=== PATIENT | male | born 1945 | race Caucasian/White ===

== ENCOUNTER → 2019-03-29 | Outpatient (CLI) | payer MEDICARE ==
[2019-03-29 12:40] LABS: Partial Thromboplastin Time 27.2 sec (22.0-30.0); Prothrombin Time 10.5 sec (9.0-12.0)
[2019-03-29 15:58] LABS: T4, Free (Free Thyroxine) 0.9 ng/dL (0.80-1.80)
== END | disposition home or self-care (01) ==
LOC: LABWHC1 12:09
PROVIDERS: ATTEND Psychiatry & Neurology Neurology
DX: I63.9 Cerebral infarction, unspecified (principal); R41.3 Other amnesia; R41.81 Age-related cognitive decline
CPT/HCPCS: 36415; 82175; 82570; 82607; 82747; 82947; 83655; 83825; 84439; 84443; 85610; 85652; 85730; 86038

== ENCOUNTER → 2019-04-11 | Outpatient (CLI) | payer MEDICARE, OTHER ==
--- NOTE | 2019-04-12 06:02 | MR ---
EXAMINATION TYPE: MR brain wo con DATE OF EXAM: 04/11/2019 COMPARISON: NONE HISTORY: Memory and vision loss TECHNIQUE: Multiplanar, multisequence imaging of the brain and brainstem is performed without IV cont rast. FINDINGS: Diffusion weighted images demonstrate no evidence of a recent infarct or other diffusion abnormality. There is no worrisome extra-axial fluid collection. There is diffuse ventricular and sulcal prominenc e. There are scattered foci of T2 hyperintensity seen throughout the white matter bilaterally most pr ominent deep and periventricular levels. In the anterior aspect of the left posterior cranial fossa t here is extra-axial mass measuring 1.7 x 1.7 x 2.2 cm axial image 80 and coronal image 19 of slight T 2 hyperintensity and T1 hypointensity with dural extension left lateral aspect shows posterior to the vestibulocochlear complex felt to reflect a meningioma with local mass effect on the adjacent cerebe llum anterior aspect. Midline structures demonstrate normal morphology. The craniocervical junction appears within normal limits. Normal vascular flow voids are present. The visualized sinuses are clear and the globes are i ntact. IMPRESSION: 1. Mild to moderate diffuse cerebral atrophy and chronic small vessel ischemic change. 2. There is 2.2 cm anterior left posterior cranial fossa extra-axial mass presumed meningioma just po sterior to the left vestibulocochlear complex with local mass effect, neurosurgical referral advised.
== END | disposition home or self-care (01) ==
LOC: RADMRIMAIN 16:56
PROVIDERS: ATTEND Psychiatry & Neurology Neurology
DX: G31.9 Degenerative disease of nervous system, unspecified (principal); I67.82 Cerebral ischemia; H54.7 Unspecified visual loss; R41.3 Other amnesia
CPT/HCPCS: 70551

== ENCOUNTER 2021-03-24 08:16 | Inpatient (IN) | payer MEDICARE, OTHER ==
[2021-03-24] MEDS ORDERED: ACETAMINOPHEN TAB 500 MG TAB PO STA (08:48)
[2021-03-24] MEDS ORDERED: IBUPROFEN 600 MG TAB PO STA (08:48)
[2021-03-24] MEDS ORDERED: cefTRIAXone IN SWFI 1,000 MG/10 ML SYRINGE IVP STA (08:50)
--- NOTE | 2021-03-24 08:53 | ED ---
General Adult HPI - General Chief complaint: Altered Mental Status Stated complaint: confusion Time Seen by Provider: 03/24/21 08:20 Source: EMS, RN notes reviewed, old records reviewed Mode of arrival: EMS Limitations: no limitations - History of Present Illness Initial comments: This is a 75-year-old male presents emergency Department by EMS. Patient is a poor historian he is altered and does not give an accurate history. EMS states patient was found to be altered at his residence. Early this morning he was found walking around his apartment complex naked and a neighbor helped him to his room and help him get dressed and then a few hours later the neighbor found him altered significantly and decided to bring the patient to the emergency dep artment. Patient does have a fever. No other history is available this time. - Related Data Home Medications Medication Instructions Recorded Confirmed Brimonidine Tartrate [Alphagan P 1 drops LEFT EYE BID 03/24/21 03/24/21 0.2% Ophth Soln] Donepezil HCl [Aricept] 10 mg PO DAILY 03/24/21 03/24/21 Ibuprofen [Motrin] 400 mg PO Q6HR PRN 03/24/21 03/24/21 Latanoprost [Xalatan 0.005%] 1 drop LEFT EYE BID 03/24/21 03/24/21 Vitamin C Plus 1 tab PO DAILY 03/24/21 03/24/21 Zinc 50 mg PO DAILY 03/24/21 03/24/21 prednisoLONE ACETATE 1% OPHTH 1 drops LEFT EYE HS 03/24/21 03/24/21 [Pred Forte 1%] Allergies Allergy/AdvReac Type Severity Reaction Status Date / Time No Known Allergies Allergy Verified 03/24/21 08:59 Review of Systems ROS Statement: Those systems with pertinent positive or pertinent negative responses have been documented in the HPI. ROS Other: All systems not noted in ROS Statement are negative. Past Medical History Past Medical History: Unable to Obtain, Dementia History of Any Multi-Drug Resistant Organisms: None Reported Past Surgical History: Unable to Obtain Past Psychological History: No Psychological Hx Reported Smoking Status: Former smoker Past Alcohol Use History: None Reported Past Drug Use History: None Reported General Exam - General Exam Comments Initial Comments: GENERAL: Patient is well-developed and well-nourished. Patient is nontoxic and well- hydrated and is in mild distress. ENT: Neck is soft and supple. No significant lymphadenopathy is noted. Oropharynx is clear. Moist mucous membranes. Neck has full range of motion without eliciting any pain. EYES: The sclera were anicteric and conjunctiva were pink and moist. Extraocular movements were intact and pupils were equal round and reactive to light. Eyelids were unremarkable. PULMONARY: Unlabored respirations. Good breath sounds bilaterally. No audible rales rhonchi or wheezing was noted. CARDIOVASCULAR: There is a regular rate and rhythm without any murmurs gallops or rubs. ABDOMEN: Soft and nontender with normal bowel sounds. SKIN: Skin is clear with no lesions or rashes and otherwise unremarkable. NEUROLOGIC: Patient is alert and oriented 1. Cranial nerves II through XII are grossly intact. Motor and sensory are also intact. Normal speech, volume and content. Symmetrical smile. MUSCULOSKELETAL: Normal extremities with adequate strength and full range of motion. LYMPHATICS: No significant lymphadenopathy is noted PSYCHIATRIC: Unable to assess Limitations: no limitations Course Vital Signs 03/24/21 03/24/21 03/24/21 08:19 09:38 10:55 Temperature 101.6 F H 98.3 F Pulse Rate 90 70 72 Respiratory 18 18 18 Rate Blood Pressure 141/84 137/92 128/72 O2 Sat by Pulse 96 98 98 Oximetry Medical Decision Making - Medical Decision Making EKG shows sinus rhythm at 83 bpm [place] interval is 90 QRS is 96 QT interval 380 QTC is 455. Patient's EKG shows no ST segment elevation or depression. Chest x-ray showed no acute abnormality. Patient was positive for COVID. Patient was given monoclonal antibodies. Patient continued to be more altered than his baseline per his brother and therefore we admitted the patient for altered mental status and not for COVID. Patient will also have a social work consult. I spoke with the [facility] hospitalist and he agreed to admit the patient admitted the patient wrote admitting orders - Lab Data Result diagrams: 03/24/21 09:20 03/24/21 09:20 Lab Results 03/24/21 03/24/21 03/24/21 Range/Units 08:48 09:20 09:20 WBC 2.8 L (3.8-10.6) k/uL RBC 3.76 L (4.30-5.90) m/uL Hgb 11.5 L (13.0-17.5) gm/dL Hct 32.8 L (39.0-53.0) % MCV 87.2 (80.0-100.0) fL MCH 30.6 (25.0-35.0) pg MCHC 35.1 (31.0-37.0) g/dL RDW 13.1 (11.5-15.5) % Plt Count 159 (150-450) k/uL MPV 7.6 Neutrophils % 70 % Lymphocytes % 19 % Monocytes % 9 % Eosinophils % 0 % Basophils % 0 % Neutrophils # 1.9 (1.3-7.7) k/uL Lymphocytes # 0.5 L (1.0-4.8) k/uL Monocytes # 0.3 (0-1.0) k/uL Eosinophils # 0.0 (0-0.7) k/uL Basophils # 0.0 (0-0.2) k/uL PT 11.2 (9.0-12.0) sec INR 1.1 (<1.2) APTT 27.3 (22.0-30.0) sec Sodium (137-145) mmol/L Potassium (3.5-5.1) mmol/L Chloride (98-107) mmol/L Carbon Dioxide (22-30) mmol/L Anion Gap mmol/L BUN (9-20) mg/dL Creatinine (0.66-1.25) mg/dL Est GFR (CKD-EPI)AfAm (>60 ml/min/1.73 sqM) Est GFR (CKD-EPI)NonAf (>60 ml/min/1.73 sqM) Glucose (74-99) mg/dL Plasma Lactic Acid Silvestre (0.7-2.0) mmol/L Calcium (8.4-10.2) mg/dL Total Bilirubin (0.2-1.3) mg/dL AST (17-59) U/L ALT (4-49) U/L Alkaline Phosphatase (38-126) U/L Troponin I (0.000-0.034) ng/mL Total Protein (6.3-8.2) g/dL Albumin (3.5-5.0) g/dL Coronavirus (PCR) Detected A (Not Detectd) Influenza Type A RNA (Not Detectd) Influenza Type B (PCR) (Not Detectd) 12/09/0703/24/21 03/24/21 Range/Units 09:20 09:20 09:20 WBC (3.8-10.6) k/uL RBC (4.30-5.90) m/uL Hgb (13.0-17.5) gm/dL Hct (39.0-53.0) % MCV (80.0-100.0) fL MCH (25.0-35.0) pg MCHC (31.0-37.0) g/dL RDW (11.5-15.5) % Plt Count (150-450) k/uL MPV Neutrophils % % Lymphocytes % % Monocytes % % Eosinophils % % Basophils % % Neutrophils # (1.3-7.7) k/uL Lymphocytes # (1.0-4.8) k/uL Monocytes # (0-1.0) k/uL Eosinophils # (0-0.7) k/uL Basophils # (0-0.2) k/uL PT (9.0-12.0) sec INR (<1.2) APTT (22.0-30.0) sec Sodium 135 L (137-145) mmol/L Potassium 4.3 (3.5-5.1) mmol/L Chloride 100 (98-107) mmol/L Carbon Dioxide 24 (22-30) mmol/L Anion Gap 11 mmol/L BUN 35 H (9-20) mg/dL Creatinine 1.13 (0.66-1.25) mg/dL Est GFR (CKD-EPI)AfAm 75 (>60 ml/min/1.73 sqM) Est GFR (CKD-EPI)NonAf 64 (>60 ml/min/1.73 sqM) Glucose 94 (74-99) mg/dL Plasma Lactic Acid Silvestre 0.9 (0.7-2.0) mmol/L Calcium 8.8 (8.4-10.2) mg/dL Total Bilirubin 0.3 (0.2-1.3) mg/dL AST 48 (17-59) U/L ALT 18 (4-49) U/L Alkaline Phosphatase 78 (38-126) U/L Troponin I <0.012 (0.000-0.034) ng/mL Total Protein 7.4 (6.3-8.2) g/dL Albumin 4.4 (3.5-5.0) g/dL Coronavirus (PCR) (Not Detectd) Influenza Type A RNA (Not Detectd) Influenza Type B (PCR) (Not Detectd) 03/24/21 Range/Units 09:20 WBC (3.8-10.6) k/uL RBC (4.30-5.90) m/uL Hgb (13.0-17.5) gm/dL Hct (39.0-53.0) % MCV (80.0-100.0) fL MCH (25.0-35.0) pg MCHC (31.0-37.0) g/dL RDW (11.5-15.5) % Plt Count (150-450) k/uL MPV Neutrophils % % Lymphocytes % % Monocytes % % Eosinophils % % Basophils % % Neutrophils # (1.3-7.7) k/uL Lymphocytes # (1.0-4.8) k/uL Monocytes # (0-1.0) k/uL Eosinophils # (0-0.7) k/uL Basophils # (0-0.2) k/uL PT (9.0-12.0) sec INR (<1.2) APTT (22.0-30.0) sec Sodium (137-145) mmol/L Potassium (3.5-5.1) mmol/L Chloride (98-107) mmol/L Carbon Dioxide (22-30) mmol/L Anion Gap mmol/L BUN (9-20) mg/dL Creatinine (0.66-1.25) mg/dL Est GFR (CKD-EPI)AfAm (>60 ml/min/1.73 sqM) Est GFR (CKD-EPI)NonAf (>60 ml/min/1.73 sqM) Glucose (74-99) mg/dL Plasma Lactic Acid Silvestre (0.7-2.0) mmol/L Calcium (8.4-10.2) mg/dL Total Bilirubin (0.2-1.3) mg/dL AST (17-59) U/L ALT (4-49) U/L Alkaline Phosphatase (38-126) U/L Troponin I (0.000-0.034) ng/mL Total Protein (6.3-8.2) g/dL Albumin (3.5-5.0) g/dL Coronavirus (PCR) (Not Detectd) Influenza Type A RNA Not Detected (Not Detectd) Influenza Type B (PCR) Not Detected (Not Detectd) Disposition Clinical Impression: Altered mental status, COVID-19 Disposition: ADMITTED IP TO THIS HOSP Referrals: None,Stated [Primary Care Provider] - 1-2 days Time of Disposition: 11:57
[2021-03-24] MEDS: SODIUM CHLORIDE 0.9% 500 ML 500 ML IV SCH ×2 (09:32→13:45)
--- NOTE | 2021-03-24 09:34 | XR ---
EXAMINATION TYPE: XR chest 1V portable DATE OF EXAM: 03/24/2021 COMPARISON: None HISTORY: Fever TECHNIQUE: Single frontal view of the chest is obtained. FINDINGS: There is no focal air space opacity, pleural effusion, or pneumothorax seen. . The heart size is normal and the pulmonary vasculature is not congested. The right hilum is prominent and the possibility of mass is not excluded. The osseous structures are intact. IMPRESSION: 1. Prominent right hilum and adenopathy or mass is not excluded. CT of the chest might be useful for further evaluation. 2. No abnormality of the lungs
[2021-03-24 09:53] LABS: Basophils % (A) 0 %; Eosinophils % (A) 0 %; HCT 32.8 % (39.0-53.0); HGB 11.5 gm/dL (13.0-17.5); Lymphocytes # (A) 0.5 k/uL (1.0-4.8); Lymphocytes % (A) 19 %; MCH 30.6 pg (25.0-35.0); MCHC 35.1 g/dL (31.0-37.0); MCV 87.2 fL (80.0-100.0); Mean Platelet Volume 7.6; Monocytes # (A) 0.3 k/uL (0-1.0); Monocytes % (A) 9 %; Neutrophils # (A) 1.9 k/uL (1.3-7.7); Neutrophils % (A) 70 %; Platelet Count 159 k/uL (150-450); RBC 3.76 m/uL (4.30-5.90); RDW 13.1 % (11.5-15.5); WBC 2.8 k/uL (3.8-10.6)
[2021-03-24 09:55] LABS: Albumin 4.4 g/dL (3.5-5.0); Calcium 8.8 mg/dL (8.4-10.2); Potassium 4.3 mmol/L (3.5-5.1); Total Bilirubin 0.3 mg/dL (0.2-1.3); Total Protein 7.4 g/dL (6.3-8.2)
[2021-03-24 10:03] LABS: INR 1.1 (<1.2); Partial Thromboplastin Time 27.3 sec (22.0-30.0); Prothrombin Time 11.2 sec (9.0-12.0)
[2021-03-24] MEDS ORDERED: SODIUM CHLORIDE 0.9% 1,000 ML IV ONE (11:58)
[2021-03-24] MEDS ORDERED: SODIUM CHLORIDE 0.9% 50 ML IVPB ONE (12:00)
[2021-03-24] MEDS ORDERED: SOTROVIMAB (EUA) 500 MG in SODIUM CHLORIDE 0.9% 100 ML IVPB ONE (12:00)
--- NOTE | 2021-03-24 20:09 | P.HPIM ---
History of Present Illness H&P Date: 03/24/21 Chief Complaint: Altered mental status Patient is a 75-year-old male with a known history of dementia was brought to the hospital by EMS due to altered mental status. Patient is a poor historian. Apparently EMS found the patient to be altered at his residence. Patient's n eighbor in the morning he was found walking around his apartment complex make it and enable heparin will resume and get him dressed. Fevers later neighbor found him altered significantly and decided to call EMS and patient was brought to the emergency room. Patient states that she has not been feeling well for the past 3-4 days. In the ER blood pressure 141/84 pulse 90 respirations 18 and T-max 11.6 and pulse ox 96% on room air. Chest x-ray showed prominent right hilum and adenopathy or mass is not excluded. CT of the chest might be helpful for further evaluation. No abnormality of the lungs. EKG showed sinus rhythm with short [place] interval. Laboratory data showed WBC 2.8 hemoglobin 11.5 and platelets 159 Lymphocytes 0.5 Sodium 1:30 depression 4.3 chloride 100 bicarb is 24 BUN 35 and creatinine 1.13 Liver enzymes are not elevated. Troponin 1 negative Urinalysis is negative for infection. Cor with 19 PCR detected. Review of Systems Constitutional: Patient denies any fever or chills . No generalized weakness or weight loss. Abdomen: Patient denied nausea vomiting and diarrhea and abdominal pain. Cardiovascular: Patient denies any chest pain or short of breath no palpitations. Respiratory: patient denied any cough is from production. Minimal shortness of breath Neurologic: Patient denied any numbness or tingling headache. Complete review of systems could not be obtained from the patient. Past Medical History Past Medical History: Unable to Obtain, Dementia History of Any Multi-Drug Resistant Organisms: None Reported Past Surgical History: Unable to Obtain Past Psychological History: No Psychological Hx Reported Smoking Status: Former smoker Past Alcohol Use History: None Reported Past Drug Use History: None Reported Medications and Allergies Home Medications Medication Instructions Recorded Confirmed Type Brimonidine Tartrate [Alphagan P 1 drops LEFT EYE BID 03/24/21 03/24/21 History 0.2% Ophth Soln] Donepezil HCl [Aricept] 10 mg PO DAILY 03/24/21 03/24/21 History Ibuprofen [Motrin] 400 mg PO Q6HR PRN 03/24/21 03/24/21 History Latanoprost [Xalatan 0.005%] 1 drop LEFT EYE BID 03/24/21 03/24/21 History Vitamin C Plus 1 tab PO DAILY 03/24/21 03/24/21 History Zinc 50 mg PO DAILY 03/24/21 03/24/21 History prednisoLONE ACETATE 1% OPHTH 1 drops LEFT EYE HS 03/24/21 03/24/21 History [Pred Forte 1%] Allergies Allergy/AdvReac Type Severity Reaction Status Date / Time No Known Allergies Allergy Verified 03/24/21 08:59 Physical Exam Vitals: Vital Signs Temp Pulse Resp BP Pulse Ox 03/24/21 18:00 75 16 123/83 98 03/24/21 15:00 82 17 118/88 95 03/24/21 10:55 98.3 F 72 18 128/72 98 03/24/21 09:38 70 18 137/92 98 03/24/21 08:19 101.6 F H 90 18 141/84 96 Intake and Output 03/24/21 03/24/21 03/24/21 06:59 14:59 22:59 Other: Weight 62.596 kg PHYSICAL EXAMINATION: Patient is lying in the bed comfortably, no acute distress, awake alert and oriented. Confused.. HEENT: Normocephalic. Neck is supple. Pupils reactive. Nostrils clear. Oral cavity is moist. Neck reveals no JVD, carotid bruits, or thyromegaly. CHEST EXAMINATION: Trachea is central. Symmetrical expansion. Scattered coarse sounds. Lung guevara clear to auscultation and percussion. CARDIAC: Normal S1, S2 with no gallops. No murmurs ABDOMEN: Soft. Bowel sounds normal. No organomegaly. No abdominal bruits. Extremities: reveal no edema. No clubbing or cyanosis Neurologically awake, alert, oriented x2-3 with well-coordinated movements. Underlying dementia. No gross focal deficits noted Skin: No rash or skin lesions. Psychiatric: Coperative. Could not be obtained completely. Musculoskeletal: No joint swelling or deformity. Normal range of motion. Results CBC & Chem 7: 03/25/21 04:47 03/24/21 09:20 Labs: Abnormal Lab Results - Last 24 Hours (Table) 03/24/21 03/24/21 03/24/21 Range/Units 08:48 09:20 09:20 WBC 2.8 L (3.8-10.6) k/uL RBC 3.76 L (4.30-5.90) m/uL Hgb 11.5 L (13.0-17.5) gm/dL Hct 32.8 L (39.0-53.0) % Lymphocytes # 0.5 L (1.0-4.8) k/uL Sodium 135 L (137-145) mmol/L BUN 35 H (9-20) mg/dL Coronavirus (PCR) Detected A (Not Detectd) Thrombosis Risk Factor Assmnt - DVT/VTE Prophylaxis DVT/VTE Prophylaxis: Pharmacologic Prophylaxis ordered Assessment and Plan Assessment: Acute covid 19 infection. Patient has not been feeling well for the past 3-4 days. Not hypoxic. Received monoclonal antibodies in the ER. Altered mental status possible metabolic encephalopathy due to infection Neutropenia and normocytic anemia Prominent right hilum and adenopathy. Mass cannot be excluded. Dehydration and volume depletion with elevated BUN level. Dementia History of glaucoma Mild to moderate protein calorie malnutrition DVT prophylaxis with Lovenox subcu Plan: Patient will be continued on gentle IV hydration and monitor respiratory status closely. Supplemental oxygen as needed. Continue with Lovenox subcu and multivitamins for coronary 19 infection. Patient is not hypoxic currently and does not need dexamethasone. Follow-up inflammatory markers. Continue to follow electrolytes. Continue with home medications and follow up closely. Prognosis is guarded this time. Time with Patient: Greater than 30
[2021-03-25] MEDS ORDERED: ACETAMINOPHEN TAB 500 MG TAB PO STA (00:55)
[2021-03-25] MEDS ORDERED: IBUPROFEN 400 MG TAB PO STA (06:20)
[2021-03-25 08:01] LABS: Appearance,Urine Clear (Clear); Bilirubin,Urine Negative (Negative); Blood,Urine Trace (Negative); Color,Urine Yellow; Glucose,Urine (UA) Negative (Negative); Hyaline Casts,Urine 1 /lpf (0-2); Ketones,Urine 1+ (Negative); Leukocyte Esterase,Urine Negative (Negative); Nitrite,Urine Negative (Negative); PH, Urine 5.5 (5.0-8.0); Protein,Urine Trace (Negative); RBC,Urine <1 /hpf (0-5); Specific Gravity,Urine 1.018 (1.001-1.035); Urobilinogen,Urine <2.0 mg/dL (<2.0); WBC,Urine <1 /hpf (0-5)
[2021-03-25 08:54] LABS: Basophils # (A) 0 X 10*3/uL (0.00-0.10); Basophils % (A) 0 %; Eosinophils # (A) 0 X 10*3/uL (0.04-0.35); Eosinophils % (A) 0 %; HCT 32.5 % (39.6-50.0); HGB 10.6 g/dL (13.0-17.0); Lymphocytes # (A) 0.63 X 10*3/uL (0.90-5.00); Lymphocytes % (A) 15.4 %; MCH 29.6 pg (27.0-32.0); MCHC 32.6 g/dL (32.0-37.0); MCV 90.8 fL (80.0-97.0); Mean Platelet Volume 9.9 fL (9.5-12.2); Monocytes # (A) 0.27 X 10*3/uL (0.20-1.00); Monocytes % (A) 6.6 %; Neutrophils # (A) 3.18 X 10*3/uL (1.80-7.70); Neutrophils % (A) 77.8 %; Platelet Count 147 X 10*3/uL (140-440); RBC 3.58 X 10*6/uL (4.40-5.60); RDW 12.9 % (11.5-14.5); WBC 4.09 X 10*3/uL (4.50-10.00)
[2021-03-25 09:58] LABS: African American GFR (CKD) 97.9 (60.0-200.0); BUN/Creat Ratio 22.33 Ratio (12.00-20.00); Blood Urea Nitrogen 20.1 mg/dL (9.0-27.0); Calcium 8.2 mg/dL (8.7-10.3); Carbon Dioxide 21.3 mmol/L (20.0-27.5); Chloride 102 mmol/L (96-109); Glucose 101 mg/dL (70-110); Non-African American GFR(CKD) 84.4 (60.0-200.0); Potassium 4.1 mmol/L (3.5-5.5); Sodium 137 mmol/L (135-145)
[2021-03-25 09:59] LABS: LDH 218 U/L (120-246)
[2021-03-25] MEDS: ENOXAPARIN 40 MG/0.4 ML SYRINGE SQ SCH (09:59)
[2021-03-25] MEDS: BRIMONIDINE TARTRATE 0.2% DROPS 5 ML BTL LEFT EYE SCH ×2 (10:00→21:40)
[2021-03-25] MEDS: DONEPEZIL 10 MG TAB PO SCH (10:00)
[2021-03-25] MEDS: ASCORBIC ACID 500 MG TAB PO SCH (10:00)
[2021-03-25] MEDS: ZINC SULFATE 220 MG CAP PO SCH (10:00)
[2021-03-25] MEDS: CHOLECALCIFEROL 25 MCG (1000 IU) TABLET PO SCH (10:00)
[2021-03-25] MEDS: LATANOPROST 0.005% OPHTH DROPS 2.5 ML BTL LEFT EYE SCH ×2 (10:00→21:41)
[2021-03-25] MEDS: prednisoLONE ACETATE 1% OPHTH DROPS 5 ML BTL LEFT EYE SCH (21:40)
[2021-03-26] MEDS: ASCORBIC ACID 500 MG TAB PO SCH (08:55)
[2021-03-26] MEDS: CHOLECALCIFEROL 25 MCG (1000 IU) TABLET PO SCH (08:55)
[2021-03-26] MEDS: ZINC SULFATE 220 MG CAP PO SCH (08:55)
[2021-03-26] MEDS: DONEPEZIL 10 MG TAB PO SCH (08:55)
[2021-03-26] MEDS: ENOXAPARIN 40 MG/0.4 ML SYRINGE SQ SCH (08:55)
[2021-03-26] MEDS: BRIMONIDINE TARTRATE 0.2% DROPS 5 ML BTL LEFT EYE SCH ×2 (09:01→21:56)
[2021-03-26] MEDS: LATANOPROST 0.005% OPHTH DROPS 2.5 ML BTL LEFT EYE SCH ×2 (09:02→21:57)
--- NOTE | 2021-03-26 10:58 | P.PN ---
Subjective Progress Note Date: 03/25/21 Principal diagnosis: Acute covid 19 infection and generalized weakness and altered mental status on admission. Patient is a 75-year-old male with a known history of dementia was brought to the hospital by EMS due to altered mental status. Patient is a poor historian. Apparently EMS found the patient to be altered at his residence. Patient's neighbor in the morning he was found walking around his apartment complex make it and enable heparin will resume and get him dressed. Fevers later neighbor found him altered significantly and decided to call EMS and patient was brought to the emergency room. Patient states that she has not been feeling well for the past 3-4 days. In the ER blood pressure 141/84 pulse 90 respirations 18 and T-max 11.6 and pulse ox 96% on room air. Chest x-ray showed prominent right hilum and adenopathy or mass is not excluded. CT of the chest might be helpful for further evaluation. No abnormality of the lungs. EKG showed sinus rhythm with short [place] interval. Laboratory data showed WBC 2.8 hemoglobin 11.5 and platelets 159 Lymphocytes 0.5 Sodium 1:30 depression 4.3 chloride 100 bicarb is 24 BUN 35 and creatinine 1.13 Liver enzymes are not elevated. Troponin 1 negative Urinalysis is negative for infection. Cor with 19 PCR detected. 03/25/2021 Patient is in the emergency room. Still having mild confusion. It appears to be weak. No complaints of chest pain or worsening shortness breath. Patient is maintained oxygen 97-95% on room air. No complaints of chest pain. No headache or dizziness or lightheadedness. Patient is a poor historian due to underlying dementia. Patient has been afebrile. Continue on Lovenox and multivitamins. Continued on gentle IV hydration. Encourage oral intake and PTOT consulted. Laboratory data showed WBC 4.0 hemoglobin 10.6 and platelets 147 lymphocytes 0.63 BUN 20 and creatinine 0.9 TSH by 0.504. Urinalysis is negative for infection. Current medications reviewed. Objective - Vital Signs Vital signs: Vital Signs Temp 98.0 F 03/26/21 06:23 Pulse 77 03/26/21 06:23 Resp 19 03/26/21 06:23 BP 135/87 03/26/21 06:23 Pulse Ox 98 03/26/21 06:23 Intake & Output 1203/26/21 03/26/21 18:59 06:59 18:59 Weight 62.596 kg Other: # Voids 3 2 - Exam PHYSICAL EXAMINATION: Patient is lying in the bed comfortably, no acute distress, awake alert and oriented. Generalized weakness. HEENT: Normocephalic. Neck is supple. Pupils reactive. Nostrils clear. Oral cavity is moist. Neck reveals no JVD, carotid bruits, or thyromegaly. CHEST EXAMINATION: Trachea is central. Symmetrical expansion. Scattered coarse sounds. Lung guevara clear to auscultation and percussion. CARDIAC: Normal S1, S2 with no gallops. No murmurs ABDOMEN: Soft. Bowel sounds normal. No organomegaly. No abdominal bruits. Extremities: reveal no edema. No clubbing or cyanosis Neurologically awake, alert, oriented x2-3 with well-coordinated movements. Underlying dementia. No gross focal deficits noted Skin: No rash or skin lesions. Psychiatric: Coperative. Could not be obtained completely. Musculoskeletal: No joint swelling or deformity. Normal range of motion. - Labs CBC & Chem 7: 03/25/21 04:47 03/25/21 04:47 Labs: Microbiology - Last 24 Hours (Table) 03/24/21 09:20 Blood Culture - Preliminary Blood No Growth after 24 hours 03/24/21 09:30 Blood Culture - Preliminary Blood No Growth after 24 hours Assessment and Plan Assessment: Acute covid 19 infection. Patient has not been feeling well for the past 3-4 days. Not hypoxic. Received monoclonal antibodies in the ER. Altered mental status possible metabolic encephalopathy due to infection Neutropenia and normocytic anemia Prominent right hilum and adenopathy. Mass cannot be excluded. Dehydration and volume depletion with elevated BUN level. Dementia History of glaucoma Mild to moderate protein calorie malnutrition DVT prophylaxis with Lovenox subcu Plan: Patient will be continued on gentle IV hydration and monitor respiratory status closely. Supplemental oxygen as needed. Continue with Lovenox subcu and multivitamins for coronary 19 infection. Patient is not hypoxic currently and does not need dexamethasone. Follow-up inflammatory markers. Continue to follow electrolytes. Continue with home medications and follow up closely. PTOT be consulted and possible discharge to home versus rehab. Prognosis is guarded this time.
[2021-03-26 13:00] VITALS: BMI 19.2
[2021-03-26] MEDS: prednisoLONE ACETATE 1% OPHTH DROPS 5 ML BTL LEFT EYE SCH (21:57)
[2021-03-27] MEDS: LATANOPROST 0.005% OPHTH DROPS 2.5 ML BTL LEFT EYE SCH ×2 (08:22→22:10)
[2021-03-27] MEDS: BRIMONIDINE TARTRATE 0.2% DROPS 5 ML BTL LEFT EYE SCH ×2 (08:22→22:10)
[2021-03-27] MEDS: DONEPEZIL 10 MG TAB PO SCH (08:27)
[2021-03-27] MEDS: ENOXAPARIN 40 MG/0.4 ML SYRINGE SQ SCH (08:27)
[2021-03-27] MEDS: ZINC SULFATE 220 MG CAP PO SCH (08:27)
[2021-03-27] MEDS: ASCORBIC ACID 500 MG TAB PO SCH (08:27)
[2021-03-27] MEDS: CHOLECALCIFEROL 25 MCG (1000 IU) TABLET PO SCH (08:27)
[2021-03-27] MEDS: prednisoLONE ACETATE 1% OPHTH DROPS 5 ML BTL LEFT EYE SCH (22:10)
[2021-03-28] MEDS: ASCORBIC ACID 500 MG TAB PO SCH (08:33)
[2021-03-28] MEDS: ENOXAPARIN 40 MG/0.4 ML SYRINGE SQ SCH (08:33)
[2021-03-28] MEDS: CHOLECALCIFEROL 25 MCG (1000 IU) TABLET PO SCH (08:33)
[2021-03-28] MEDS: ZINC SULFATE 220 MG CAP PO SCH (08:33)
[2021-03-28] MEDS: DONEPEZIL 10 MG TAB PO SCH (08:33)
[2021-03-28] MEDS: BRIMONIDINE TARTRATE 0.2% DROPS 5 ML BTL LEFT EYE SCH ×2 (08:43→21:04)
[2021-03-28] MEDS: LATANOPROST 0.005% OPHTH DROPS 2.5 ML BTL LEFT EYE SCH ×2 (08:43→21:04)
--- NOTE | 2021-03-28 11:46 | P.PN ---
Subjective Progress Note Date: 03/27/21 Principal diagnosis: Acute covid 19 infection and generalized weakness and altered mental status on admission. Patient is a 75-year-old male with a known history of dementia was brought to the hospital by EMS due to altered mental status. Patient is a poor historian. Apparently EMS found the patient to be altered at his residence. Patient's neighbor in the morning he was found walking around his apartment complex make it and enable heparin will resume and get him dressed. Fevers later neighbor found him altered significantly and decided to call EMS and patient was brought to the emergency room. Patient states that she has not been feeling well for the past 3-4 days. In the ER blood pressure 141/84 pulse 90 respirations 18 and T-max 11.6 and pulse ox 96% on room air. Chest x-ray showed prominent right hilum and adenopathy or mass is not excluded. CT of the chest might be helpful for further evaluation. No abnormality of the lungs. EKG showed sinus rhythm with short GA interval. Laboratory data showed WBC 2.8 hemoglobin 11.5 and platelets 159 Lymphocytes 0.5 Sodium 1:30 depression 4.3 chloride 100 bicarb is 24 BUN 35 and creatinine 1.13 Liver enzymes are not elevated. Troponin 1 negative Urinalysis is negative for infection. Cor with 19 PCR detected. 03/25/2021 Patient is in the emergency room. Still having mild confusion. It appears to be weak. No complaints of chest pain or worsening shortness breath. Patient is maintained oxygen 97-95% on room air. No complaints of chest pain. No headache or dizziness or lightheadedness. Patient is a poor historian due to underlying dementia. Patient has been afebrile. Continue on Lovenox and multivitamins. Continued on gentle IV hydration. Encourage oral intake and PTOT consulted. Laboratory data showed WBC 4.0 hemoglobin 10.6 and platelets 147 lymphocytes 0.63 BUN 20 and creatinine 0.9 TSH by 0.504. Urinalysis is negative for infection. 03/26/2021 Patient is currently resting in the bed comfortably. He appears to be awake alert and oriented 3. Patient still feels weak. PT OT is following. Oxygen saturation 98% on room air. Patient is being controlled on Lovenox subcu. Patient has been afebrile. No nausea vomiting or abdominal pain or diarrhea. Continued on multivitamins. Laboratory data reviewed. Patient may need rehab transfer. 03/27/2021 Patient is currently resting in the bed. Awake alert and oriented. PT OT is following. Saturating well on room air. Continue Lovenox subcu and multivitamins. Laboratory data reviewed. Anticipate discharged to rehab versus home with home PT. Current medications reviewed. Objective - Vital Signs Vital signs: Vital Signs Temp 97.8 F 03/27/21 17:45 Pulse 78 03/27/21 17:45 Resp 16 03/27/21 17:45 BP 115/72 03/27/21 17:45 Pulse Ox 96 03/27/21 17:45 Intake & Output 03/27/21 03/27/21 03/28/21 06:59 18:59 06:59 Intake Total 110 Balance 110 Intake: Oral 110 Other: # Voids 3 1 - Exam PHYSICAL EXAMINATION: Patient is lying in the bed comfortably, no acute distress, awake alert and oriented. Generalized weakness. HEENT: Normocephalic. Neck is supple. Pupils reactive. Nostrils clear. Oral cavity is moist. Neck reveals no JVD, carotid bruits, or thyromegaly. CHEST EXAMINATION: Trachea is central. Symmetrical expansion. Scattered coarse sounds. Lung guevara clear to auscultation and percussion. CARDIAC: Normal S1, S2 with no gallops. No murmurs ABDOMEN: Soft. Bowel sounds normal. No organomegaly. No abdominal bruits. Extremities: reveal no edema. No clubbing or cyanosis Neurologically awake, alert, oriented x2-3 with well-coordinated movements. Und erlying dementia. No gross focal deficits noted Skin: No rash or skin lesions. Psychiatric: Coperative. Could not be obtained completely. Musculoskeletal: No joint swelling or deformity. Normal range of motion. - Labs CBC & Chem 7: 03/25/21 04:47 03/25/21 04:47 Labs: Microbiology - Last 24 Hours (Table) 03/24/21 09:30 Blood Culture - Preliminary Blood No Growth after 72 hours 03/24/21 09:20 Blood Culture - Preliminary Blood No Growth after 72 hours Assessment and Plan Assessment: Acute covid 19 infection. Patient has not been feeling well for the past 3-4 d ays. Not hypoxic. Received monoclonal antibodies in the ER. Altered mental status possible metabolic encephalopathy due to infection Neutropenia and normocytic anemia Prominent right hilum and adenopathy. Mass cannot be excluded. Dehydration and volume depletion with elevated BUN level. Dementia History of glaucoma Mild to moderate protein calorie malnutrition DVT prophylaxis with Lovenox subcu Plan: Patient will be continued on gentle IV hydration and monitor respiratory status closely. Supplemental oxygen as needed. Continue with Lovenox subcu and multivitamins for coronary 19 infection. Patient is not hypoxic currently and does not need dexamethasone. Follow-up inflammatory markers. Continue to follow electrolytes. Continue with home medications and follow up closely. PTOT be consulted and possible discharge to home versus rehab. Prognosis is guarded this time.
[2021-03-28 12:58] LABS: Basophils % (A) 1 %; Eosinophils % (A) 1 %; HCT 35.9 % (39.0-53.0); Lymphocytes # (A) 0.9 k/uL (1.0-4.8); Lymphocytes % (A) 20 %; MCH 30.4 pg (25.0-35.0); MCHC 33.3 g/dL (31.0-37.0); MCV 91.3 fL (80.0-100.0); Mean Platelet Volume 7.9; Monocytes # (A) 0.3 k/uL (0-1.0); Monocytes % (A) 6 %; Neutrophils # (A) 3.2 k/uL (1.3-7.7); Neutrophils % (A) 71 %; Platelet Count 243 k/uL (150-450); RBC 3.94 m/uL (4.30-5.90); WBC 4.6 k/uL (3.8-10.6)
[2021-03-28 13:10] LABS: African American GFR (CKD) >90 (>60 ml/min/1.73 sqM); Anion Gap 10 mmol/L; Blood Urea Nitrogen 22 mg/dL (9-20); Calcium 8.9 mg/dL (8.4-10.2); Carbon Dioxide 25 mmol/L (22-30); Chloride 104 mmol/L (98-107); Glucose 101 mg/dL (74-99); Non-African American GFR(CKD) 86 (>60 ml/min/1.73 sqM); Potassium 4.1 mmol/L (3.5-5.1); Sodium 139 mmol/L (137-145)
[2021-03-28] MEDS: prednisoLONE ACETATE 1% OPHTH DROPS 5 ML BTL LEFT EYE SCH (21:04)
[2021-03-29] MEDS: ZINC SULFATE 220 MG CAP PO SCH (08:07)
[2021-03-29] MEDS: ASCORBIC ACID 500 MG TAB PO SCH (08:07)
[2021-03-29] MEDS: CHOLECALCIFEROL 25 MCG (1000 IU) TABLET PO SCH (08:08)
[2021-03-29] MEDS: DONEPEZIL 10 MG TAB PO SCH (08:08)
[2021-03-29] MEDS: ENOXAPARIN 40 MG/0.4 ML SYRINGE SQ SCH (08:10)
[2021-03-29] MEDS: LATANOPROST 0.005% OPHTH DROPS 2.5 ML BTL LEFT EYE SCH ×2 (08:37→21:03)
[2021-03-29] MEDS: BRIMONIDINE TARTRATE 0.2% DROPS 5 ML BTL LEFT EYE SCH ×2 (08:37→21:03)
--- NOTE | 2021-03-29 19:10 | P.PN ---
Subjective Patient is a 75-year-old male with a known history of dementia was brought to the hospital by EMS due to altered mental status. Patient is a poor historian. Apparently EMS found the patient to be altered at his residence. Patient's neighbor in the morning he was found walking around his apartment complex make it and enable heparin will resume and get him dressed. Fevers later neighbor found him altered significantly and decided to call EMS and patient was brought to the emergency room. Patient states that she has not been feeling well for the past 3-4 days. In the ER blood pressure 141/84 pulse 90 respirations 18 and T-max 11.6 and pul se ox 96% on room air. Chest x-ray showed prominent right hilum and adenopathy or mass is not excluded. CT of the chest might be helpful for further evaluation. No abnormality of the lungs. EKG showed sinus rhythm with short DE interval. Laboratory data showed WBC 2.8 hemoglobin 11.5 and platelets 159 Lymphocytes 0.5 Sodium 1:30 depression 4.3 chloride 100 bicarb is 24 BUN 35 and creatinine 1.13 Liver enzymes are not elevated. Troponin 1 negative Urinalysis is negative for infection. Cor with 19 PCR detected. 03/25/2021 Patient is in the emergency room. Still having mild confusion. It appears to be weak. No complaints of chest pain or worsening shortness breath. Patient is maintained oxygen 97-95% on room air. No complaints of chest pain. No headache or dizziness or lightheadedness. Patient is a poor historian due to underlying dementia. Patient has been afebrile. Continue on Lovenox and multivitamins. Continued on gentle IV hydration. Encourage oral intake and PTOT consulted. Laboratory data showed WBC 4.0 hemoglobin 10.6 and platelets 147 lymphocytes 0.63 BUN 20 and creatinine 0.9 TSH by 0.504. Urinalysis is negative for infection. 03/26/2021 Patient is currently resting in the bed comfortably. He appears to be awake alert and oriented 3. Patient still feels weak. PT OT is following. Oxygen saturation 98% on room air. Patient is being controlled on Lovenox subcu. Patient has been afebrile. No nausea vomiting or abdominal pain or diarrhea. Continued on multivitamins. Laboratory data reviewed. Patient may need rehab transfer. 03/27/2021 Patient is currently resting in the bed. Awake alert and oriented. PT OT is following. Saturating well on room air. Continue Lovenox subcu and multivitamins. Laboratory data reviewed. Anticipate discharged to rehab versus home with home PT. Subjective: 03/28/2021 This is a pleasant 75 years old male advanced dementia. He shouldn't presents because he was roaming in his apartment while naked. Patient was found to have coated 19 infection without hypoxia, no respiratory symptoms. No fever. No gastroenteritis-like picture. Hemodynamics please and vitals stable. Patient was kept on multiple vitamin supplement Lovenox for DVT and PE prophylaxis Patient is medically stable for discharge, however family cannot take care of him and pending placement, however because of his COVID-19 infection and because of his risk of elopement his placement was not easy. Discussed the case with hospice case manager and staff. Objective - Vital Signs Vital signs: Vital Signs Temp 98.4 F 03/29/21 10:02 Pulse 66 03/29/21 10:02 Resp 18 03/29/21 10:02 BP 121/85 03/29/21 10:02 Pulse Ox 98 03/29/21 10:02 Intake & Output 03/28/21 03/29/21 03/29/21 18:59 06:59 18:59 Weight 62.596 kg Other: # Voids 2 - Exam -GENERAL: The patient is alert and oriented x0, pleasant but confused, answer some questions but disoriented to surrounded, not in any acute distress. Well developed, well nourished. HEENT: Pupils are round and equally reacting to light. EOMI. No scleral icterus. No conjunctival pallor. Normocephalic, atraumatic. No pharyngeal erythema. No thyromegaly. CARDIOVASCULAR: S1 and S2 present. No murmurs, rubs, or gallops. PULMONARY: Chest is clear to auscultation, no wheezing or crackles. ABDOMEN: Soft, nontender, nondistended, normoactive bowel sounds. No palpable organomegaly. MUSCULOSKELETAL: No joint swelling or deformity. EXTREMITIES: No cyanosis, clubbing, or pedal edema. NEUROLOGICAL: Gross neurological examination did not reveal any focal deficits. SKIN: No rashes. no petechiae. - Labs CBC & Chem 7: 03/28/21 12:09 03/28/21 12:09 Labs: Abnormal Lab Results - Last 24 Hours (Table) 03/28/21 03/28/21 Range/Units 12:09 12:09 RBC 3.94 L (4.30-5.90) m/uL Hgb 12.0 L (13.0-17.5) gm/dL Hct 35.9 L (39.0-53.0) % Lymphocytes # 0.9 L (1.0-4.8) k/uL BUN 22 H (9-20) mg/dL Glucose 101 H (74-99) mg/dL Microbiology - Last 24 Hours (Table) 03/24/21 09:20 Blood Culture - Preliminary Blood No Growth after 120 hours 03/24/21 09:30 Blood Culture - Preliminary Blood No Growth after 120 hours Assessment and Plan Assessment: Acute covid 19 infection. Asymptomatic. Not hypoxic. Received monoclonal antibodies in the ER. Advanced dementia Neutropenia and normocytic anemia Prominent right hilum and adenopathy. Mass cannot be excluded. Dehydration and volume depletion with elevated BUN level. Improved History of glaucoma Mild to moderate protein calorie malnutrition Plan: This is a pleasant 75 years old male with advanced dementia and Covid Continue with multiple vitamins, vitamin C, vitamin D and zinc. Patient is medically stable for discharge pending placement. antichecking iron worker/hospice case manager on the case. Labs and medication were reviewed.. Continue same treatment. Continue with symptomatic treatment. Resume home medication. Monitor lytes and vitals. DVT and GI prophylaxis. Further recommendationsas per clinical course of the patient DVT prophylaxis: Subcutaneous Lovenox Prognosis is guarded this time.
[2021-03-29] MEDS: prednisoLONE ACETATE 1% OPHTH DROPS 5 ML BTL LEFT EYE SCH (21:04)
[2021-03-30] MEDS: ENOXAPARIN 40 MG/0.4 ML SYRINGE SQ SCH (09:56)
[2021-03-30] MEDS: DONEPEZIL 10 MG TAB PO SCH (09:57)
[2021-03-30] MEDS: LATANOPROST 0.005% OPHTH DROPS 2.5 ML BTL LEFT EYE SCH ×2 (09:57→22:31)
[2021-03-30] MEDS: BRIMONIDINE TARTRATE 0.2% DROPS 5 ML BTL LEFT EYE SCH ×2 (09:57→22:31)
[2021-03-30] MEDS: CHOLECALCIFEROL 25 MCG (1000 IU) TABLET PO SCH (09:57)
[2021-03-30] MEDS: ZINC SULFATE 220 MG CAP PO SCH (09:57)
[2021-03-30] MEDS: ASCORBIC ACID 500 MG TAB PO SCH (09:57)
--- NOTE | 2021-03-30 14:24 | P.PN ---
Subjective Patient is a 75-year-old male with a known history of dementia was brought to the hospital by EMS due to altered mental status. Patient is a poor historian. Apparently EMS found the patient to be altered at his residence. Patient's neighbor in the morning he was found walking around his apartment complex make it and enable heparin will resume and get him dressed. Fevers later neighbor found him altered significantly and decided to call EMS and patient was brought to the emergency room. Patient states that she has not been feeling well for the past 3-4 days. In the ER blood pressure 141/84 pulse 90 respirations 18 and T-max 11.6 and pul se ox 96% on room air. Chest x-ray showed prominent right hilum and adenopathy or mass is not excluded. CT of the chest might be helpful for further evaluation. No abnormality of the lungs. EKG showed sinus rhythm with short MI interval. Laboratory data showed WBC 2.8 hemoglobin 11.5 and platelets 159 Lymphocytes 0.5 Sodium 1:30 depression 4.3 chloride 100 bicarb is 24 BUN 35 and creatinine 1.13 Liver enzymes are not elevated. Troponin 1 negative Urinalysis is negative for infection. Cor with 19 PCR detected. 03/25/2021 Patient is in the emergency room. Still having mild confusion. It appears to be weak. No complaints of chest pain or worsening shortness breath. Patient is maintained oxygen 97-95% on room air. No complaints of chest pain. No headache or dizziness or lightheadedness. Patient is a poor historian due to underlying dementia. Patient has been afebrile. Continue on Lovenox and multivitamins. Continued on gentle IV hydration. Encourage oral intake and PTOT consulted. Laboratory data showed WBC 4.0 hemoglobin 10.6 and platelets 147 lymphocytes 0.63 BUN 20 and creatinine 0.9 TSH by 0.504. Urinalysis is negative for infection. 03/26/2021 Patient is currently resting in the bed comfortably. He appears to be awake alert and oriented 3. Patient still feels weak. PT OT is following. Oxygen saturation 98% on room air. Patient is being controlled on Lovenox subcu. Patient has been afebrile. No nausea vomiting or abdominal pain or diarrhea. Continued on multivitamins. Laboratory data reviewed. Patient may need rehab transfer. 03/27/2021 Patient is currently resting in the bed. Awake alert and oriented. PT OT is following. Saturating well on room air. Continue Lovenox subcu and multivitamins. Laboratory data reviewed. Anticipate discharged to rehab versus home with home PT. Subjective: 03/29/2021 This is a pleasant 75 years old male advanced dementia. He shouldn't presents because he was roaming in his apartment while naked. Patient was found to have coated 19 infection without hypoxia, no respiratory symptoms. No fever. No gastroenteritis-like picture. Hemodynamics please and vitals stable. Patient was kept on multiple vitamin supplement Lovenox for DVT and PE prophylaxis Patient is medically stable for discharge, however family cannot take care of him and pending placement, however because of his COVID-19 infection and because of his risk of elopement his placement was not easy. Discussed the case with case supervisor and staff. 03/30/2021 Patient is with advanced dementia,and is confused at baseline patient is clinically the same He is hemodynamically stable He is not eating much Bladder scan to check today and he has only 113 patient is pending placement However his long-term prognosis is very poor Objective - Vital Signs Vital signs: Vital Signs Temp 97.6 F 03/30/21 05:43 Pulse 71 03/30/21 05:43 Resp 16 03/30/21 05:43 BP 133/69 03/30/21 05:43 Pulse Ox 95 03/30/21 05:43 Intake & Output 03/29/21 03/30/21 03/30/21 18:59 06:59 18:59 Weight 62.596 kg Other: # Voids 2 2 - Exam -GENERAL: The patient is alert and oriented x0, pleasant but confused, answer some questions but disoriented to surrounded, not in any acute distress. Well developed, well nourished. HEENT: Pupils are round and equally reacting to light. EOMI. No scleral icterus. No conjunctival pallor. Normocephalic, atraumatic. No pharyngeal erythema. No thyromegaly. CARDIOVASCULAR: S1 and S2 present. No murmurs, rubs, or gallops. PULMONARY: Chest is clear to auscultation, no wheezing or crackles. ABDOMEN: Soft, nontender, nondistended, normoactive bowel sounds. No palpable organomegaly. MUSCULOSKELETAL: No joint swelling or deformity. EXTREMITIES: No cyanosis, clubbing, or pedal edema. NEUROLOGICAL: Gross neurological examination did not reveal any focal deficits. SKIN: No rashes. no petechiae. - Labs CBC & Chem 7: 03/28/21 12:09 03/28/21 12:09 Labs: Microbiology - Last 24 Hours (Table) 03/24/21 09:30 Blood Culture - Final Blood No Growth after 144 hours 03/24/21 09:20 Blood Culture - Final Blood No Growth after 144 hours Assessment and Plan Assessment: Acute covid 19 infection. Asymptomatic. Not hypoxic. Received monoclonal antibodies in the ER. Advanced dementia Neutropenia and normocytic anemia Prominent right hilum and adenopathy. Mass cannot be excluded. Dehydration and volume depletion with elevated BUN level. Improved History of glaucoma Mild to moderate protein calorie malnutrition Plan: This is a pleasant 75 years old male with advanced dementia and Covid Continue with multiple vitamins, vitamin C, vitamin D and zinc. Patient is medically stable for discharge pending placement. flow worker/case supervisor on the case. Labs and medication were reviewed.. Continue same treatment. Continue with symptomatic treatment. Resume home medication. Monitor lytes and vitals. DVT and GI prophylaxis. Further recommendationsas per clinical course of the patient DVT prophylaxis: Subcutaneous Lovenox Prognosis is guarded this time.
[2021-03-30] MEDS: prednisoLONE ACETATE 1% OPHTH DROPS 5 ML BTL LEFT EYE SCH (22:31)
[2021-03-31] MEDS: ZINC SULFATE 220 MG CAP PO SCH (09:02)
[2021-03-31] MEDS: CHOLECALCIFEROL 25 MCG (1000 IU) TABLET PO SCH (09:02)
[2021-03-31] MEDS: ASCORBIC ACID 500 MG TAB PO SCH (09:02)
[2021-03-31] MEDS: DONEPEZIL 10 MG TAB PO SCH (09:02)
[2021-03-31] MEDS: ENOXAPARIN 40 MG/0.4 ML SYRINGE SQ SCH (09:02)
[2021-03-31] MEDS: LATANOPROST 0.005% OPHTH DROPS 2.5 ML BTL LEFT EYE SCH ×2 (09:51→21:08)
[2021-03-31] MEDS: BRIMONIDINE TARTRATE 0.2% DROPS 5 ML BTL LEFT EYE SCH ×2 (09:51→21:07)
--- NOTE | 2021-03-31 14:32 | P.PN ---
Subjective Patient is a 75-year-old male with a known history of dementia was brought to the hospital by EMS due to altered mental status. Patient is a poor historian. Apparently EMS found the patient to be altered at his residence. Patient's neighbor in the morning he was found walking around his apartment complex make it and enable heparin will resume and get him dressed. Fevers later neighbor found him altered significantly and decided to call EMS and patient was brought to the emergency room. Patient states that she has not been feeling well for the past 3-4 days. In the ER blood pressure 141/84 pulse 90 respirations 18 and T-max 11.6 and pul se ox 96% on room air. Chest x-ray showed prominent right hilum and adenopathy or mass is not excluded. CT of the chest might be helpful for further evaluation. No abnormality of the lungs. EKG showed sinus rhythm with short NC interval. Laboratory data showed WBC 2.8 hemoglobin 11.5 and platelets 159 Lymphocytes 0.5 Sodium 1:30 depression 4.3 chloride 100 bicarb is 24 BUN 35 and creatinine 1.13 Liver enzymes are not elevated. Troponin 1 negative Urinalysis is negative for infection. Cor with 19 PCR detected. 03/25/2021 Patient is in the emergency room. Still having mild confusion. It appears to be weak. No complaints of chest pain or worsening shortness breath. Patient is maintained oxygen 97-95% on room air. No complaints of chest pain. No headache or dizziness or lightheadedness. Patient is a poor historian due to underlying dementia. Patient has been afebrile. Continue on Lovenox and multivitamins. Continued on gentle IV hydration. Encourage oral intake and PTOT consulted. Laboratory data showed WBC 4.0 hemoglobin 10.6 and platelets 147 lymphocytes 0.63 BUN 20 and creatinine 0.9 TSH by 0.504. Urinalysis is negative for infection. 03/26/2021 Patient is currently resting in the bed comfortably. He appears to be awake alert and oriented 3. Patient still feels weak. PT OT is following. Oxygen saturation 98% on room air. Patient is being controlled on Lovenox subcu. Patient has been afebrile. No nausea vomiting or abdominal pain or diarrhea. Continued on multivitamins. Laboratory data reviewed. Patient may need rehab transfer. 03/27/2021 Patient is currently resting in the bed. Awake alert and oriented. PT OT is following. Saturating well on room air. Continue Lovenox subcu and multivitamins. Laboratory data reviewed. Anticipate discharged to rehab versus home with home PT. Subjective: 03/29/2021 This is a pleasant 75 years old male advanced dementia. He shouldn't presents because he was roaming in his apartment while naked. Patient was found to have coated 19 infection without hypoxia, no respiratory symptoms. No fever. No gastroenteritis-like picture. Hemodynamics please and vitals stable. Patient was kept on multiple vitamin supplement Lovenox for DVT and PE prophylaxis Patient is medically stable for discharge, however family cannot take care of him and pending placement, however because of his COVID-19 infection and because of his risk of elopement his placement was not easy. Discussed the case with lining caser and staff. 03/30/2021 Patient is with advanced dementia,and is confused at baseline patient is clinically the same He is hemodynamically stable He is not eating much Bladder scan to check today and he has only 113 patient is pending placement However his long-term prognosis is very poor 03/31/2021 patient today was seen standing up in his room, looks calm and answer questions appropriately however he is forgetful and confused and has no insight into his illness or surroundings. However he looks comfortable and not in distress. No pain. Patient is medically stable pending placement Also he has poor appetite, he 50-75% of his dinner last night, patient is encouraged to eat and drink more and he agrees Objective - Vital Signs Vital signs: Vital Signs Temp 98.6 F 03/31/21 09:58 Pulse 97 03/31/21 09:58 Resp 16 03/31/21 09:58 BP 126/64 03/31/21 09:58 Pulse Ox 97 03/31/21 09:58 Intake & Output 03/30/21 03/31/21 03/31/21 18:59 06:59 18:59 Intake Total 240 Balance 240 Intake: Oral 240 Other: Voiding Method Toilet # Voids 2 3 # Bowel Movements 1 - Exam -GENERAL: The patient is alert and oriented x0, pleasant but confused, answer some questions but disoriented to surrounded, not in any acute distress. Well developed, well nourished. HEENT: Pupils are round and equally reacting to light. EOMI. No scleral icterus. No conjunctival pallor. Normocephalic, atraumatic. No pharyngeal erythema. No thyromegaly. CARDIOVASCULAR: S1 and S2 present. No murmurs, rubs, or gallops. PULMONARY: Chest is clear to auscultation, no wheezing or crackles. ABDOMEN: Soft, nontender, nondistended, normoactive bowel sounds. No palpable organomegaly. MUSCULOSKELETAL: No joint swelling or deformity. EXTREMITIES: No cyanosis, clubbing, or pedal edema. NEUROLOGICAL: Gross neurological examination did not reveal any focal deficits. SKIN: No rashes. no petechiae. - Labs CBC & Chem 7: 03/28/21 12:09 03/28/21 12:09 Labs: Microbiology - Last 24 Hours (Table) 03/24/21 09:30 Blood Culture - Final Blood No Growth after 144 hours 03/24/21 09:20 Blood Culture - Final Blood No Growth after 144 hours Assessment and Plan Assessment: Acute covid 19 infection. Asymptomatic. Not hypoxic. Received monoclonal antibodies in the ER. Advanced dementia Neutropenia and normocytic anemia Prominent right hilum and adenopathy. Mass cannot be excluded. Dehydration and volume depletion with elevated BUN level. Improved History of glaucoma Mild to moderate protein calorie malnutrition Plan: This is a pleasant 75 years old male with advanced dementia and Covid Continue with multiple vitamins, vitamin C, vitamin D and zinc. Patient is medically stable for discharge pending placement. dietary worker/lining caser on the case. Labs and medication were reviewed.. Continue same treatment. Continue with symptomatic treatment. Resume home medication. Monitor lytes and vitals. DVT and GI prophylaxis. Further recommendationsas per clinical course of the patient DVT prophylaxis: Subcutaneous Lovenox Prognosis is guarded this time.
[2021-03-31 15:43] LABS: Basophils % (A) 1 %; Eosinophils # (A) 0.1 k/uL (0-0.7); Eosinophils % (A) 1 %; HCT 37.4 % (39.0-53.0); HGB 12.2 gm/dL (13.0-17.5); Lymphocytes % (A) 17 %; MCH 30.3 pg (25.0-35.0); MCHC 32.7 g/dL (31.0-37.0); MCV 92.4 fL (80.0-100.0); Monocytes # (A) 0.4 k/uL (0-1.0); Monocytes % (A) 6 %; Neutrophils # (A) 4.3 k/uL (1.3-7.7); Neutrophils % (A) 71 %; Platelet Count 410 k/uL (150-450); RBC 4.05 m/uL (4.30-5.90); RDW 13.3 % (11.5-15.5)
[2021-03-31 16:13] LABS: African American GFR (CKD) >90 (>60 ml/min/1.73 sqM); Anion Gap 9 mmol/L; Blood Urea Nitrogen 18 mg/dL (9-20); Calcium 8.8 mg/dL (8.4-10.2); Carbon Dioxide 27 mmol/L (22-30); Chloride 103 mmol/L (98-107); Glucose 95 mg/dL (74-99); Magnesium 1.8 mg/dL (1.6-2.3); Non-African American GFR(CKD) 89 (>60 ml/min/1.73 sqM); Potassium 4.4 mmol/L (3.5-5.1); Sodium 139 mmol/L (137-145)
[2021-03-31] MEDS: prednisoLONE ACETATE 1% OPHTH DROPS 5 ML BTL LEFT EYE SCH (21:08)
[2021-04-01] MEDS: ENOXAPARIN 40 MG/0.4 ML SYRINGE SQ SCH ×2 (09:30→09:37)
[2021-04-01] MEDS: CHOLECALCIFEROL 25 MCG (1000 IU) TABLET PO SCH (09:30)
[2021-04-01] MEDS: ZINC SULFATE 220 MG CAP PO SCH (09:30)
[2021-04-01] MEDS: DONEPEZIL 10 MG TAB PO SCH (09:30)
[2021-04-01] MEDS: ASCORBIC ACID 500 MG TAB PO SCH (09:30)
[2021-04-01] MEDS: BRIMONIDINE TARTRATE 0.2% DROPS 5 ML BTL LEFT EYE SCH ×2 (09:31→21:00)
[2021-04-01] MEDS: LATANOPROST 0.005% OPHTH DROPS 2.5 ML BTL LEFT EYE SCH ×2 (09:33→21:00)
--- NOTE | 2021-04-01 20:02 | P.PN ---
Subjective Patient is a 75-year-old male with a known history of dementia was brought to the hospital by EMS due to altered mental status. Patient is a poor historian. Apparently EMS found the patient to be altered at his residence. Patient's neighbor in the morning he was found walking around his apartment complex make it and enable heparin will resume and get him dressed. Fevers later neighbor found him altered significantly and decided to call EMS and patient was brought to the emergency room. Patient states that she has not been feeling well for the past 3-4 days. In the ER blood pressure 141/84 pulse 90 respirations 18 and T-max 11.6 and pul se ox 96% on room air. Chest x-ray showed prominent right hilum and adenopathy or mass is not excluded. CT of the chest might be helpful for further evaluation. No abnormality of the lungs. EKG showed sinus rhythm with short [place] interval. Laboratory data showed WBC 2.8 hemoglobin 11.5 and platelets 159 Lymphocytes 0.5 Sodium 1:30 depression 4.3 chloride 100 bicarb is 24 BUN 35 and creatinine 1.13 Liver enzymes are not elevated. Troponin 1 negative Urinalysis is negative for infection. Cor with 19 PCR detected. 03/25/2021 Patient is in the emergency room. Still having mild confusion. It appears to be weak. No complaints of chest pain or worsening shortness breath. Patient is maintained oxygen 97-95% on room air. No complaints of chest pain. No headache or dizziness or lightheadedness. Patient is a poor historian due to underlying dementia. Patient has been afebrile. Continue on Lovenox and multivitamins. Continued on gentle IV hydration. Encourage oral intake and PTOT consulted. Laboratory data showed WBC 4.0 hemoglobin 10.6 and platelets 147 lymphocytes 0.63 BUN 20 and creatinine 0.9 TSH by 0.504. Urinalysis is negative for infection. 03/26/2021 Patient is currently resting in the bed comfortably. He appears to be awake alert and oriented 3. Patient still feels weak. PT OT is following. Oxygen saturation 98% on room air. Patient is being controlled on Lovenox subcu. Patient has been afebrile. No nausea vomiting or abdominal pain or diarrhea. Continued on multivitamins. Laboratory data reviewed. Patient may need rehab transfer. 03/27/2021 Patient is currently resting in the bed. Awake alert and oriented. PT OT is following. Saturating well on room air. Continue Lovenox subcu and multivitamins. Laboratory data reviewed. Anticipate discharged to rehab versus home with home PT. Subjective: 03/29/2021 This is a pleasant 75 years old male advanced dementia. He shouldn't presents because he was roaming in his apartment while naked. Patient was found to have coated 19 infection without hypoxia, no respiratory symptoms. No fever. No gastroenteritis-like picture. Hemodynamics please and vitals stable. Patient was kept on multiple vitamin supplement Lovenox for DVT and PE prophylaxis Patient is medically stable for discharge, however family cannot take care of him and pending placement, however because of his COVID-19 infection and because of his risk of elopement his placement was not easy. Discussed the case with pillowcase maker and staff. 03/30/2021 Patient is with advanced dementia,and is confused at baseline patient is clinically the same He is hemodynamically stable He is not eating much Bladder scan to check today and he has only 113 patient is pending placement However his long-term prognosis is very poor 03/31/2021 patient today was seen standing up in his room, looks calm and answer questions appropriately however he is forgetful and confused and has no insight into his illness or surroundings. However he looks comfortable and not in distress. No pain. Patient is medically stable pending placement Also he has poor appetite, he 50-75% of his dinner last night, patient is encouraged to eat and drink more and he agrees 04/01/2021 He is a still calm, and pleasant but confused. His not eating much, its 25% of his meal despite encouragement and discussing with the staff to help him. Consult nutrition for tomorrow Medically stable for discharge pending placement As per The social services manager piotr , patient may be accepted for rehab on 04/04 long-term prognosis is poor, patient may be eligible for palliative consult as an outpatient Objective - Vital Signs Vital signs: Vital Signs Temp 98.3 F 04/01/21 09:45 Pulse 78 04/01/21 09:45 Resp 18 04/01/21 09:45 BP 96/60 04/01/21 09:45 Pulse Ox 97 04/01/21 09:45 Intake & Output 03/31/21 04/01/21 04/01/21 18:59 06:59 18:59 Intake Total 540 100 Balance 540 100 Intake: Oral 540 100 Other: Voiding Method Toilet # Voids 3 1 # Bowel Movements 1 - Exam -GENERAL: The patient is alert and oriented x0, pleasant but confused, answer some questions but disoriented to surrounded, not in any acute distress. Well developed, well nourished. HEENT: Pupils are round and equally reacting to light. EOMI. No scleral icterus. No conjunctival pallor. Normocephalic, atraumatic. No pharyngeal erythema. No thyromegaly. CARDIOVASCULAR: S1 and S2 present. No murmurs, rubs, or gallops. PULMONARY: Chest is clear to auscultation, no wheezing or crackles. ABDOMEN: Soft, nontender, nondistended, normoactive bowel sounds. No palpable organomegaly. MUSCULOSKELETAL: No joint swelling or deformity. EXTREMITIES: No cyanosis, clubbing, or pedal edema. NEUROLOGICAL: Gross neurological examination did not reveal any focal deficits. SKIN: No rashes. no petechiae. - Labs CBC & Chem 7: 03/31/21 15:23 03/31/21 15:23 Labs: Abnormal Lab Results - Last 24 Hours (Table) 03/31/21 Range/Units 15:23 RBC 4.05 L (4.30-5.90) m/uL Hgb 12.2 L (13.0-17.5) gm/dL Hct 37.4 L (39.0-53.0) % Assessment and Plan Assessment: Acute covid 19 infection. Asymptomatic. Not hypoxic. Received monoclonal antibodies in the ER. Advanced dementia Neutropenia and normocytic anemia Prominent right hilum and adenopathy. Mass cannot be excluded. Dehydration and volume depletion with elevated BUN level. Improved History of glaucoma Mild to moderate protein calorie malnutrition Plan: This is a pleasant 75 years old male with advanced dementia and Covid Continue with multiple vitamins, vitamin C, vitamin D and zinc. Patient is medically stable for discharge pending placement. field crop ii farmworker/pillowcase maker on the case. Nutrition consult Recommend palliative consult as an outpatient Labs and medication were reviewed.. Continue same treatment. Continue with symptomatic treatment. Resume home medication. Monitor lytes and vitals. DVT and GI prophylaxis. Further recommendations as per clinical course of the patient DVT prophylaxis: Subcutaneous Lovenox Prognosis is guarded this time.
[2021-04-01] MEDS: prednisoLONE ACETATE 1% OPHTH DROPS 5 ML BTL LEFT EYE SCH (21:00)
[2021-04-02] MEDS: CHOLECALCIFEROL 25 MCG (1000 IU) TABLET PO SCH (08:12)
[2021-04-02] MEDS: ENOXAPARIN 40 MG/0.4 ML SYRINGE SQ SCH (08:12)
[2021-04-02] MEDS: DONEPEZIL 10 MG TAB PO SCH (08:12)
[2021-04-02] MEDS: ASCORBIC ACID 500 MG TAB PO SCH (08:12)
[2021-04-02] MEDS: ZINC SULFATE 220 MG CAP PO SCH (08:12)
[2021-04-02] MEDS: BRIMONIDINE TARTRATE 0.2% DROPS 5 ML BTL LEFT EYE SCH ×2 (08:13→19:51)
[2021-04-02] MEDS: LATANOPROST 0.005% OPHTH DROPS 2.5 ML BTL LEFT EYE SCH ×2 (08:13→20:40)
[2021-04-02] MEDS: MEGESTROL 400 MG/10 ML CUP PO SCH (11:41)
--- NOTE | 2021-04-02 12:28 | CDI ---
Documentation Clarification Form Date: 04/02/2021 11:59:00 AM From: Chely Easton RN CCDS Admit Date: 03/24/2021 11:58:00 AM Patient Name: Garrick Cárdenas Visit Number: [id number] Discharge Date: ATTENTION: The Clinical Documentation Specialists (CDI) and [facility] Coding Staff appreciate your assistance in clarifying documentation. Please respond to the clarification below the line at the bottom and electronically sign. The CDI & [facility] Coding staff will review the response and follow-up if needed. Please note: Queries are made part of the Legal Health Record. If you have any questions, please contact the author of this message via ITS. Dr. Jesu Ruvalcaba Mild to moderate protein calorie malnutrition is documented in the 03/24 through 04/01, Medicine Notes. Based on this information and the findings below, please provide clarification on the severity that is clinically appropriate for this patient. History/Risk Factors: 75-year-old male presents to the ED via EMS due to altered mental status. Medical history: Dementia. 04/01, H&P Clinical Indicators: RD Consult Assessment:03/29 Medical History: Dementia, patient admitted for COVID and AMS. Current BMI: 19.2: 5ft, 11inch Nutritional Intake: Fair, 25-50%, 38% meals, Regular diet. Nutrition related meds Vit D, Vit C , Zinc. Estimated in Kcal needs [id number] Kcal Estimated in Protein needs Estimated protein needs 78grams/day Estimated Fluid needs 1ml/Kcal Estimated 1954 2345. Body Mass Clarification: Underweight. Nutrition Diagnosis: Inadequate oral intake. Treatment: Dietary Consult: See above Supplements: Ensure compact and magic cup TID Please clarify the severity of Malnutrition . [ ] Mild Protein-Calorie Malnutrition [ ] Moderate Protein-Calorie Malnutrition [ ] Other condition, please specify [ ] Unable to Determine (Template Last Revised: June 2020) mild to Moderate Protein-Calorie Malnutrition MTDD
--- NOTE | 2021-04-02 19:36 | P.PN ---
Subjective Patient is a 75-year-old male with a known history of dementia was brought to the hospital by EMS due to altered mental status. Patient is a poor historian. Apparently EMS found the patient to be altered at his residence. Patient's neighbor in the morning he was found walking around his apartment complex make it and enable heparin will resume and get him dressed. Fevers later neighbor found him altered significantly and decided to call EMS and patient was brought to the emergency room. Patient states that she has not been feeling well for the past 3-4 days. In the ER blood pressure 141/84 pulse 90 respirations 18 and T-max 11.6 and pul se ox 96% on room air. Chest x-ray showed prominent right hilum and adenopathy or mass is not excluded. CT of the chest might be helpful for further evaluation. No abnormality of the lungs. EKG showed sinus rhythm with short [place] interval. Laboratory data showed WBC 2.8 hemoglobin 11.5 and platelets 159 Lymphocytes 0.5 Sodium 1:30 depression 4.3 chloride 100 bicarb is 24 BUN 35 and creatinine 1.13 Liver enzymes are not elevated. Troponin 1 negative Urinalysis is negative for infection. Cor with 19 PCR detected. 03/25/2021 Patient is in the emergency room. Still having mild confusion. It appears to be weak. No complaints of chest pain or worsening shortness breath. Patient is maintained oxygen 97-95% on room air. No complaints of chest pain. No headache or dizziness or lightheadedness. Patient is a poor historian due to underlying dementia. Patient has been afebrile. Continue on Lovenox and multivitamins. Continued on gentle IV hydration. Encourage oral intake and PTOT consulted. Laboratory data showed WBC 4.0 hemoglobin 10.6 and platelets 147 lymphocytes 0.63 BUN 20 and creatinine 0.9 TSH by 0.504. Urinalysis is negative for infection. 03/26/2021 Patient is currently resting in the bed comfortably. He appears to be awake alert and oriented 3. Patient still feels weak. PT OT is following. Oxygen saturation 98% on room air. Patient is being controlled on Lovenox subcu. Patient has been afebrile. No nausea vomiting or abdominal pain or diarrhea. Continued on multivitamins. Laboratory data reviewed. Patient may need rehab transfer. 03/27/2021 Patient is currently resting in the bed. Awake alert and oriented. PT OT is following. Saturating well on room air. Continue Lovenox subcu and multivitamins. Laboratory data reviewed. Anticipate discharged to rehab versus home with home PT. Subjective: 03/29/2021 This is a pleasant 75 years old male advanced dementia. He shouldn't presents because he was roaming in his apartment while naked. Patient was found to have coated 19 infection without hypoxia, no respiratory symptoms. No fever. No gastroenteritis-like picture. Hemodynamics please and vitals stable. Patient was kept on multiple vitamin supplement Lovenox for DVT and PE prophylaxis Patient is medically stable for discharge, however family cannot take care of him and pending placement, however because of his COVID-19 infection and because of his risk of elopement his placement was not easy. Discussed the case with field nurse case manager and staff. 03/30/2021 Patient is with advanced dementia,and is confused at baseline patient is clinically the same He is hemodynamically stable He is not eating much Bladder scan to check today and he has only 113 patient is pending placement However his long-term prognosis is very poor 03/31/2021 patient today was seen standing up in his room, looks calm and answer questions appropriately however he is forgetful and confused and has no insight into his illness or surroundings. However he looks comfortable and not in distress. No pain. Patient is medically stable pending placement Also he has poor appetite, he 50-75% of his dinner last night, patient is encouraged to eat and drink more and he agrees 04/01/2021 He is a still calm, and pleasant but confused. His not eating much, its 25% of his meal despite encouragement and discussing with the staff to help him. Consult nutrition for tomorrow Medically stable for discharge pending placement As per The health care social worker piotr , patient may be accepted for rehab on 04/04 long-term prognosis is poor, patient may be eligible for palliative consult as an outpatient 04/02/2021 Patient is clinically same, pending placement. I discussed the case with Jose Alberto the health care social worker, is likely he will be discharged this and 2 more d ays. Patient with poor appetite but gradually improving as today 36% of his meal. Added megace to encourage appetite Objective - Vital Signs Vital signs: Vital Signs Temp 97.9 F 04/02/21 10:00 Pulse 61 04/02/21 10:00 Resp 16 04/02/21 10:00 BP 124/79 04/02/21 10:00 Pulse Ox 98 04/02/21 10:00 Intake & Output 04/01/21 04/02/21 04/02/21 18:59 06:59 18:59 Other: Voiding Method Toilet Toilet # Voids 2 - Exam -GENERAL: The patient is alert and oriented x0, pleasant but confused, answer some questions but disoriented to surrounded, not in any acute distress. Well developed, well nourished. HEENT: Pupils are round and equally reacting to light. EOMI. No scleral icterus. No conjunctival pallor. Normocephalic, atraumatic. No pharyngeal erythema. No t hyromegaly. CARDIOVASCULAR: S1 and S2 present. No murmurs, rubs, or gallops. PULMONARY: Chest is clear to auscultation, no wheezing or crackles. ABDOMEN: Soft, nontender, nondistended, normoactive bowel sounds. No palpable organomegaly. MUSCULOSKELETAL: No joint swelling or deformity. EXTREMITIES: No cyanosis, clubbing, or pedal edema. NEUROLOGICAL: Gross neurological examination did not reveal any focal deficits. SKIN: No rashes. no petechiae. - Labs CBC & Chem 7: 03/31/21 15:23 03/31/21 15:23 Assessment and Plan Assessment: Acute covid 19 infection. Asymptomatic. Not hypoxic. Received monoclonal antibodies in the ER. Advanced dementia Neutropenia and normocytic anemia Prominent right hilum and adenopathy. Mass cannot be excluded. Dehydration and volume depletion with elevated BUN level. Improved History of glaucoma Mild to moderate protein calorie malnutrition Plan: This is a pleasant 75 years old male with advanced dementia and Covid Continue with multiple vitamins, vitamin C, vitamin D and zinc. Patient is medically stable for discharge pending placement. blade worker/field nurse case manager on the case. Nutrition consult Recommend palliative consult as an outpatient Labs and medication were reviewed.. Continue same treatment. Continue with symptomatic treatment. Resume home medication. Monitor lytes and vitals. DVT and GI prophylaxis. Further recommendations as per clinical course of the patient DVT prophylaxis: Subcutaneous Lovenox Prognosis is guarded this time.
[2021-04-02] MEDS: prednisoLONE ACETATE 1% OPHTH DROPS 5 ML BTL LEFT EYE SCH (19:48)
[2021-04-03] MEDS: DONEPEZIL 10 MG TAB PO SCH (08:03)
[2021-04-03] MEDS: MEGESTROL 400 MG/10 ML CUP PO SCH (08:03)
[2021-04-03] MEDS: ZINC SULFATE 220 MG CAP PO SCH (08:03)
[2021-04-03] MEDS: ASCORBIC ACID 500 MG TAB PO SCH (08:03)
[2021-04-03] MEDS: ENOXAPARIN 40 MG/0.4 ML SYRINGE SQ SCH (08:03)
[2021-04-03] MEDS: CHOLECALCIFEROL 25 MCG (1000 IU) TABLET PO SCH (08:03)
[2021-04-03] MEDS: LATANOPROST 0.005% OPHTH DROPS 2.5 ML BTL LEFT EYE SCH ×2 (08:04→21:40)
[2021-04-03] MEDS: BRIMONIDINE TARTRATE 0.2% DROPS 5 ML BTL LEFT EYE SCH ×2 (08:04→21:40)
--- NOTE | 2021-04-03 12:49 | P.PN ---
Subjective Patient is a 75-year-old male with a known history of dementia was brought to the hospital by EMS due to altered mental status. Patient is a poor historian. Apparently EMS found the patient to be altered at his residence. Patient's neighbor in the morning he was found walking around his apartment complex make it and enable heparin will resume and get him dressed. Fevers later neighbor found him altered significantly and decided to call EMS and patient was brought to the emergency room. Patient states that she has not been feeling well for the past 3-4 days. In the ER blood pressure 141/84 pulse 90 respirations 18 and T-max 11.6 and pul se ox 96% on room air. Chest x-ray showed prominent right hilum and adenopathy or mass is not excluded. CT of the chest might be helpful for further evaluation. No abnormality of the lungs. EKG showed sinus rhythm with short [place] interval. Laboratory data showed WBC 2.8 hemoglobin 11.5 and platelets 159 Lymphocytes 0.5 Sodium 1:30 depression 4.3 chloride 100 bicarb is 24 BUN 35 and creatinine 1.13 Liver enzymes are not elevated. Troponin 1 negative Urinalysis is negative for infection. Cor with 19 PCR detected. 03/25/2021 Patient is in the emergency room. Still having mild confusion. It appears to be weak. No complaints of chest pain or worsening shortness breath. Patient is maintained oxygen 97-95% on room air. No complaints of chest pain. No headache or dizziness or lightheadedness. Patient is a poor historian due to underlying dementia. Patient has been afebrile. Continue on Lovenox and multivitamins. Continued on gentle IV hydration. Encourage oral intake and PTOT consulted. Laboratory data showed WBC 4.0 hemoglobin 10.6 and platelets 147 lymphocytes 0.63 BUN 20 and creatinine 0.9 TSH by 0.504. Urinalysis is negative for infection. 03/26/2021 Patient is currently resting in the bed comfortably. He appears to be awake alert and oriented 3. Patient still feels weak. PT OT is following. Oxygen saturation 98% on room air. Patient is being controlled on Lovenox subcu. Patient has been afebrile. No nausea vomiting or abdominal pain or diarrhea. Continued on multivitamins. Laboratory data reviewed. Patient may need rehab transfer. 03/27/2021 Patient is currently resting in the bed. Awake alert and oriented. PT OT is following. Saturating well on room air. Continue Lovenox subcu and multivitamins. Laboratory data reviewed. Anticipate discharged to rehab versus home with home PT. Subjective: 03/29/2021 This is a pleasant 75 years old male advanced dementia. He shouldn't presents because he was roaming in his apartment while naked. Patient was found to have coated 19 infection without hypoxia, no respiratory symptoms. No fever. No gastroenteritis-like picture. Hemodynamics please and vitals stable. Patient was kept on multiple vitamin supplement Lovenox for DVT and PE prophylaxis Patient is medically stable for discharge, however family cannot take care of him and pending placement, however because of his COVID-19 infection and because of his risk of elopement his placement was not easy. Discussed the case with disease case manager and staff. 03/30/2021 Patient is with advanced dementia,and is confused at baseline patient is clinically the same He is hemodynamically stable He is not eating much Bladder scan to check today and he has only 113 patient is pending placement However his long-term prognosis is very poor 03/31/2021 patient today was seen standing up in his room, looks calm and answer questions appropriately however he is forgetful and confused and has no insight into his illness or surroundings. However he looks comfortable and not in distress. No pain. Patient is medically stable pending placement Also he has poor appetite, he 50-75% of his dinner last night, patient is encouraged to eat and drink more and he agrees 04/01/2021 He is a still calm, and pleasant but confused. His not eating much, its 25% of his meal despite encouragement and discussing with the staff to help him. Consult nutrition for tomorrow Medically stable for discharge pending placement As per The social science professor piotr , patient may be accepted for rehab on 04/04 long-term prognosis is poor, patient may be eligible for palliative consult as an outpatient 04/02/2021 Patient is clinically same, pending placement. I discussed the case with Jose Alberto the social science professor, is likely he will be discharged this and 2 more d ays. Patient with poor appetite but gradually improving as today 36% of his meal. Added megace to encourage appetite 04/03/2021 Shouldn't today is more lethargic and less interactive than the last couple days Also he has low-grade temperature of 100. We going to repeat labs CBC, BMP as well as urinalysis and chest x-ray. Also fractures disease consult Patient apparently has not eaten today because of above Objective - Vital Signs Vital signs: Vital Signs Temp 98.6 F 04/03/21 10:20 Pulse 77 04/03/21 10:20 Resp 17 04/03/21 10:20 BP 109/66 04/03/21 10:20 Pulse Ox 94 L 04/03/21 10:20 Intake & Output 04/02/21 04/03/21 04/03/21 18:59 06:59 18:59 Intake Total 400 Balance 400 Weight 62.596 kg Intake: Oral 400 Other: Voiding Method Toilet Toilet Diaper - Exam -GENERAL: The patient is alert and oriented x0, pleasant but confused, answer some questions but disoriented to surrounded, not in any acute distress. Well developed, well nourished. HEENT: Pupils are round and equally reacting to light. EOMI. No scleral icterus. No conjunctival pallor. Normocephalic, atraumatic. No pharyngeal erythema. No thyromegaly. CARDIOVASCULAR: S1 and S2 present. No murmurs, rubs, or gallops. PULMONARY: Chest is clear to auscultation, no wheezing or crackles. ABDOMEN: Soft, nontender, nondistended, normoactive bowel sounds. No palpable organomegaly. MUSCULOSKELETAL: No joint swelling or deformity. EXTREMITIES: No cyanosis, clubbing, or pedal edema. NEUROLOGICAL: Gross neurological examination did not reveal any focal deficits. SKIN: No rashes. no petechiae. - Labs CBC & Chem 7: 03/31/21 15:23 03/31/21 15:23 Assessment and Plan Assessment: Fever Acute covid 19 infection. Asymptomatic. Not hypoxic. Received monoclonal antibodies in the ER. Advanced dementia Neutropenia and normocytic anemia Prominent right hilum and adenopathy. Mass cannot be excluded. Dehydration and volume depletion with elevated BUN level. Improved History of glaucoma Mild to moderate protein calorie malnutrition Plan: This is a pleasant 75 years old male with advanced dementia and Covid Continue with multiple vitamins, vitamin C, vitamin D and zinc. Patient is medically stable for discharge pending placement. cargo worker/disease case manager on the case. Nutrition consult Check chest x-ray, urinalysis and laps Recommend palliative consult as an outpatient Labs and medication were reviewed.. Continue same treatment. Continue with symptomatic treatment. Resume home medication. Monitor lytes and vitals. DVT and GI prophylaxis. Further recommendations as per clinical course of the patient DVT prophylaxis: Subcutaneous Lovenox Prognosis is guarded this time.
[2021-04-03 13:14] LABS: Basophils # (A) 0.1 k/uL (0-0.2); Basophils % (A) 1 %; Eosinophils # (A) 0.1 k/uL (0-0.7); Eosinophils % (A) 1 %; Lymphocytes # (A) 1.8 k/uL (1.0-4.8); Lymphocytes % (A) 21 %; MCH 30.1 pg (25.0-35.0); MCHC 33.3 g/dL (31.0-37.0); MCV 90.4 fL (80.0-100.0); Mean Platelet Volume 7.6; Monocytes # (A) 0.4 k/uL (0-1.0); Monocytes % (A) 5 %; Neutrophils # (A) 5.9 k/uL (1.3-7.7); Neutrophils % (A) 69 %; Platelet Count 436 k/uL (150-450); RBC 3.98 m/uL (4.30-5.90); RDW 12.7 % (11.5-15.5); WBC 8.6 k/uL (3.8-10.6)
[2021-04-03 13:31] LABS: African American GFR (CKD) >90 (>60 ml/min/1.73 sqM); Anion Gap 11 mmol/L; Blood Urea Nitrogen 23 mg/dL (9-20); Calcium 9.2 mg/dL (8.4-10.2); Carbon Dioxide 25 mmol/L (22-30); Chloride 102 mmol/L (98-107); Glucose 89 mg/dL (74-99); Non-African American GFR(CKD) 82 (>60 ml/min/1.73 sqM); Sodium 138 mmol/L (137-145)
--- NOTE | 2021-04-03 13:41 | XR ---
EXAMINATION TYPE: XR chest 1V DATE OF EXAM: 04/03/2021 CLINICAL HISTORY: Fever and covid. TECHNIQUE: Single AP portable upright view of the chest is obtained. COMPARISON: Chest x-ray from 10 days earlier FINDINGS: Some improved aeration right lung base. Some increasing opacity lateral left lower lung an d faint increased opacity peripheral right midlung. No pleural effusion or pneumothorax. Cardiac silh ouette size upper limits of normal currently. Osseous structures are demineralized. IMPRESSION: Improved aeration in the lung bases on current study. New small areas of faint peripheral increased opacities mid to lower lungs suspicious for developing acute infectious process.
[2021-04-03] MEDS ORDERED: PIPERACILLIN-TAZOBACTAM 3.375 GM in SODIUM CHLORIDE 0.9% 100 ML IVPB SCH (19:00)
[2021-04-04 00:15] LABS: Appearance,Urine Clear (Clear); Bilirubin,Urine Negative (Negative); Blood,Urine Negative (Negative); Color,Urine Yellow; Glucose,Urine (UA) Negative (Negative); Hyaline Casts,Urine 1 /lpf (0-2); Ketones,Urine Negative (Negative); Leukocyte Esterase,Urine Trace (Negative); Mucus,Urine Rare /hpf; Nitrite,Urine Negative (Negative); PH, Urine 5.5 (5.0-8.0); Protein,Urine Trace (Negative); RBC,Urine 1 /hpf (0-5); Specific Gravity,Urine 1.023 (1.001-1.035); WBC,Urine 7 /hpf (0-5)
[2021-04-04] MEDS: AMOXIC-POT CLAV 875-125MG 1 EACH TAB PO SCH ×2 (00:30→08:43)
[2021-04-04] MEDS: ASCORBIC ACID 500 MG TAB PO SCH (08:43)
[2021-04-04] MEDS: DONEPEZIL 10 MG TAB PO SCH (08:43)
[2021-04-04] MEDS: CHOLECALCIFEROL 25 MCG (1000 IU) TABLET PO SCH (08:43)
[2021-04-04] MEDS: ZINC SULFATE 220 MG CAP PO SCH (08:43)
[2021-04-04] MEDS: ENOXAPARIN 40 MG/0.4 ML SYRINGE SQ SCH (08:44)
[2021-04-04] MEDS: MEGESTROL 400 MG/10 ML CUP PO SCH (08:44)
[2021-04-04] MEDS: BRIMONIDINE TARTRATE 0.2% DROPS 5 ML BTL LEFT EYE SCH ×2 (08:45→20:56)
[2021-04-04] MEDS: LATANOPROST 0.005% OPHTH DROPS 2.5 ML BTL LEFT EYE SCH ×2 (08:45→20:57)
[2021-04-04 09:05] LABS: Basophils # (A) 0.05 X 10*3/uL (0.00-0.10); Basophils % (A) 0.6 %; Eosinophils # (A) 0.09 X 10*3/uL (0.04-0.35); Eosinophils % (A) 1.1 %; HCT 35.3 % (39.6-50.0); HGB 11.6 g/dL (13.0-17.0); Lymphocytes # (A) 1.64 X 10*3/uL (0.90-5.00); Lymphocytes % (A) 19.8 %; MCH 29.3 pg (27.0-32.0); MCHC 32.9 g/dL (32.0-37.0); MCV 89.1 fL (80.0-97.0); Mean Platelet Volume 9.9 fL (9.5-12.2); Monocytes # (A) 0.63 X 10*3/uL (0.20-1.00); Monocytes % (A) 7.6 %; Neutrophils # (A) 5.81 X 10*3/uL (1.80-7.70); Neutrophils % (A) 70.3 %; Platelet Count 422 X 10*3/uL (140-440); RBC 3.96 X 10*6/uL (4.40-5.60); RDW 12.8 % (11.5-14.5); WBC 8.27 X 10*3/uL (4.50-10.00)
--- NOTE | 2021-04-04 09:19 | P.CONS ---
History of Present Illness - Reason for Consult Consult date: 04/03/21 Fever Requesting physician: Jesu E Sheet - Chief Complaint weakness x few days - History of Present Illness History of present illness : Patient is 75-year-old male presented to the hospital about 10 days ago for evaluation of mental status patient was noticed to be altered at his residence under more the patient was found walking around his apartment complex naked and a neighbor helped him to his room and have him dressed up patient on presentation to the hospital did have a fever of 101.6 degrees for the right patient fever subsequently resolved and did have a low-grade fever 100.4 this morning patient has been able to maintain his O2 sats without need for supplemental oxygen during this hospital stay patient did patient did have a mild leukopenia as well as lymphopenia on admission that has subsequently resolved and the patient did have a normal white count as of this morning with no left shift kidney function has been normal did have a negative UA Covid test was positive influenza was negative patient did have a chest x-ray on admission prominent right helium and adenopathy no abnormality of the lungs repeat x-ray done this afternoon improved aeration in the lung bases on current study new small areas of faint peripheral increase opacities concern for developing acute infectious process infectious disease was consulted because of his low-grade fever this morning, patient denies having any chest pain or shortness of breath no cough no nausea no midline abdominal pain no diarrhea Review of system: CONSTITUTIONAL: Positive for weakness along with the fever. EYES: No complaint. ENT: No complaint. RESPIRATORY: As per history of present illness CARDIOVASCULAR: No complaint. GENITOURINARY: No complaint. GASTROINTESTINAL: No complaint. MUSCULOSKELETAL: No complaint. INTEGUMENTARY: No complaint. PSYCHOLOGIC: No complaint. ENDOCRINE: No complaint. NEUROLOGIC: As per history of present illness Past medical history : Reviewed, documented below Past surgical history : Reviewed, documented below Social history: Reviewed, documented below Medications: Reviewed, as documented below EXAMINATION: Vital sigans= Reviewed and documented below GENERAL DESCRIPTION: Elderly male lying in bed, no distress. No tachypnea or accessory muscle of respiration use. HEENT: Shows Pallor , no scleral icterus. Oral mucous membrane is dry. NECK: Trachea central, no thyromegaly. LUNGS: Unlabored breathing. Decrease intensity of breath sounds. No wheeze or crackle. HEART: S1, S2, regular rate and rhythm. ABDOMEN: Soft, no tenderness , guarding or rigidity EXTREMITIES: No edema of feet. SKIN: No rash, no masses palpable. NEUROLOGICAL: The patient is awake, alert, oriented x2, mood and affect normal. LABS AND RADIOLOGY: Reviewed results see below Assessment : Patient with a low-grade fever 100.6 this morning in this patient currently in the hospital for almost 10 days with initial admission for a Covid 19 infection in this patient currently does not look toxic did have a normal UA procalcitonin is normal chest x-ray more likely atelectasis patient is clinically behaving as a bacterial pneumonia his abdomen is soft on clinical examination and evidence of any cellulitis Plan: 1-incentive spirometry 2-no need for systemic antibiotic therapy 3-continue the current supportive treatment for his underlying COVID-19 infectio n We will follow on clinical condition and cultures to further adjust medication if needed Thank you for this consultation we will follow the patient along with you 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-retinal problem with surgery History of Any Multi-Drug Resistant Organisms: None Reported Past Surgical History: Tonsillectomy Additional Past Surgical History / Comment(s): R eye surgery for a retinal problem Past Anesthesia/Blood Transfusion Reactions: No Reported Reaction Smoking Status: Former smoker - Past Family History Mother Family Medical History: CVA/TIA Medications and Allergies Home Medications Medication Instructions Recorded Confirmed Type Brimonidine Tartrate [Alphagan P 1 drops LEFT EYE BID 03/24/21 03/24/21 History 0.2% Ophth Soln] Donepezil HCl [Aricept] 10 mg PO DAILY 03/24/21 03/24/21 History Ibuprofen [Motrin] 400 mg PO Q6HR PRN 03/24/21 03/24/21 History Latanoprost [Xalatan 0.005%] 1 drop LEFT EYE BID 03/24/21 03/24/21 History Vitamin C Plus 1 tab PO DAILY 03/24/21 03/24/21 History Zinc 50 mg PO DAILY 03/24/21 03/24/21 History prednisoLONE ACETATE 1% OPHTH 1 drops LEFT EYE HS 03/24/21 03/24/21 History [Pred Forte 1%] Ascorbic Acid [Vitamin C] 500 mg PO DAILY #30 tab 03/26/21 Rx Cholecalciferol [Vitamin D3 (25 25 mcg PO DAILY #30 tablet 03/26/21 Rx Mcg = 1000 Iu)] Allergies Allergy/AdvReac Type Severity Reaction Status Date / Time No Known Allergies Allergy Verified 03/24/21 08:59 Physical Exam Vitals: Vital Signs Temp Pulse Resp BP Pulse Ox 04/03/21 14:00 98.3 F 72 18 113/64 97 04/03/21 10:20 98.6 F 77 17 109/66 94 L 04/03/21 06:47 100.4 F H 73 15 106/61 95 04/03/21 02:00 98.9 F 88 16 142/85 96 04/02/21 20:00 98.7 F 90 16 116/73 99 04/02/21 18:00 98.4 F 63 18 109/64 97 Intake and Output 04/03/21 04/03/21 04/03/21 06:59 14:59 22:59 Intake Total 400 Balance 400 Intake: Oral 400 Results CBC & Chem 7: 04/04/21 06:34 04/03/21 12:56 Labs: Abnormal Lab Results - Last 24 Hours (Table) 04/03/21 04/03/21 Range/Units 12:56 12:56 RBC 3.98 L (4.30-5.90) m/uL Hgb 12.0 L (13.0-17.5) gm/dL Hct 36.0 L (39.0-53.0) % BUN 23 H (9-20) mg/dL
[2021-04-04 11:59] LABS: African American GFR (CKD) 86.2 (60.0-200.0); Albumin 4.1 g/dL (3.8-4.9); Albumin/Globulin Ratio 1.46 (1.60-3.17); Anion Gap 14.3 mmol/L (10.00-18.00); BUN/Creat Ratio 22.5 Ratio (12.00-20.00); Blood Urea Nitrogen 22.5 mg/dL (9.0-27.0); C Reactive Protein 4.5 mg/dL (0.00-0.80); Calcium 9.6 mg/dL (8.7-10.3); Carbon Dioxide 23.7 mmol/L (20.0-27.5); Globulin 2.8 g/dL (1.6-3.3); Non-African American GFR(CKD) 74.3 (60.0-200.0); Potassium 4.4 mmol/L (3.5-5.5); Total Bilirubin 0.2 mg/dL (0.30-1.20); Total Protein 6.9 g/dL (6.2-8.2)
--- NOTE | 2021-04-04 13:27 | P.PN ---
Subjective Patient is a 75-year-old male with a known history of dementia was brought to the hospital by EMS due to altered mental status. Patient is a poor historian. Apparently EMS found the patient to be altered at his residence. Patient's neighbor in the morning he was found walking around his apartment complex make it and enable heparin will resume and get him dressed. Fevers later neighbor found him altered significantly and decided to call EMS and patient was brought to the emergency room. Patient states that she has not been feeling well for the past 3-4 days. In the ER blood pressure 141/84 pulse 90 respirations 18 and T-max 11.6 and pul se ox 96% on room air. Chest x-ray showed prominent right hilum and adenopathy or mass is not excluded. CT of the chest might be helpful for further evaluation. No abnormality of the lungs. EKG showed sinus rhythm with short CA interval. Laboratory data showed WBC 2.8 hemoglobin 11.5 and platelets 159 Lymphocytes 0.5 Sodium 1:30 depression 4.3 chloride 100 bicarb is 24 BUN 35 and creatinine 1.13 Liver enzymes are not elevated. Troponin 1 negative Urinalysis is negative for infection. Cor with 19 PCR detected. 03/25/2021 Patient is in the emergency room. Still having mild confusion. It appears to be weak. No complaints of chest pain or worsening shortness breath. Patient is maintained oxygen 97-95% on room air. No complaints of chest pain. No headache or dizziness or lightheadedness. Patient is a poor historian due to underlying dementia. Patient has been afebrile. Continue on Lovenox and multivitamins. Continued on gentle IV hydration. Encourage oral intake and PTOT consulted. Laboratory data showed WBC 4.0 hemoglobin 10.6 and platelets 147 lymphocytes 0.63 BUN 20 and creatinine 0.9 TSH by 0.504. Urinalysis is negative for infection. 03/26/2021 Patient is currently resting in the bed comfortably. He appears to be awake alert and oriented 3. Patient still feels weak. PT OT is following. Oxygen saturation 98% on room air. Patient is being controlled on Lovenox subcu. Patient has been afebrile. No nausea vomiting or abdominal pain or diarrhea. Continued on multivitamins. Laboratory data reviewed. Patient may need rehab transfer. 03/27/2021 Patient is currently resting in the bed. Awake alert and oriented. PT OT is following. Saturating well on room air. Continue Lovenox subcu and multivitamins. Laboratory data reviewed. Anticipate discharged to rehab versus home with home PT. Subjective: 03/29/2021 This is a pleasant 75 years old male advanced dementia. He shouldn't presents because he was roaming in his apartment while naked. Patient was found to have coated 19 infection without hypoxia, no respiratory symptoms. No fever. No gastroenteritis-like picture. Hemodynamics please and vitals stable. Patient was kept on multiple vitamin supplement Lovenox for DVT and PE prophylaxis Patient is medically stable for discharge, however family cannot take care of him and pending placement, however because of his COVID-19 infection and because of his risk of elopement his placement was not easy. Discussed the case with block and case maker and staff. 03/30/2021 Patient is with advanced dementia,and is confused at baseline patient is clinically the same He is hemodynamically stable He is not eating much Bladder scan to check today and he has only 113 patient is pending placement However his long-term prognosis is very poor 03/31/2021 patient today was seen standing up in his room, looks calm and answer questions appropriately however he is forgetful and confused and has no insight into his illness or surroundings. However he looks comfortable and not in distress. No pain. Patient is medically stable pending placement Also he has poor appetite, he 50-75% of his dinner last night, patient is encouraged to eat and drink more and he agrees 04/01/2021 He is a still calm, and pleasant but confused. His not eating much, its 25% of his meal despite encouragement and discussing with the staff to help him. Consult nutrition for tomorrow Medically stable for discharge pending placement As per The licensed clinical social worker piotr , patient may be accepted for rehab on 04/04 long-term prognosis is poor, patient may be eligible for palliative consult as an outpatient 04/02/2021 Patient is clinically same, pending placement. I discussed the case with Jose Alberto the licensed clinical social worker, is likely he will be discharged this and 2 more d ays. Patient with poor appetite but gradually improving as today 36% of his meal. Added megace to encourage appetite 04/03/2021 Shouldn't today is more lethargic and less interactive than the last couple days Also he has low-grade temperature of 100. We going to repeat labs CBC, BMP as well as urinalysis and chest x-ray. Also fractures disease consult Patient apparently has not eaten today because of above 04/04/2021 Patient today is awake pleasant who was holding his own finished his copy of ice cream and it looks like he wanted more, I told to staff. Also he is on Megace. However he is not eating well for example yesterday he only ate one snack 100% the whole day. Still not eating much today on for several days. I spoke with his legal guardian who is his ex- this Marlys Harp who became his legal guardian yesterday at [phone] and I discussed the case with her, as well as options including placing PEG tube versus hospice, she wants him to be seen by his PCP Dr. Cruz. I discussed with licensed clinical social worker and bedside nurse to contact Dr. Cruz and switch patient to his service Upon guardian request ID team recommended no antibiotic Objective - Vital Signs Vital signs: Vital Signs Temp 98.0 F 04/04/21 10:00 Pulse 78 04/04/21 10:00 Resp 17 04/04/21 10:00 BP 118/73 04/04/21 10:00 Pulse Ox 95 04/04/21 10:00 Intake & Output 04/03/21 04/04/21 04/04/21 18:59 06:59 18:59 Intake Total 0 Balance 0 Intake: Oral 0 Other: Voiding Method Toilet Diaper # Voids 2 # Bowel Movements 1 - Exam -GENERAL: The patient is alert and oriented x0, pleasant but confused, answer some questions but disoriented to surrounded, not in any acute distress. Well developed, well nourished. HEENT: Pupils are round and equally reacting to light. EOMI. No scleral icterus. No conjunctival pallor. Normocephalic, atraumatic. No pharyngeal erythema. No thyromegaly. CARDIOVASCULAR: S1 and S2 present. No murmurs, rubs, or gallops. PULMONARY: Chest is clear to auscultation, no wheezing or crackles. ABDOMEN: Soft, nontender, nondistended, normoactive bowel sounds. No palpable organomegaly. MUSCULOSKELETAL: No joint swelling or deformity. EXTREMITIES: No cyanosis, clubbing, or pedal edema. NEUROLOGICAL: Gross neurological examination did not reveal any focal deficits. SKIN: No rashes. no petechiae. - Labs CBC & Chem 7: 04/04/21 06:34 04/04/21 06:34 Labs: Abnormal Lab Results - Last 24 Hours (Table) 04/03/21 04/03/21 04/03/21 Range/Units 00:08 12:56 12:56 RBC (4.40-5.60) X 10*6/uL Hgb (13.0-17.0) g/dL Hct (39.6-50.0) % Immature Gran # (0.00-0.04) X 10*3/uL D-Dimer (<0.60) mg/L FEU BUN 23 H (9-20) mg/dL BUN/Creatinine Ratio (12.00-20.00) Ratio Total Bilirubin (0.30-1.20) mg/dL C-Reactive Protein (0.00-0.80) mg/dL Albumin/Globulin Ratio (1.60-3.17) g/dL Procalcitonin 0.10 H (0.02-0.09) ng/mL Urine Protein Trace H (Negative) Ur Leukocyte Esterase Trace H (Negative) Urine WBC 7 H (0-5) /hpf Urine Mucus Rare H (None) /hpf 04/04/21 04/04/21 04/04/21 Range/Units 06:34 06:34 06:34 RBC 3.96 L (4.40-5.60) X 10*6/uL Hgb 11.6 L (13.0-17.0) g/dL Hct 35.3 L (39.6-50.0) % Immature Gran # 0.05 H (0.00-0.04) X 10*3/uL D-Dimer 0.63 H (<0.60) mg/L FEU BUN (9-20) mg/dL BUN/Creatinine Ratio 22.50 H (12.00-20.00) Ratio Total Bilirubin 0.20 L (0.30-1.20) mg/dL C-Reactive Protein 4.50 H (0.00-0.80) mg/dL Albumin/Globulin Ratio 1.46 L (1.60-3.17) g/dL Procalcitonin (0.02-0.09) ng/mL Urine Protein (Negative) Ur Leukocyte Esterase (Negative) Urine WBC (0-5) /hpf Urine Mucus (None) /hpf Assessment and Plan Assessment: Fever Acute covid 19 infection. Asymptomatic. Not hypoxic. Received monoclonal antibodies in the ER. Advanced dementia Neutropenia and normocytic anemia Prominent right hilum and adenopathy. Mass cannot be excluded. Dehydration and volume depletion with elevated BUN level. Improved History of glaucoma Mild to moderate protein calorie malnutrition Plan: This is a pleasant 75 years old male with advanced dementia and Covid Continue with multiple vitamins, vitamin C, vitamin D and zinc. Patient is not eating. Discussed with guardian request patient to be under his PCP Dr. Cruz. Discussed with staff discharge service once he got accepted Nutrition consult ID team consult. Recommend palliative consult as an outpatient Labs and medication were reviewed.. Continue same treatment. Continue with symptomatic treatment. Resume home medication. Monitor lytes and vitals. DVT and GI prophylaxis. Further recommendations as per clinical course of the patient DVT prophylaxis: Subcutaneous Lovenox Prognosis is guarded this time.
--- NOTE | 2021-04-04 17:06 | PN ---
PROGRESS NOTE DATE OF SERVICE: 04/04/2021 REASON FOR FOLLOWUP: Fever. INTERVAL HISTORY: The patient is afebrile. The patient is currently breathing comfortably on room air. The patient denies having any chest pain or cough. No abdominal pain or diarrhea. PHYSICAL EXAMINATION: Blood pressure 116/71 with a pulse of 64, temperature 98.3. He is 96% on room air. General description is an elderly male lying in bed in no distress. Respiratory system: Unlabored breathing, decreased intensity of the breath sounds, no wheeze. Heart S1, S2. Regular rate and rhythm. Abdomen soft, no tenderness. Extremities: No edema of the feet. LABS: Hemoglobin is 11.6, white count of 8.27, D-dimer 0.63, creatinine 1.0, procalcitonin 0.10. DIAGNOSTIC IMPRESSION AND PLAN: Patient with low-grade fever could be related to his underlying COVID-19 infection. No evidence of any secondary bacterial pneumonia. Procalcitonin is very mild elevated at 0.1o and could be seen in the later stages of the COVID-19 infection with no evidence of any secondary bacterial infection. Recommend no antibiotics and monitor the patient closely off antibiotic therapy. MMODL / IJN: [id number] /
[2021-04-04] MEDS: prednisoLONE ACETATE 1% OPHTH DROPS 5 ML BTL LEFT EYE SCH (20:56)
--- NOTE | 2021-04-05 08:31 | P.PN ---
Subjective Principal diagnosis: Failure to thrive dementia Covid This is 75-year-old white male who was reassigned to me after a technical glitch which happen when he was originally admitted. The patient is disoriented and in not responding to questions appropriately. Poor by mouth intake. Palliative versus hospice care. The patient cannot do his ADLs at this time. No voiding difficulties but again the patient is disoriented. Objective - Vital Signs Vital signs: Vital Signs Temp 97.5 F L 04/05/21 05:40 Pulse 63 04/05/21 05:40 Resp 15 04/04/21 18:00 BP 90/58 04/05/21 05:40 Pulse Ox 97 04/05/21 05:40 Intake & Output 04/04/21 04/05/21 04/05/21 18:59 06:59 18:59 Intake Total 250 Balance 250 Weight 62.596 kg Intake: Oral 250 Other: Voiding Method Toilet Diaper # Voids 1 - Constitutional General appearance: Present: average body habitus - EENT Eyes: Absent: abnormal pupil - Neck Neck: Absent: lymphadenopathy - Respiratory Respiratory: bilateral: CTA - Cardiovascular Rhythm: regular Heart sounds: normal: S1, S2 Abnormal Heart Sounds: Absent: S3 Gallop - Gastrointestinal General gastrointestinal: Present: soft. Absent: tenderness - Integumentary Integumentary: Absent: cellulitis - Psychiatric Psychiatric: Absent: A&O x's 3 - Labs CBC & Chem 7: 04/04/21 06:34 04/04/21 06:34 Labs: Abnormal Lab Results - Last 24 Hours (Table) 04/04/21 04/04/21 Range/Units 06:34 06:34 RBC 3.96 L (4.40-5.60) X 10*6/uL Hgb 11.6 L (13.0-17.0) g/dL Hct 35.3 L (39.6-50.0) % Immature Gran # 0.05 H (0.00-0.04) X 10*3/uL BUN/Creatinine Ratio 22.50 H (12.00-20.00) Ratio Total Bilirubin 0.20 L (0.30-1.20) mg/dL C-Reactive Protein 4.50 H (0.00-0.80) mg/dL Albumin/Globulin Ratio 1.46 L (1.60-3.17) g/dL Assessment and Plan (1) Dementia Current Visit: Yes Status: Acute Code(s): F03.90 - UNSPECIFIED DEMENTIA WITHOUT BEHAVIORAL DISTURBANCE SNOMED Code(s): 37315217 (2) Altered mental status Current Visit: Yes Status: Acute Code(s): R41.82 - ALTERED MENTAL STATUS, UNSPECIFIED SNOMED Code(s): 829948737 (3) COVID-19 Current Visit: Yes Status: Acute Code(s): U07.1 - COVID-19 SNOMED Code(s): 532180432 Plan: Given his overall complexity, I suspect he would benefit from palliative versus hospice care. Check CBC and CMP in a.m. per Prognosis is guarded
[2021-04-05] MEDS: MEGESTROL 400 MG/10 ML CUP PO SCH (10:16)
[2021-04-05] MEDS: CHOLECALCIFEROL 25 MCG (1000 IU) TABLET PO SCH (10:16)
[2021-04-05] MEDS: DONEPEZIL 10 MG TAB PO SCH (10:16)
[2021-04-05] MEDS: ASCORBIC ACID 500 MG TAB PO SCH (10:16)
[2021-04-05] MEDS: ZINC SULFATE 220 MG CAP PO SCH (10:16)
[2021-04-05] MEDS: ENOXAPARIN 40 MG/0.4 ML SYRINGE SQ SCH (10:16)
[2021-04-05] MEDS: LATANOPROST 0.005% OPHTH DROPS 2.5 ML BTL LEFT EYE SCH (10:22)
[2021-04-05] MEDS: BRIMONIDINE TARTRATE 0.2% DROPS 5 ML BTL LEFT EYE SCH (10:23)
[2021-04-05 10:26] VITALS: BP 101/67; PULSE 83; RESP 16; TEMP 99
--- NOTE | 2021-04-05 13:13 | P.DS ---
Providers Date of admission: 03/24/21 11:58 Attending physician: Rafael Cruz Consults: 04/03/21 12:46 Consult Physician Urgent Consulting Provider: Karen Morse Consult Reason/Comments: pt with covid pending plaement ,now develops fever Do you want consulting provider notified?: Yes Primary care physician: Stated None - Discharge Diagnosis(es) (1) Dementia Current Visit: Yes Status: Acute (2) Altered mental status Current Visit: Yes Status: Acute (3) COVID-19 Current Visit: Yes Status: Acute Hospital Course: This is discharge summary 75-year-old white male essentially admitted for worsening respiratory distress. The patient was admitted essentially for Covid 19 pneumonia. He has struggled with by mouth intake and has difficulty with elements of cognitive skill. He has element of dementia that has been stable. However we will supplement with Megace so that his appetite becomes more appropriate over time. From a respiratory perspective he has been stabilized and will be sent home on appropriate treatment. Due to his multiple comorbidities he will be sent to [facility]. Patient Condition at Discharge: Fair Plan - Discharge Summary Discharge Rx Participant: No New Discharge Prescriptions: New RX: Ascorbic Acid [Vitamin C] 500 mg PO DAILY #30 tab RX: Megestrol [Megace] 400 mg PO DAILY #300 ml RX: Cholecalciferol [Vitamin D3 (25 Mcg = 1000 Iu)] 25 mcg PO DAILY #30 tablet Continue RX: prednisoLONE ACETATE 1% OPHTH [Pred Forte 1%] 1 drops LEFT EYE HS RX: Brimonidine Tartrate [Alphagan P 0.2% Ophth Soln] 1 drops LEFT EYE BID RX: Ibuprofen [Motrin] 400 mg PO Q6HR PRN PRN Reason: Pain Or Fever > 100.5 Vitamin C Plus 1 tab PO DAILY RX: Latanoprost [Xalatan 0.005%] 1 drop LEFT EYE BID RX: Donepezil HCl [Aricept] 10 mg PO DAILY RX: Zinc 50 mg PO DAILY Discharge Medication List RX: Brimonidine Tartrate [Alphagan P 0.2% Ophth Soln] 1 drops LEFT EYE BID 03/24/21 [History] RX: Donepezil HCl [Aricept] 10 mg PO DAILY 03/24/21 [History] RX: Ibuprofen [Motrin] 400 mg PO Q6HR PRN 03/24/21 [History] RX: Latanoprost [Xalatan 0.005%] 1 drop LEFT EYE BID 03/24/21 [History] RX: Zinc 50 mg PO DAILY 03/24/21 [History] RX: prednisoLONE ACETATE 1% OPHTH [Pred Forte 1%] 1 drops LEFT EYE HS 03/24/21 [History] Vitamin C Plus 1 tab PO DAILY 03/24/21 [History] RX: Ascorbic Acid [Vitamin C] 500 mg PO DAILY #30 tab 03/26/21 [Rx] RX: Cholecalciferol [Vitamin D3 (25 Mcg = 1000 Iu)] 25 mcg PO DAILY #30 tablet 03/26/21 [Rx] RX: Megestrol [Megace] 400 mg PO DAILY #300 ml 04/05/21 [Rx] Follow up Appointment(s)/Referral(s): Adria Moreno Palliative [NON-STAFF] - None,Stated [Primary Care Provider] - 1-2 days
== END 2021-04-05 15:02 | DRG 177 ==
LOC: EC 08:16 → EEVIPCON 11:58 → 4SSUR 11:58
PROVIDERS: ADMIT Family Medicine; ATTEND Family Medicine
PROC: XW033H6 Introduction of Other New Technology Monoclonal Antibody into Peripheral Vein, Percutaneous Approach, New Technology Group 6 (ICD-10-PCS; principal; 2021-03-24)
DX: U07.1 COVID-19 (principal); J12.82 Pneumonia due to coronavirus disease 2019; J15.9 Unspecified bacterial pneumonia; J98.11 Atelectasis; E44.1 Mild protein-calorie malnutrition; Z68.1 Body mass index [BMI] 19.9 or less, adult; D64.9 Anemia, unspecified; D70.9 Neutropenia, unspecified; E86.0 Dehydration; F03.90 Unspecified dementia, unspecified severity, without behavioral disturbance, psychotic disturbance, mood disturbance, and anxiety; R62.7 Adult failure to thrive; Z79.899 Other long term (current) drug therapy; Z82.3 Family history of stroke; Z86.011 Personal history of benign neoplasm of the brain; Z87.891 Personal history of nicotine dependence; H40.9 Unspecified glaucoma
CPT/HCPCS: 36415; 71045; 80048; 80053; 81001; 83605; 83615; 83735; 84145; 84443; 84484; 85025; 85379; 85610; 85730; 86140; 87040; 87502; 87635; 93005; 96372; 96374; 99285

== ENCOUNTER 2022-01-12 00:34 | Emergency (ER) | payer MEDICARE, OTHER ==
[2022-01-12 00:51] VITALS: TEMP 98.4
--- NOTE | 2022-01-12 02:02 | ED ---
Fall HPI - General Chief Complaint: Fall Stated Complaint: fall Source: EMS, RN notes reviewed, old records reviewed Mode of arrival: EMS - History of Present Illness Initial Comments: Patient is a 76-year-old male presenting to the emergency room via EMS after a fall at his retirement yesterday and again earlier this evening in which he reportedly hit his head on the hallway wall. He is at his baseline mental status of alert to self only and has recurrent falls at his extended care facility. He has minimal interaction vocally and is legally blind. In addition to his cataracts, dementia he has a past medical history significant for a meningioma which she chose not to have intervention on. - Related Data Home Medications Medication Instructions Recorded Confirmed Brimonidine Tartrate [Alphagan P 1 drops LEFT EYE BID 03/24/21 03/24/21 0.2% Ophth Soln] Donepezil HCl [Aricept] 10 mg PO DAILY 03/24/21 03/24/21 Ibuprofen [Motrin] 400 mg PO Q6HR PRN 03/24/21 03/24/21 Latanoprost [Xalatan 0.005%] 1 drop LEFT EYE BID 03/24/21 03/24/21 Vitamin C Plus 1 tab PO DAILY 03/24/21 03/24/21 Zinc 50 mg PO DAILY 03/24/21 03/24/21 prednisoLONE ACETATE 1% OPHTH 1 drops LEFT EYE HS 03/24/21 03/24/21 [Pred Forte 1%] Previous Rx's Medication Instructions Recorded Ascorbic Acid [Vitamin C] 500 mg PO DAILY #30 tab 03/26/21 Cholecalciferol [Vitamin D3 (25 25 mcg PO DAILY #30 tablet 03/26/21 Mcg = 1000 Iu)] Megestrol [Megace] 400 mg PO DAILY #300 ml 04/05/21 Allergies Allergy/AdvReac Type Severity Reaction Status Date / Time No Known Allergies Allergy Verified 01/12/22 00:46 Review of Systems ROS Statement: Those systems with pertinent positive or pertinent negative responses have been documented in the HPI. ROS Other: All systems not noted in ROS Statement are negative. 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-retinal problem with surgery History of Any Multi-Drug Resistant Organisms: None Reported Past Surgical History: Tonsillectomy Additional Past Surgical History / Comment(s): R eye surgery for a retinal problem Past Anesthesia/Blood Transfusion Reactions: No Reported Reaction Past Psychological History: No Psychological Hx Reported Smoking Status: Former smoker - Past Family History Mother Family Medical History: CVA/TIA General Exam Limitations: altered mental status General appearance: alert, in no apparent distress Head exam: Present: atraumatic, normocephalic Eye exam: Absent: PERRL (baseline) ENT exam: Present: normal exam, mucous membranes moist Neck exam: Present: normal inspection. Absent: lymphadenopathy Respiratory exam: Present: normal lung sounds bilaterally. Absent: respiratory distress, wheezes, rales, rhonchi, stridor Cardiovascular Exam: Present: regular rate, normal rhythm, normal heart sounds. Absent: systolic murmur, diastolic murmur, rubs, gallop, clicks GI/Abdominal exam: Present: soft, normal bowel sounds. Absent: distended, tenderness, guarding, rebound, rigid Rectal exam: Present: deferred Extremities exam: Present: normal inspection, pedal edema (bilateral +2 ) Back exam: Present: normal inspection Neurological exam: Present: alert, other (does not follow directions) Psychiatric exam: Present: flat affect Skin exam: Present: other (skin tear left hand) Course Vital Signs 01/12/22 00:46 Temperature 98.4 F Pulse Rate 69 Respiratory 15 Rate Blood Pressure 133/74 O2 Sat by Pulse 97 Oximetry Medical Decision Making - Medical Decision Making 76-year-old male who lives in the [facility] presents post fall not on blood thinners at baseline mental status without any hematoma or lacerations noted to the head. No indication for CT of the brain at this time. Will check CBC and BMP to rule out anemia, infection and dehydration. Pending normal labs will plan for return back to retirement facility. CBC with mild anemia at baseline. BMP reveals elevated BUN at 30 but normal creatinine and normal electrolytes otherwise. Due to peripheral edema and lack of cooperative behavior with IV will defer IV fluids. Patient stable for transfer back to retirement with safety precautions for falls encouraged. Case discussed with Dr. Alan. - Lab Data Result diagrams: 01/12/22 01:50 09/25/22 01:50 Lab Results 01/12/22 01/12/22 Range/Units 01:50 01:50 WBC 7.3 (3.8-10.6) k/uL RBC 3.40 L (4.30-5.90) m/uL Hgb 9.9 L (13.0-17.5) gm/dL Hct 30.4 L (39.0-53.0) % MCV 89.5 (80.0-100.0) fL MCH 29.2 (25.0-35.0) pg MCHC 32.6 (31.0-37.0) g/dL RDW 13.5 (11.5-15.5) % Plt Count 227 (150-450) k/uL MPV 7.9 Neutrophils % 80 % Lymphocytes % 11 % Monocytes % 5 % Eosinophils % 0 % Basophils % 0 % Neutrophils # 5.8 (1.3-7.7) k/uL Lymphocytes # 0.8 L (1.0-4.8) k/uL Monocytes # 0.4 (0-1.0) k/uL Eosinophils # 0.0 (0-0.7) k/uL Basophils # 0.0 (0-0.2) k/uL Sodium 140 (137-145) mmol/L Potassium 4.6 (3.5-5.1) mmol/L Chloride 104 (98-107) mmol/L Carbon Dioxide 25 (22-30) mmol/L Anion Gap 11 mmol/L BUN 32 H (9-20) mg/dL Creatinine 0.96 (0.66-1.25) mg/dL Est GFR (CKD-EPI)AfAm >90 (>60 ml/min/1.73 sqM) Est GFR (CKD-EPI)NonAf 78 (>60 ml/min/1.73 sqM) Glucose 103 H (74-99) mg/dL Calcium 9.0 (8.4-10.2) mg/dL Disposition Clinical Impression: Fall Disposition: HOME SELF-CARE Condition: Stable Instructions (If sedation given, give patient instructions): Fall Prevention for Older Adults (ED) Additional Instructions: Please monitor for signs and symptoms of worsening dehydration or anemia. Please maintain safety and prevent falls when able to. Please return to the Emergency Department if symptoms worsen or any other concerns. Is patient prescribed a controlled substance at d/c from ED?: No Referrals: Skip Celaya MD [Primary Care Provider] - 1-2 days Time of Disposition: 02:47
[2022-01-12 02:05] LABS: Basophils % (A) 0 %; Eosinophils % (A) 0 %; HCT 30.4 % (39.0-53.0); HGB 9.9 gm/dL (13.0-17.5); Lymphocytes # (A) 0.8 k/uL (1.0-4.8); Lymphocytes % (A) 11 %; MCH 29.2 pg (25.0-35.0); MCHC 32.6 g/dL (31.0-37.0); MCV 89.5 fL (80.0-100.0); Mean Platelet Volume 7.9; Monocytes # (A) 0.4 k/uL (0-1.0); Monocytes % (A) 5 %; Neutrophils # (A) 5.8 k/uL (1.3-7.7); Neutrophils % (A) 80 %; Platelet Count 227 k/uL (150-450); RDW 13.5 % (11.5-15.5); WBC 7.3 k/uL (3.8-10.6)
[2022-01-12 02:37] LABS: African American GFR (CKD) >90 (>60 ml/min/1.73 sqM); Anion Gap 11 mmol/L; Blood Urea Nitrogen 32 mg/dL (9-20); Carbon Dioxide 25 mmol/L (22-30); Chloride 104 mmol/L (98-107); Glucose 103 mg/dL (74-99); Non-African American GFR(CKD) 78 (>60 ml/min/1.73 sqM); Potassium 4.6 mmol/L (3.5-5.1); Sodium 140 mmol/L (137-145)
[2022-01-12 03:15] VITALS: BP 126/74; PULSE 87; RESP 14
== END 2022-01-12 03:15 | disposition home or self-care (01) ==
LOC: EC 00:34
DX: S61.412A Laceration without foreign body of left hand, initial encounter (principal); R41.82 Altered mental status, unspecified; Z87.891 Personal history of nicotine dependence; W18.09XA Striking against other object with subsequent fall, initial encounter; Y92.129 Unspecified place in nursing home as the place of occurrence of the external cause
CPT/HCPCS: 36415; 80048; 85025; 99283

== ENCOUNTER 2022-09-09 00:40 | Inpatient (IN) | payer MEDICARE, OTHER ==
[2022-09-09] MEDS ORDERED: SODIUM CHLORIDE 0.9% 1,000 ML IV STA (00:44)
[2022-09-09 01:24] LABS: Albumin 3.1 g/dL (3.5-5.0); Calcium 8.2 mg/dL (8.4-10.2); Potassium 4.7 mmol/L (3.5-5.1); Total Bilirubin 0.3 mg/dL (0.2-1.3); Total Protein 6.1 g/dL (6.3-8.2)
[2022-09-09 01:30] LABS: Basophils % (A) 0 %; Eosinophils % (A) 0 %; HCT 30.8 % (39.0-53.0); HGB 10.5 gm/dL (13.0-17.5); Lymphocytes % (A) 10 %; MCH 30.2 pg (25.0-35.0); MCV 88.9 fL (80.0-100.0); Mean Platelet Volume 7.5; Monocytes # (A) 0.6 k/uL (0-1.0); Monocytes % (A) 6 %; Neutrophils # (A) 7.8 k/uL (1.3-7.7); Neutrophils % (A) 79 %; Platelet Count 270 k/uL (150-450); RBC 3.46 m/uL (4.30-5.90); RDW 13.8 % (11.5-15.5); WBC 9.9 k/uL (3.8-10.6)
[2022-09-09 01:35] LABS: Appearance,Urine Turbid (Clear); Bacteria,Urine Many /hpf; Bilirubin,Urine Negative (Negative); Blood,Urine Moderate (Negative); Color,Urine Yellow; Glucose,Urine (UA) Negative (Negative); Hyaline Casts,Urine 24 /lpf (0-2); Ketones,Urine Negative (Negative); Leukocyte Esterase,Urine Large (Negative); Nitrite,Urine Negative (Negative); Protein,Urine 1+ (Negative); RBC,Urine 73 /hpf (0-5); Specific Gravity,Urine 1.018 (1.001-1.035); Urobilinogen,Urine <2.0 mg/dL (<2.0); WBC,Urine >182 /hpf (0-5)
--- NOTE | 2022-09-09 01:58 | ED ---
General Adult HPI - General Chief complaint: Fever Stated complaint: Sepsis Time Seen by Provider: 09/09/22 00:44 Source: family, EMS, RN notes reviewed, old records reviewed Mode of arrival: EMS Limitations: altered mental status, physical limitation - History of Present Illness Initial comments: 76-year-old male presented from half-way for evaluation of fever. Patient had reported fever throughout the day today and had a low blood pressure. Pa ramedics obtain a blood pressure in the 90 systolic. The patient is alert and oriented 1 which is baseline. History of dementia. There has been a cough and the patient does have an indwelling Green catheter. - Related Data Home Medications Medication Instructions Recorded Confirmed Brimonidine Tartrate [Alphagan P 1 drops LEFT EYE BID 03/24/21 03/24/21 0.2% Ophth Soln] Donepezil HCl [Aricept] 10 mg PO DAILY 03/24/21 03/24/21 Ibuprofen [Motrin] 400 mg PO Q6HR PRN 03/24/21 03/24/21 Latanoprost [Xalatan 0.005%] 1 drop LEFT EYE BID 03/24/21 03/24/21 Vitamin C Plus 1 tab PO DAILY 03/24/21 03/24/21 Zinc 50 mg PO DAILY 03/24/21 03/24/21 prednisoLONE ACETATE 1% OPHTH 1 drops LEFT EYE HS 03/24/21 03/24/21 [Pred Forte 1%] Previous Rx's Medication Instructions Recorded Ascorbic Acid [Vitamin C] 500 mg PO DAILY #30 tab 03/26/21 Cholecalciferol [Vitamin D3 (25 25 mcg PO DAILY #30 tablet 03/26/21 Mcg = 1000 Iu)] Megestrol [Megace] 400 mg PO DAILY #300 ml 04/05/21 Allergies Allergy/AdvReac Type Severity Reaction Status Date / Time No Known Allergies Allergy Verified 01/12/22 00:46 Review of Systems ROS Statement: Those systems with pertinent positive or pertinent negative responses have been documented in the HPI. ROS Other: All systems not noted in ROS Statement are negative. 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-retinal problem with surgery History of Any Multi-Drug Resistant Organisms: None Reported Past Surgical History: Tonsillectomy Additional Past Surgical History / Comment(s): R eye surgery for a retinal problem Past Anesthesia/Blood Transfusion Reactions: No Reported Reaction Past Psychological History: No Psychological Hx Reported Smoking Status: Former smoker - Past Family History Mother Family Medical History: CVA/TIA General Exam Limitations: altered mental status, physical limitation General appearance: alert, in no apparent distress Head exam: Present: atraumatic, normocephalic Eye exam: Present: normal appearance, PERRL ENT exam: Present: mucous membranes dry Neck exam: Present: normal inspection. Absent: tenderness, meningismus Respiratory exam: Present: normal lung sounds bilaterally. Absent: respiratory distress, wheezes Cardiovascular Exam: Present: regular rate, normal rhythm GI/Abdominal exam: Present: soft. Absent: distended, tenderness, guarding Back exam: Present: other (Sacral decubitus ulcer) Neurological exam: Present: alert Skin exam: Present: warm, dry, intact, normal color Course Vital Signs 09/09/22 09/09/22 09/09/22 00:43 00:45 01:00 Temperature 98.3 F Pulse Rate 101 H 105 H Respiratory 18 24 Rate Blood Pressure 113/64 113/64 O2 Sat by Pulse 77 L 91 L 83 L Oximetry 09/09/22 09/09/22 09/09/22 01:15 01:30 01:45 Temperature Pulse Rate 102 H 108 H 88 Respiratory 16 19 Rate Blood Pressure 113/71 102/71 101/60 O2 Sat by Pulse 83 L 96 95 Oximetry 09/09/22 09/09/22 09/09/22 02:00 02:30 03:00 Temperature Pulse Rate 93 88 84 Respiratory 17 16 18 Rate Blood Pressure 98/63 95/55 98/60 O2 Sat by Pulse 98 98 93 L Oximetry Medical Decision Making - Medical Decision Making Was pt. sent in by a medical professional or institution (, PA, GAUGE AND WEIGH MACHINE ADJUSTER, urgent care, hospital, or half-way...) When possible be specific @ Sent from half-way Did you speak to anyone other than the patient for history (EMS, parent, family, police, friend...)? What history was obtained from this source @ Paramedics and patient's Did you review nursing and triage notes (agree or disagree)? Why? @ -[I reviewed and agree with nursing and triage notes] Were old charts reviewed (outside hosp., previous admission, EMS record, old EKG, old radiological studies, urgent care reports/EKG's, half-way records)? Report findings @ -[No old charts were reviewed] Differential Diagnosis (chest pain, altered mental status, abdominal pain women, abdominal pain men, vaginal bleeding, weakness, fever, dyspnea, syncope, headache, dizziness, GI bleed, back pain, seizure, CVA, palpatations, mental health, musculoskeletal)? @ -Differential Fever: Pneumonia, viral URI, endocarditis, myocarditis, pericarditis, otitis, si nusitis, peritonsillar Abscess, retropharyngeal Abscess, epiglottitis, peritonitis, appendicitis, Cheryle cystitis, diverticulitis, hepatitis, colitis, UTI, PID, TOA, pyelonephritis, prostatitis, epididymitis, meningitis, encephalitis, pulmonary embolism, CVA, thyroid storm, pancreatitis, adrenal carmita is, cavernous sinus thrombosis, this is not meant to be an all-inclusive list. EKG interpreted by me (3pts min.). @ -[As above] X-rays interpreted by me (1pt min.). @ Negative for focal pneumonia CT interpreted by me (1pt min.). @ -[None done] U/S interpreted by me (1pt. min.). @ -[None done] What testing was considered but not performed or refused? (CT, X-rays, U/S, labs)? Why? @ -[None] What meds were considered but not given or refused? Why? @ -[None] Did you discuss the management of the patient with other professionals (prof judah i.e. , PA, G[employer] AND [employer] MACHINE ADJUSTER, lab, RT, psych nurse, health care social worker, strategic debriefing officer, teacher, facility security officer, rn case manager hospice)? Give summary @ -EMH Was smoking cessation discussed for >3mins.? @ -[No] Was critical care preformed (if so, how long)? @ -[No] Were there social determinants of health that impacted care today? How? (Homelessness, low income, unemployed, alcoholism, drug addiction, transp ortation, low edu. Level, literacy, decrease access to med. care, shelter, rehab)? @ -[No] Was there de-escalation of care discussed even if they declined (Discuss DNR or withdrawal of care, Hospice)? DNR status @ -[No] What co-morbidities impacted this encounter? (DM, HTN, Smoking, COPD, CAD, Cancer, CVA, ARF, Chemo, Hep., AIDS, mental health diagnosis, sleep apnea, morbid obesity)? @ Dementia Was patient admitted / discharged? Hospital course, mention meds given and route, prescriptions, significant lab abnormalities, going to OR and other pertinent info. @ 76-year-old male presenting with fever. Patient has cough, sacral decubitus ulcer, and indwelling Green catheter. His viral panel is negative. His white blood cell count of 9.9. He has a normal lactic acid normal kidney function. His urinalysis is suggestive of UTI he did have his Green catheter changed today. Cultures are pending about the blood in the urine. Additionally he has a sacral decubitus ulcer with surrounding cellulitis. He is covered with ceftriaxone and vancomycin. He will be admitted to internal medicine. Undiagnosed new problem with uncertain prognosis? @ -[No] Drug Therapy requiring intensive monitoring for toxicity (Heparin, Nitro, Insulin, Cardizem)? @ -[No] Were any procedures done? @ -[No] Diagnosis/symptom? @ UTI with sepsis, sacral decubitus ulcer Acute, or Chronic, or Acute on Chronic? @ Acute Uncomplicated (without systemic symptoms) or Complicated (systemic symptoms)? @ Complicated Side effects of treatment? @ -[No] Exacerbation, Progression, or Severe Exacerbation? @ -[No] Poses a threat to life or bodily function? How? (Chest pain, [place], [place], pneumonia, PE, COPD, DKA, ARF, appy, cholecystitis, CVA, Diverticulitis, Homicidal, Suic idal, threat to staff... and all critical care pts) @ -Yes, sepsis, hypoperfusion - Lab Data Result diagrams: 09/09/22 00:55 09/09/22 00:55 Lab Results 09/09/22 09/09/22 09/09/22 Range/Units 00:55 00:55 00:55 WBC 9.9 (3.8-10.6) k/uL RBC 3.46 L (4.30-5.90) m/uL Hgb 10.5 L (13.0-17.5) gm/dL Hct 30.8 L (39.0-53.0) % MCV 88.9 (80.0-100.0) fL MCH 30.2 (25.0-35.0) pg MCHC 34.0 (31.0-37.0) g/dL RDW 13.8 (11.5-15.5) % Plt Count 270 (150-450) k/uL MPV 7.5 Neutrophils % 79 % Lymphocytes % 10 % Monocytes % 6 % Eosinophils % 0 % Basophils % 0 % Neutrophils # 7.8 H (1.3-7.7) k/uL Lymphocytes # 1.0 (1.0-4.8) k/uL Monocytes # 0.6 (0-1.0) k/uL Eosinophils # 0.0 (0-0.7) k/uL Basophils # 0.0 (0-0.2) k/uL Sodium 133 L (137-145) mmol/L Potassium 4.7 (3.5-5.1) mmol/L Chloride 99 (98-107) mmol/L Carbon Dioxide 24 (22-30) mmol/L Anion Gap 10 mmol/L BUN 33 H (9-20) mg/dL Creatinine 1.09 (0.66-1.25) mg/dL Est GFR (CKD-EPI)AfAm 77 (>60 ml/min/1.73 sqM) Est GFR (CKD-EPI)NonAf 67 (>60 ml/min/1.73 sqM) Glucose 98 (74-99) mg/dL Plasma Lactic Acid Silvestre (0.7-2.0) mmol/L Calcium 8.2 L (8.4-10.2) mg/dL Total Bilirubin 0.3 (0.2-1.3) mg/dL AST 28 (17-59) U/L ALT 15 (4-49) U/L Alkaline Phosphatase 69 (38-126) U/L Total Protein 6.1 L (6.3-8.2) g/dL Albumin 3.1 L (3.5-5.0) g/dL Urine Color Yellow Urine Appearance Turbid (Clear) Urine pH 6.0 (5.0-8.0) Ur Specific [place] 1.018 (1.001-1.035) Urine Protein 1+ H (Negative) Urine Glucose (UA) Negative (Negative) Urine Ketones Negative (Negative) Urine Blood Moderate H (Negative) Urine Nitrite Negative (Negative) Urine Bilirubin Negative (Negative) Urine Urobilinogen <2.0 (<2.0) mg/dL Ur Leukocyte Esterase Large H (Negative) Urine RBC 73 H (0-5) /hpf Urine WBC >182 H (0-5) /hpf Urine WBC Clumps Many H (None) /hpf Urine Bacteria Many H (None) /hpf Hyaline Casts 24 H (0-2) /lpf Influenza Type A (PCR) (Not Detectd) Influenza Type B (PCR) (Not Detectd) RSV (PCR) (Not Detectd) SARS-CoV-2 (PCR) (Not Detectd) 09/09/22 09/09/22 Range/Units 00:55 00:55 WBC (3.8-10.6) k/uL RBC (4.30-5.90) m/uL Hgb (13.0-17.5) gm/dL Hct (39.0-53.0) % MCV (80.0-100.0) fL MCH (25.0-35.0) pg MCHC (31.0-37.0) g/dL RDW (11.5-15.5) % Plt Count (150-450) k/uL MPV Neutrophils % % Lymphocytes % % Monocytes % % Eosinophils % % Basophils % % Neutrophils # (1.3-7.7) k/uL Lymphocytes # (1.0-4.8) k/uL Monocytes # (0-1.0) k/uL Eosinophils # (0-0.7) k/uL Basophils # (0-0.2) k/uL Sodium (137-145) mmol/L Potassium (3.5-5.1) mmol/L Chloride (98-107) mmol/L Carbon Dioxide (22-30) mmol/L Anion Gap mmol/L BUN (9-20) mg/dL Creatinine (0.66-1.25) mg/dL Est GFR (CKD-EPI)AfAm (>60 ml/min/1.73 sqM) Est GFR (CKD-EPI)NonAf (>60 ml/min/1.73 sqM) Glucose (74-99) mg/dL Plasma Lactic Acid Silvestre 1.8 (0.7-2.0) mmol/L Calcium (8.4-10.2) mg/dL Total Bilirubin (0.2-1.3) mg/dL AST (17-59) U/L ALT (4-49) U/L Alkaline Phosphatase (38-126) U/L Total Protein (6.3-8.2) g/dL Albumin (3.5-5.0) g/dL Urine Color Urine Appearance (Clear) Urine pH (5.0-8.0) Ur Specific [place] (1.001-1.035) Urine Protein (Negative) Urine Glucose (UA) (Negative) Urine Ketones (Negative) Urine Blood (Negative) Urine Nitrite (Negative) Urine Bilirubin (Negative) Urine Urobilinogen (<2.0) mg/dL Ur Leukocyte Esterase (Negative) Urine RBC (0-5) /hpf Urine WBC (0-5) /hpf Urine WBC Clumps (None) /hpf Urine Bacteria (None) /hpf Hyaline Casts (0-2) /lpf Influenza Type A (PCR) Not Detected (Not Detectd) Influenza Type B (PCR) Not Detected (Not Detectd) RSV (PCR) Not Detected (Not Detectd) SARS-CoV-2 (PCR) Not Detected (Not Detectd) Disposition Clinical Impression: Sepsis, Sacral decubitus ulcer, UTI (urinary tract infection) Disposition: ADMITTED IP TO THIS HOSP Condition: Stable Is patient prescribed a controlled substance at d/c from ED?: No Referrals: Skip Celaya MD [Primary Care Provider] - 1-2 days Time of Disposition: 04:03
--- NOTE | 2022-09-09 02:09 | XR ---
EXAM: XR Chest, 1 View CLINICAL HISTORY: ITS.REASON XR Reason: fever TECHNIQUE: Frontal view of the chest. COMPARISON: 04/03/2021 FINDINGS: Lungs: Left base linear atelectasis/scar. Pleural space: Unremarkable. No pneumothorax. No pleural effusions. Heart: Unremarkable. No cardiomegaly. Mediastinum: Unremarkable. Bones/joints: No acute osseous abnormalities. IMPRESSION: Left base linear atelectasis/scar.
[2022-09-09] MEDS ORDERED: KETOROLAC 15 MG/ML 1 ML VIAL IVP STA (03:45)
[2022-09-09] MEDS ORDERED: VANCOMYCIN IV PER PHARMACY 1 EACH MISC MISCELLANE PRN (03:45)
[2022-09-09] MEDS ORDERED: ACETAMINOPHEN TAB 325 MG TAB PO PRN (03:59)
[2022-09-09] MEDS ORDERED: NALOXONE 0.4 MG/ML 1 ML VIAL IV PRN (03:59)
[2022-09-09] MEDS ORDERED: IBUPROFEN 400 MG TAB PO PRN (03:59)
[2022-09-09] MEDS: SODIUM CHLORIDE 0.9% 1,000 ML IV SCH ×3 (04:06→21:32)
[2022-09-09] MEDS ORDERED: VANCOMYCIN 1,000 MG in SODIUM CHLORIDE 0.9% 250 ML IVPB ONE (04:30)
[2022-09-09] MEDS ORDERED: SODIUM CHLORIDE 0.9% 500 ML 500 ML IV ONE (05:16)
[2022-09-09] MEDS ORDERED: ACETAMINOPHEN IV (For NPO) 1,000 MG in EMPTY BAG 1 BAG IVPB ONE (05:30)
[2022-09-09] MEDS ORDERED: ARTIFICIAL TEARS-HYPROMELLOSE DROPS 15 ML BTL BOTH EYES PRN (10:38)
--- NOTE | 2022-09-09 14:12 | P.HPIM ---
History of Present Illness H&P Date: 09/09/22 history of present illness;patient is a 76-year-old gentleman with past medical history significant for dementia who presented to the ER because of fevers.patient is a resident of a long term. staff at facility was noticing patient has been spiking fevers and the blood pressure has been low.there was also complaining of lethargy and weakness. There was also low appetite. Patient has been complaining of cough. There was also sacral decub present. Because of these fevers patient was brought to the ER of [facility] lab work done in the ER showed white count 9.9, hemoglobin 10.5, platelet count 270, sodium 133, potassium 4.7, BUN 33, creatinine 1.09, calcium 8.2, UA done showed leukocyte Estrace positive, urine WBC more than 182 chest x-ray showed left basilar atelectasis patient was admitted to internal medicine service REVIEW OF SYSTEMS: Review of systems cannot be obtained because of patient's history of dementia PHYSICAL EXAMINATION: GENERAL: The patient is alert , not in any acute distress. Chronically ill Looking HEENT: Pupils are round and equally reacting to light. EOMI. No scleral icterus. No conjunctival pallor. Normocephalic, atraumatic. No pharyngeal erythema. No thyromegaly. CARDIOVASCULAR: S1 and S2 present. No murmurs, rubs, or gallops. PULMONARY: Chest is clear to auscultation, no wheezing or crackles. ABDOMEN: Soft, nontender, nondistended, normoactive bowel sounds. No palpable organomegaly. MUSCULOSKELETAL: No joint swelling or deformity. EXTREMITIES: No cyanosis, clubbing, or pedal edema. NEUROLOGICAL: Gross neurological examination did not reveal any focal deficits. SKIN: Sacral decubitus seen Assessment and plan sepsis Sacral decubitus UTI history of dementia Plan Monitor vital signs Monitor CBC Monitor CMP Follow-up on blood cultures Follow-up on urine cultures Continue wound care. Continue IV fluids Continue IV Rocephin and vancomycin Consult ID DVT prophylaxis: 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-retinal problem with surgery History of Any Multi-Drug Resistant Organisms: None Reported Past Surgical History: Tonsillectomy Additional Past Surgical History / Comment(s): R eye surgery for a retinal problem Past Anesthesia/Blood Transfusion Reactions: No Reported Reaction Past Psychological History: No Psychological Hx Reported Smoking Status: Former smoker - Past Family History Mother Family Medical History: CVA/TIA Medications and Allergies Home Medications Medication Instructions Recorded Confirmed Type RX: Brimonidine Tartrate [Alphagan 1 drop BOTH EYES BID@0800,1700 03/24/21 09/09/22 History P 0.2% Ophth Soln] RX: Ibuprofen [Motrin] 400 mg PO Q6HR PRN 03/24/21 09/09/22 History RX: Zinc 50 mg PO DAILY 03/24/21 09/09/22 History RX: Cholecalciferol [Vitamin D3 25 mcg PO DAILY #30 tablet 03/26/21 09/09/22 Rx (25 Mcg = 1000 Iu)] Acetaminophen Suppository [Tylenol 650 mg RECTAL Q4H PRN 09/09/22 09/09/22 History Suppository] Acetaminophen [Tylenol 8 Hour] 650 mg PO Q4H PRN 09/09/22 09/09/22 History Carboxymethylcellulose Sodium 2 drop BOTH EYES DIRECTED PRN 09/09/22 09/09/22 History [Thera Tears] Dorzolamide 2% [Trusopt 2%] 1 drop BOTH EYES BID@0600,1700 09/09/22 09/09/22 History Ensure Enlive 120 ml PO TID@0800,1200,1700 09/09/22 09/09/22 History Magnesium Hydroxide [Milk of 2,400 mg PO DAILY PRN 09/09/22 09/09/22 History Magnesia] Na Phos,M-B/Na Phos,Di-Ba [Fleet 133 ml RECTAL DAILY PRN 09/09/22 09/09/22 History Adult] Netarsudil Mesylat/Latanoprost 1 drop BOTH EYES HS 09/09/22 09/09/22 History [Rocklatan 0.02%-0.005% Eye Drp] Tamsulosin HCl [Flomax] 0.4 mg PO DAILY 09/09/22 09/09/22 History Valproic Acid Oral Soln [Depakene 500 mg PO TID@0800,1400,2100 09/09/22 09/09/22 History Syrup] amLODIPine [Norvasc] 2.5 mg PO DAILY 09/09/22 09/09/22 History bisacodyL [Dulcolax] 10 mg RECTAL DAILY PRN 09/09/22 09/09/22 History risperiDONE [risperiDONE ODT] 1 mg PO DAILY@1700 09/09/22 09/09/22 History Allergies Allergy/AdvReac Type Severity Reaction Status Date / Time No Known Allergies Allergy Verified 09/09/22 06:59 Physical Exam Vitals: Vital Signs Temp Pulse Resp BP Pulse Ox 09/09/22 09:24 105 H 18 121/68 99 09/09/22 09:00 84 16 109/67 09/09/22 08:30 83 18 93/57 09/09/22 08:00 70 16 91/71 09/09/22 07:30 87 18 102/67 09/09/22 07:00 89 18 86/55 09/09/22 06:30 88 29 H 99/58 97 09/09/22 06:00 85 18 91/64 83 L 09/09/22 05:00 101 F H 84 20 89/67 97 09/09/22 04:00 90 20 98/56 95 09/09/22 03:30 89 22 94/57 96 09/09/22 03:00 84 18 98/60 93 L 09/09/22 02:30 88 16 95/55 98 09/09/22 02:00 93 17 98/63 98 09/09/22 01:45 88 101/60 95 09/09/22 01:30 108 H 19 102/71 96 09/09/22 01:15 102 H 16 113/71 83 L 09/09/22 01:00 105 H 24 113/64 83 L 09/09/22 00:45 98.3 F 101 H 18 113/64 91 L 09/09/22 00:43 77 L Intake and Output 09/08/22 09/09/22 09/09/22 22:59 06:59 14:59 Other: Weight 64.864 kg Results CBC & Chem 7: 09/09/22 00:55 09/09/22 00:55 Labs: Abnormal Lab Results - Last 24 Hours (Table) 05/23/23 05/23/23 05/23/23 Range/Units 00:55 00:55 00:55 RBC 3.46 L (4.30-5.90) m/uL Hgb 10.5 L (13.0-17.5) gm/dL Hct 30.8 L (39.0-53.0) % Neutrophils # 7.8 H (1.3-7.7) k/uL Sodium 133 L (137-145) mmol/L BUN 33 H (9-20) mg/dL Calcium 8.2 L (8.4-10.2) mg/dL Total Protein 6.1 L (6.3-8.2) g/dL Albumin 3.1 L (3.5-5.0) g/dL Urine Protein 1+ H (Negative) Urine Blood Moderate H (Negative) Ur Leukocyte Esterase Large H (Negative) Urine RBC 73 H (0-5) /hpf Urine WBC >182 H (0-5) /hpf Urine WBC Clumps Many H (None) /hpf Urine Bacteria Many H (None) /hpf Hyaline Casts 24 H (0-2) /lpf
--- NOTE | 2022-09-09 19:23 | P.CONS ---
History of Present Illness - Reason for Consult Consult date: 09/09/22 UTI, sepsis Requesting physician: Aristides Farias - Chief Complaint Mental status changes and weakness x one day - History of Present Illness Patient is a 76-year-old male with a past medical his significant for dementia history of urinary retention requiring indwelling Green catheter and a UTI patient has been sent to the ER for evaluation of fever and low blood pres sure symptom has been going on for about a day before the patient was brought into the hospital according to the sister who was present at the bedside the patient did have a blood in the urine a day or 2 ago and apparently the patient Green catheter has been changed subsequently patient developing a fever low blood pressure and also some mental status changes patient on presentation to the hospital have a fever of 101 F patient was tachycardic also hypoxic requiring supplemental oxygen patient did have a normal white count with a left shift kidney function was normal enzymes are normal urine is positive influenza RSV and COVID testing was negative chest x-ray did show some atelectasis no co nsolidation patient received a dose of vancomycin and Rocephin has been admitted to hospital infectious disease was consulted for further management of antibiotic therapy most information has been obtained from review the chart talking to the nursing staff and family as the patient himself was not able to provide any history Review of Systems Positive points has been mentioned in HPI complete review could not be obtained because of his underlying mental status 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-retinal problem with surgery History of Any Multi-Drug Resistant Organisms: None Reported Past Surgical History: Tonsillectomy Additional Past Surgical History / Comment(s): R eye surgery for a retinal problem Past Anesthesia/Blood Transfusion Reactions: No Reported Reaction Past Psychological History: No Psychological Hx Reported Smoking Status: Former smoker - Past Family History Mother Family Medical History: CVA/TIA Medications and Allergies Home Medications Medication Instructions Recorded Confirmed Type Brimonidine Tartrate [Alphagan P 1 drop BOTH EYES BID@0800,1700 03/24/21 09/09/22 History 0.2% Ophth Soln] Ibuprofen [Motrin] 400 mg PO Q6HR PRN 03/24/21 09/09/22 History Zinc 50 mg PO DAILY 03/24/21 09/09/22 History Cholecalciferol [Vitamin D3 (25 25 mcg PO DAILY #30 tablet 03/26/21 09/09/22 Rx Mcg = 1000 Iu)] Acetaminophen Suppository [Tylenol 650 mg RECTAL Q4H PRN 09/09/22 09/09/22 History Suppository] Acetaminophen [Tylenol 8 Hour] 650 mg PO Q4H PRN 09/09/22 09/09/22 History Carboxymethylcellulose Sodium 2 drop BOTH EYES DIRECTED PRN 09/09/22 09/09/22 History [Thera Tears] Dorzolamide 2% [Trusopt 2%] 1 drop BOTH EYES BID@0600,1700 09/09/22 09/09/22 History Ensure Enlive 120 ml PO TID@0800,1200,1700 09/09/22 09/09/22 History Magnesium Hydroxide [Milk of 2,400 mg PO DAILY PRN 09/09/22 09/09/22 History Magnesia] Na Phos,M-B/Na Phos,Di-Ba [Fleet 133 ml RECTAL DAILY PRN 09/09/22 09/09/22 History Adult] Netarsudil Mesylat/Latanoprost 1 drop BOTH EYES HS 09/09/22 09/09/22 History [Rocklatan 0.02%-0.005% Eye Drp] Tamsulosin HCl [Flomax] 0.4 mg PO DAILY 09/09/22 09/09/22 History Valproic Acid Oral Soln [Depakene 500 mg PO TID@0800,1400,2100 09/09/22 09/09/22 History Syrup] bisacodyL [Dulcolax] 10 mg RECTAL DAILY PRN 09/09/22 09/09/22 History risperiDONE [risperiDONE ODT] 1 mg PO DAILY@1700 09/09/22 09/09/22 History Metoprolol Tartrate [Lopressor] 25 mg PO BID #60 tab 09/12/22 Rx Potassium Chloride ER [K-Dur 20] 20 meq PO DAILY 7 Days #7 tab 09/12/22 Rx cefUROXime axetiL [Ceftin] 500 mg PO BID 10 Days #20 tab 09/12/22 Rx Allergies Allergy/AdvReac Type Severity Reaction Status Date / Time No Known Allergies Allergy Verified 09/09/22 06:59 Physical Exam Vitals: Vital Signs Temp Pulse Resp BP Pulse Ox 09/09/22 09:24 105 H 18 121/68 99 09/09/22 09:00 84 16 109/67 09/09/22 08:30 83 18 93/57 09/09/22 08:00 70 16 91/71 09/09/22 07:30 87 18 102/67 09/09/22 07:00 89 18 86/55 09/09/22 06:30 88 29 H 99/58 97 09/09/22 06:00 85 18 91/64 83 L 09/09/22 05:00 101 F H 84 20 89/67 97 09/09/22 04:00 90 20 98/56 95 09/09/22 03:30 89 22 94/57 96 09/09/22 03:00 84 18 98/60 93 L 09/09/22 02:30 88 16 95/55 98 09/09/22 02:00 93 17 98/63 98 09/09/22 01:45 88 101/60 95 09/09/22 01:30 108 H 19 102/71 96 09/09/22 01:15 102 H 16 113/71 83 L 09/09/22 01:00 105 H 24 113/64 83 L 09/09/22 00:45 98.3 F 101 H 18 113/64 91 L 09/09/22 00:43 77 L Intake and Output 09/08/22 09/09/22 09/09/22 22:59 06:59 14:59 Other: Weight 64.864 kg GENERAL DESCRIPTION: Elderly male lying in bed, no distress. No tachypnea or accessory muscle of respiration use. HEENT: Shows Pallor , no scleral icterus. Oral mucous membrane is dry. NECK: Trachea central, no thyromegaly. LUNGS: Unlabored breathing. Decreased breath sounds at bases HEART: S1, S2, regular rate and rhythm. No loud murmur ABDOMEN: Soft, no tenderness , guarding or rigidity EXTREMITIES: No edema of feet. SKIN: No rash, no masses palpable. NEUROLOGICAL: The patient is sleepy and lethargic orientation could not be determined Results CBC & Chem 7: 09/11/22 06:46 09/12/22 07:52 Labs: Abnormal Lab Results - Last 24 Hours (Table) 09/09/22 09/09/22 09/09/22 Range/Units 00:55 00:55 00:55 RBC 3.46 L (4.30-5.90) m/uL Hgb 10.5 L (13.0-17.5) gm/dL Hct 30.8 L (39.0-53.0) % Neutrophils # 7.8 H (1.3-7.7) k/uL Sodium 133 L (137-145) mmol/L BUN 33 H (9-20) mg/dL Calcium 8.2 L (8.4-10.2) mg/dL Total Protein 6.1 L (6.3-8.2) g/dL Albumin 3.1 L (3.5-5.0) g/dL Urine Protein 1+ H (Negative) Urine Blood Moderate H (Negative) Ur Leukocyte Esterase Large H (Negative) Urine RBC 73 H (0-5) /hpf Urine WBC >182 H (0-5) /hpf Urine WBC Clumps Many H (None) /hpf Urine Bacteria Many H (None) /hpf Hyaline Casts 24 H (0-2) /lpf Microbiology - Last 24 Hours (Table) 09/09/22 00:55 Urine Culture - Preliminary Urine,Voided Assessment and Plan (1) Sepsis Status: Acute Code(s): A41.9 - SEPSIS, UNSPECIFIED ORGANISM SNOMED Code(s): 75856051 (2) UTI (urinary tract infection) Status: Acute Code(s): N39.0 - URINARY TRACT INFECTION, SITE NOT SPECIFIED SNOMED Code(s): 35064139 Plan: 1patient with a hospital with sepsis in this patient who did have a fever tachycardia source likely catheter associated UTI likely from enteric gram- negative pathogen patient abdominal soft medical examination no evidence of any definite pneumonia on the chest x-ray and the patient did have a sacral p ressure ulcer which was noticed to be healed on today's evaluation with no evidence of any cellulitis 2-we will get the patient Rocephin 2 g daily while waiting for the culture to finalize 3-gentle IV fluid We will follow on clinical condition and cultures to further adjust medication if needed Thank you for this consultation we will follow the patient along with you Time with Patient: Greater than 30
[2022-09-09] MEDS: VALPROIC ACID ORAL SOLN 250 MG/5 ML CUP PO SCH ×2 (19:25→23:17)
[2022-09-09] MEDS ORDERED: VANCOMYCIN 1,000 MG in SODIUM CHLORIDE 0.9% 250 ML IVPB SCH (21:00)
[2022-09-09] MEDS: Netarsudil Mesylat/Latanoprost [Rocklatan 0.02%-0.005% Eye Drp] 2.5 ML BOTH EYES SCH (23:17)
[2022-09-09] MEDS: DORZOLAMIDE HCL 2% DROPS 10 ML BTL BOTH EYES SCH (23:17)
[2022-09-09] MEDS: BRIMONIDINE TARTRATE 0.2% DROPS 5 ML BTL BOTH EYES SCH (23:17)
[2022-09-09] MEDS ORDERED: DILTIAZEM DRIP BOLUS FROM BAG 1 MG SOLN IV ONE (23:30)
[2022-09-09] MEDS: DILTIAZEM 125 MG in SODIUM CHLORIDE 0.9% 100 ML IV SCH (23:50)
[2022-09-10] MEDS: risperiDONE ODT 1 MG TAB PO SCH ×3 (00:03→17:36)
[2022-09-10] MEDS: ACETAMINOPHEN TAB 325 MG TAB PO PRN ×3 (01:03→23:56)
[2022-09-10] MEDS: DORZOLAMIDE HCL 2% DROPS 10 ML BTL BOTH EYES SCH ×2 (05:55→17:37)
[2022-09-10] MEDS: SODIUM CHLORIDE 0.9% 1,000 ML IV SCH ×3 (05:56→15:11)
[2022-09-10] MEDS ORDERED: HEPARIN SODIUM 1,000 UN/ML (10ML VL) IV ONE (07:26)
[2022-09-10] MEDS ORDERED: HEPARIN SODIUM 1,000 UN/ML (10ML VL) IV PRN (07:26)
[2022-09-10] MEDS ORDERED: HEPARIN SOD,PORK IN 0.45% NACL 25,000 UNIT in 0.45% NACL 1 250ML.BAG IV SCH (07:30)
[2022-09-10] MEDS: TAMSULOSIN 0.4 MG CAP.ER.24H PO SCH (08:23)
[2022-09-10] MEDS: CHOLECALCIFEROL 25 MCG (1000 IU) TABLET PO SCH (08:35)
[2022-09-10] MEDS: METOPROLOL TARTRATE 25 MG TAB PO SCH ×2 (08:35→20:06)
[2022-09-10] MEDS: ZINC SULFATE 220 MG CAP PO SCH (08:35)
[2022-09-10] MEDS: VALPROIC ACID ORAL SOLN 250 MG/5 ML CUP PO SCH ×3 (08:37→20:06)
[2022-09-10] MEDS: BRIMONIDINE TARTRATE 0.2% DROPS 5 ML BTL BOTH EYES SCH ×2 (08:37→17:38)
--- NOTE | 2022-09-10 08:40 | P.CRDCN ---
History of Present Illness Consult date: 09/10/22 Consult reason: atrial fibrillation (New onset) History of present illness: History of present illness: This is a 76-year-old male with no known cardiac history. He does have a history of hypertension, dementia, benign brain tumor, remote history of alcohol abuse. Patient presented from a [facility] due to fever and low blood pressure, generalized weakness and decreased appetite. He was found to be in atrial fibrillation with RVR and was started on Cardizem drip. Heparin was held due to patient having frequent falls. Patient is presently nonverbal but is normally oriented 1. EKG atrial fibrillation with ventricular rate of 158 Chest x-ray: Left linear atelectasis WBC 9.9, hemoglobin 10.5, platelet count 270. Sodium 133, potassium 4.7. BUN 33 creatinine 1.09. Blood sugar 98. Calcium 8.2. Liver function tests within normal limits. Albumin 3.1. Urinalysis positive for infection. Influenza A, influenza B, RSV, Covid 19 not detected Home cardiac medications: Amlodipine 2.5 mg daily Review Of Systems: At the time of my evaluation: Unable to obtain due to patient's mental status. Physical examination: Gen: This is a 76-year-old male. He is resting in bed and appears to be in no acute distress VS: reviewed HEENT: Head is atraumatic, normocephalic. Pupils equal, round. Sclerae is anicteric. NECK: Supple. No JVD. . LUNGS: Clear to auscultation. No wheezes or rhonchi. No intercostal retractions. HEART: Regular rate and rhythm. No murmur. ABDOMEN: Soft No tenderness. EXTREMITIES: No pedal edema. No calf tenderness. Assessment: New-onset A. fib with RVR, paroxysmal atrial fibrillation brought on by sepsis UTI with sepsis Hypertension Dementia Brain tumor Plan: Discontinue Cardizem drip and start patient on Lopressor 25 mg twice daily No plan for anticoagulation due to frequent falls Continue treatment for sepsis Obtain 2-D echocardiogram and Doppler study to assess cardiac structure and function Further recommendations to follow based upon clinical course Thank you kindly for this consultation. Nurse practitioner note has been reviewed, I agree with documented findings and plan of care. Patient was seen and examined. 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-retinal problem with surgery History of Any Multi-Drug Resistant Organisms: None Reported Past Surgical History: Tonsillectomy Additional Past Surgical History / Comment(s): R eye surgery for a retinal problem Past Anesthesia/Blood Transfusion Reactions: No Reported Reaction Smoking Status: Former smoker - Past Family History Mother History Unknown: Yes Family Medical History: CVA/TIA Medications and Allergies Home Medications Medication Instructions Recorded Confirmed Type Brimonidine Tartrate [Alphagan P 1 drop BOTH EYES BID@0800,1700 03/24/21 09/09/22 History 0.2% Ophth Soln] Ibuprofen [Motrin] 400 mg PO Q6HR PRN 03/24/21 09/09/22 History Zinc 50 mg PO DAILY 03/24/21 09/09/22 History Cholecalciferol [Vitamin D3 (25 25 mcg PO DAILY #30 tablet 03/26/21 09/09/22 Rx Mcg = 1000 Iu)] Acetaminophen Suppository [Tylenol 650 mg RECTAL Q4H PRN 09/09/22 09/09/22 History Suppository] Acetaminophen [Tylenol 8 Hour] 650 mg PO Q4H PRN 09/09/22 09/09/22 History Carboxymethylcellulose Sodium 2 drop BOTH EYES DIRECTED PRN 09/09/22 09/09/22 History [Thera Tears] Dorzolamide 2% [Trusopt 2%] 1 drop BOTH EYES BID@0600,1700 09/09/22 09/09/22 History Ensure Enlive 120 ml PO TID@0800,1200,1700 09/09/22 09/09/22 History Magnesium Hydroxide [Milk of 2,400 mg PO DAILY PRN 09/09/22 09/09/22 History Magnesia] Na Phos,M-B/Na Phos,Di-Ba [Fleet 133 ml RECTAL DAILY PRN 09/09/22 09/09/22 His tory Adult] Netarsudil Mesylat/Latanoprost 1 drop BOTH EYES HS 09/09/22 09/09/22 History [Rocklatan 0.02%-0.005% Eye Drp] Tamsulosin HCl [Flomax] 0.4 mg PO DAILY 09/09/22 09/09/22 History Valproic Acid Oral Soln [Depakene 500 mg PO TID@0800,1400,2100 09/09/22 09/09/22 History Syrup] amLODIPine [Norvasc] 2.5 mg PO DAILY 09/09/22 09/09/22 History bisacodyL [Dulcolax] 10 mg RECTAL DAILY PRN 09/09/22 09/09/22 History risperiDONE [risperiDONE ODT] 1 mg PO DAILY@1700 09/09/22 09/09/22 History Allergies Allergy/AdvReac Type Severity Reaction Status Date / Time No Known Allergies Allergy Verified 09/09/22 06:59 Physical Exam Vitals: Vital Signs Temp Pulse Pulse Resp BP BP Pulse Ox 09/10/22 05:50 101.2 F H 09/10/22 03:57 99.6 F 90 19 101/61 95 09/10/22 02:00 98.8 F 09/10/22 01:15 103.5 F H 131 H 21 126/76 94 L 09/10/22 00:45 126 H 18 149/77 95 09/10/22 00:00 125 H 24 125/85 94 L 09/09/22 23:00 99.4 F 143 H 16 115/80 94 L 09/09/22 15:00 101 H 16 122/85 94 L 09/09/22 14:30 94 16 137/83 96 09/09/22 14:00 95 18 150/69 95 09/09/22 13:30 93 18 131/75 95 09/09/22 13:00 96 18 125/73 96 09/09/22 12:30 91 18 111/71 96 09/09/22 12:00 94 18 96 09/09/22 11:30 89 18 112/71 97 09/09/22 11:00 96 18 97 09/09/22 10:30 94 16 126/83 95 09/09/22 10:00 105 H 20 96 09/09/22 09:30 89 16 121/68 98 09/09/22 09:24 105 H 18 121/68 99 09/09/22 09:00 84 16 109/67 09/09/22 08:30 83 18 93/57 09/09/22 08:00 70 16 91/71 09/09/22 07:30 87 18 102/67 Intake and Output 09/09/22 09/10/22 09/10/22 22:59 06:59 14:59 Output Total 600 Balance -600 Output: Urine 600 Other: Voiding Method Indwelling Catheter Weight 64.864 kg Results 09/09/22 00:55 09/09/22 00:55 Current Medications Generic Name Dose Route Start Last Admin Trade Name Freq PRN Reason Stop Dose Admin Acetaminophen 650 mg 09/09/22 03:59 Acetaminophen Tab 325 Mg Tab PO Q6HR PRN Mild Pain or Fever > 100.5 Acetaminophen 650 mg 09/09/22 10:38 09/10/22 05:54 Acetaminophen Tab 325 Mg Tab PO 650 mg Q4H PRN Administration GENERAL DISCOMFORT Artificial Tears 2 drops 09/09/22 10:38 Artificial Tears-Hypromellose Drops 15 Ml Btl BOTH EYES DAILY PRN Dry Eye(s) Brimonidine Tartrate 1 drops 09/09/22 17:00 09/09/22 23:17 Brimonidine Tartrate 0.2% Drops 5 Ml Btl BOTH EYES Not Given BID@0800,1700 [facility]ICE Cholecalciferol 25 mcg 09/10/22 09:00 Cholecalciferol 25 Mcg (1000 Iu) Tablet PO DAILY [facility]ICE Dorzolamide HCl 1 drops 09/09/22 17:00 09/10/22 05:55 Dorzolamide Hcl 2% Drops 10 Ml Btl BOTH EYES 1 drops BID@0600,1700 [facility] Administration Sodium Chloride 1,000 mls @ 130 mls/hr 09/09/22 03:30 09/10/22 05:56 Saline 0.9% IV 130 mls/hr .Q7H42M [facility] Administration Vancomycin HCl 1,000 mg/ 250 mls @ 125 mls/hr 09/09/22 21:00 09/09/22 23:50 Sodium Chloride IVPB 125 mls/hr Q16H [facility] Administration Ceftriaxone Sodium 2 gm/ 50 mls @ 100 mls/hr 09/10/22 09:00 Sodium Chloride IVPB 09/14/22 09:29 Q24HR [facility] Protocol Diltiazem HCl 125 mg/ Sodium 125 mls @ 5 mls/hr 09/09/22 23:45 09/09/22 23:50 Chloride IV 5 mg/hr .Q24H [facility]ICE 5 mls/hr Administration 5 MG/HR Ibuprofen 400 mg 09/09/22 03:59 Ibuprofen 400 Mg Tab PO Q6HR PRN Mild Pain or Fever > 100.5 Naloxone HCl 0.2 mg 09/09/22 03:59 Naloxone 0.4 Mg/Ml 1 Ml Vial IV Q2M PRN Opioid Reversal Netarsudil Mesylat/ 1 drop 09/09/22 21:00 09/09/22 23:17 Latanoprost [ BOTH EYES Not Given Rocklatan 0.02%-0. HS DENICE 005% Eye Drp] 2.5 Ml Risperidone 1 mg 09/09/22 17:00 09/10/22 00:09 Risperidone Odt 1 Mg Tab PO Not Given DAILY@1700 [facility] Tamsulosin HCl 0.4 mg 09/10/22 09:00 Tamsulosin 0.4 Mg Cap.Er.24h PO DAILY [facility] Valproic Acid 500 mg 09/09/22 14:00 09/09/22 23:17 Valproic Acid Oral Soln 250 Mg/5 Ml Cup PO Not Given TID@0800,1400,2100 [facility] Zinc Sulfate 220 mg 09/10/22 09:00 Zinc Sulfate 220 Mg Cap PO DAILY [facility] Intake and Output 09/09/22 09/10/22 09/10/22 22:59 06:59 14:59 Output Total 600 Balance -600 Output: Urine 600 Other: Voiding Method Indwelling Catheter Weight 64.864 kg 09/09/22 00:55 09/09/22 00:55
[2022-09-10 09:30] LABS: African American GFR (CKD) >90 (>60 ml/min/1.73 sqM); Non-African American GFR(CKD) >90 (>60 ml/min/1.73 sqM)
--- NOTE | 2022-09-10 12:03 | CA ---
Transthoracic Echo Report Name: Garrick Cárdenas Age: 76 Gender: M : 1945 Exam Date: 09/10/2022 07:46 Exam Location: [place] [facility] Ht (in): 69 Wt (lb): 143 Ordering Physician: Estephania Cary Attending/Referring Phys: [id number], Raeann [employer] Receiving Clerk [place] Procedure CPT: Indications: LVF Cardiac Hx: Technical Quality: Good Contrast 1: Total Dose (mL): Contrast 2: Total Dose (mL): MEASUREMENTS (Male / Female) Normal Values 2D ECHO LV Diastolic Diameter PLAX 3.1 cm 4.2 - 5.9 / 3.9 - 5.3 cm LV Systolic Diameter PLAX 3.1 cm IVS Diastolic Thickness 0.5 cm 0.6 - 1.0 / 0.6 - 0.9 cm LVPW Diastolic Thickness 3.0 cm 0.6 - 1.0 / 0.6 - 0.9 cm LV Relative Wall Thickness 1.1 RV Internal Dim ED PLAX 3.1 cm LVOT Diameter 2.4 cm Aortic Root Diameter 4.0 cm LA Systolic Diameter LX 3.8 cm 3.0 - 4.0 / 2.7 - 3.8 cm LV Diastolic Volume MOD BP 56.7 cm??? 67 - 155 / 56 - 104 cm??? LV Systolic Volume MOD BP 24.0 cm??? 22 - 58 / 19 - 49 cm??? LV Ejection Fraction MOD BP 57.7 % >= 55 % LV Diastolic Volume MOD 4C 59.1 cm??? LV Systolic Volume MOD 4C 17.9 cm??? LV Ejection Fraction MOD 4C 69.6 % LV Diastolic Length 4C 6.9 cm LV Systolic Length 4C 5.9 cm LV Diastolic Volume MOD 2C 53.7 cm??? LV Systolic Volume MOD 2C 31.9 cm??? LV Ejection Fraction MOD 2C 40.7 % LV Diastolic Length 2C 7.1 cm LV Systolic Length 2C 6.0 cm LA Volume 40.0 cm??? 18 - 58 / 22 - 52 cm??? DOPPLER AV Peak Velocity 146.1 cm/s AV Peak Gradient 8.5 mmHg AI Peak Velocity 342.7 cm/s AI Peak Gradient 47.0 mmHg AI Pressure Half Time 712.1 ms LVOT Peak Velocity 100.7 cm/s LVOT Peak Gradient 4.1 mmHg AV Area Cont Eq pk 3.2 cm??? MR Peak Velocity 188.1 cm/s MR Peak Gradient 14.2 mmHg Mitral E Point Velocity 84.2 cm/s Mitral A Point Velocity 84.2 cm/s Mitral E to A Ratio 1.0 MV Deceleration Time 168.5 ms MV E' Velocity 10.0 cm/s Mitral E to MV E' Ratio 8.5 TR Peak Velocity 251.2 cm/s TR Peak Gradient 25.2 mmHg Right Ventricular Systolic Press 30.3 mmHg FINDINGS Left Ventricle Left ventricular ejection fraction is estimated at 55-60 %. Right Ventricle Normal right ventricular size. Right Atrium Normal right atrial size. Left Atrium Normal left atrial size. Mitral Valve Grossly Normal MV.no mitral regurgitation. Aortic Valve Aortic valve not well visualized. Mld to moderate AI. Tricuspid Valve Structurally normal tricuspid valve. Mild to Moderate tricuspid regurgitation. RVSP= 33mmhg Pulmonic Valve Pulmonic valve not well visualized. No pulmonic regurgitation. Pericardium Normal pericardium. Aorta Ao root doug=3.8cm. Ascending Ao doug= 41cm CONCLUSIONS Normal LV size and systolic function. There is mild to moderate aortic and mild to moderate tricuspid regurgitation. No significant pulmonary hypertension no pericardial effusion Previewed by: Dr. Dez Angela MD (Electronically Signed) Final Date: 10 Sep 2022 12:03
--- NOTE | 2022-09-10 13:42 | US ---
EXAMINATION TYPE: US kidneys/renal and bladder DATE OF EXAM: 09/10/2022 COMPARISON: NONE CLINICAL INDICATION: Male, 76 years old with history of uti and bacteremia; UTI and bacteremia. EXAM MEASUREMENTS: Right Kidney: 12.1 x 5.9 x 5.6 cm Left Kidney: 10.8 x 5.3 x 5.4 cm Right Kidney: Anechoic area seen lower pole: 3.3 x 3.6 x 3.5 cm. Left Kidney: Slightly limited due to gas. Bladder: Unable to evaluate, patient had catheter in place. Bilateral Jets seen: No There is 3.6 cm simple appearing thin-walled cyst lower pole of the right kidney. Suboptimal study bu t no hydronephrosis identified bilaterally. Green catheter balloon is seen in bladder. IMPRESSION: Suboptimal study but no hydronephrosis is evident bilaterally.
[2022-09-10] MEDS: Netarsudil Mesylat/Latanoprost [Rocklatan 0.02%-0.005% Eye Drp] 2.5 ML BOTH EYES SCH (20:07)
[2022-09-10] MEDS: DILTIAZEM 125 MG in SODIUM CHLORIDE 0.9% 100 ML IV SCH ×2 (22:18→23:21)
[2022-09-10] MEDS ORDERED: DILTIAZEM DRIP BOLUS FROM BAG 1 MG SOLN IV ONE (23:08)
[2022-09-11] MEDS: SODIUM CHLORIDE 0.9% 1,000 ML IV SCH ×4 (04:07→23:53)
[2022-09-11] MEDS: DORZOLAMIDE HCL 2% DROPS 10 ML BTL BOTH EYES SCH ×2 (04:08→17:08)
[2022-09-11 07:07] LABS: Basophils % (A) 0 %; Eosinophils % (A) 0 %; HCT 28.3 % (39.0-53.0); HGB 9.3 gm/dL (13.0-17.5); Lymphocytes # (A) 1.1 k/uL (1.0-4.8); Lymphocytes % (A) 15 %; MCH 30.6 pg (25.0-35.0); MCHC 32.8 g/dL (31.0-37.0); MCV 93.2 fL (80.0-100.0); Mean Platelet Volume 7.8; Monocytes # (A) 0.3 k/uL (0-1.0); Monocytes % (A) 5 %; Neutrophils # (A) 5.6 k/uL (1.3-7.7); Neutrophils % (A) 77 %; Platelet Count 189 k/uL (150-450); RBC 3.04 m/uL (4.30-5.90); RDW 13.5 % (11.5-15.5); WBC 7.3 k/uL (3.8-10.6)
[2022-09-11 07:16] LABS: INR 1.2 (<1.2); Prothrombin Time 12.1 sec (9.0-12.0)
[2022-09-11 07:29] LABS: African American GFR (CKD) >90 (>60 ml/min/1.73 sqM); Anion Gap 11 mmol/L; Blood Urea Nitrogen 17 mg/dL (9-20); Carbon Dioxide 24 mmol/L (22-30); Chloride 106 mmol/L (98-107); Glucose 102 mg/dL (74-99); Non-African American GFR(CKD) 89 (>60 ml/min/1.73 sqM); Potassium 3.4 mmol/L (3.5-5.1); Sodium 141 mmol/L (137-145)
[2022-09-11 07:43] LABS: Calcium 7.7 mg/dL (8.4-10.2)
[2022-09-11] MEDS: TAMSULOSIN 0.4 MG CAP.ER.24H PO SCH (08:41)
[2022-09-11] MEDS: ZINC SULFATE 220 MG CAP PO SCH (08:41)
[2022-09-11] MEDS: METOPROLOL TARTRATE 25 MG TAB PO SCH ×2 (08:41→20:11)
[2022-09-11] MEDS: CHOLECALCIFEROL 25 MCG (1000 IU) TABLET PO SCH (08:41)
[2022-09-11] MEDS: VALPROIC ACID ORAL SOLN 250 MG/5 ML CUP PO SCH ×3 (08:42→20:11)
[2022-09-11] MEDS: BRIMONIDINE TARTRATE 0.2% DROPS 5 ML BTL BOTH EYES SCH ×2 (08:42→17:08)
--- NOTE | 2022-09-11 12:51 | P.PN ---
Subjective Progress Note Date: 09/10/22 Principal diagnosis: UTI and bacteremia Patient is a 76-year-old male with a past medical his significant for dementia history of urinary retention requiring indwelling Green catheter and a UTI patient has been sent to the ER for evaluation of fever and low blood pressu re, patient was noticed to be septic from urinary tract infection and did have a bacteremia from it On today's evaluation that is 09/10/2022, the patient did have a fever this morning of 101.2F, the patient is currently breathing comfortably and is being fed by family member no choking of food vomiting or diarrhea has been reported patient was unable to provide any history Objective - Vital Signs Vital signs: Vital Signs Temp 99.1 F 09/10/22 08:00 Pulse 95 09/10/22 08:00 Resp 20 09/10/22 08:00 BP 107/59 09/10/22 08:00 Pulse Ox 94 L 09/10/22 08:00 FiO2 Intake & Output 09/09/22 09/10/22 09/10/22 18:59 06:59 18:59 Intake Total 45.25 Output Total 600 Balance -600 45.25 Weight 64.864 kg Intake: Intake, IV Titration 45.25 Amount Diltiazem 125 mg In 45.25 Sodium Chloride 0.9% 100 ml @ 5 MG/HR 5 mls/hr IV .Q24H [facility] Rx#:[id number] Output: Urine 600 Other: Voiding Method Indwelling Catheter Indwelling Catheter - Exam GENERAL DESCRIPTION: An elderly male lying in bed in no distress RESPIRATORY SYSTEM: Unlabored breathing , decreased breath sounds at bases HEART: S1 S2 regular rate and rhythm , ABDOMEN: Soft , no tenderness EXTREMITIES: No edema feet - Labs CBC & Chem 7: 09/11/22 06:46 09/11/22 06:46 Labs: Microbiology - Last 24 Hours (Table) 09/09/22 00:55 Urine Culture - Preliminary Urine,Voided Gram Neg Bacilli 09/09/22 01:00 Blood Culture Gram Stain - Preliminary Blood Blood Culture - Preliminary Gram Neg Bacilli 09/09/22 01:10 Blood Culture Gram Stain - Preliminary Blood Blood Culture - Preliminary Proteus Species Assessment and Plan (1) Gram-negative bacteremia Current Visit: Yes Status: Acute Code(s): R78.81 - BACTEREMIA SNOMED Code(s): 712395196137 (2) Sepsis Current Visit: Yes Status: Acute Code(s): A41.9 - SEPSIS, UNSPECIFIED ORGANISM SNOMED Code(s): 05422132 (3) UTI (urinary tract infection) Current Visit: Yes Status: Acute Code(s): N39.0 - URINARY TRACT INFECTION, SITE NOT SPECIFIED SNOMED Code(s): 09309711 Plan: 1patient with a hospital with sepsis in this patient who did have a fever tachycardia source likely catheter associated UTI likely from enteric gram- negative pathogen patient abdominal soft medical examination no evidence of any definite pneumonia on the chest x-ray and the patient did have a sacral pressu re ulcer which was noticed to be healed on evaluation with no evidence of any cellulitis 2-patient did have gram-negative bacteremia source is likely urinary 3-we will obtain ultrasound of the kidney moderate to make sure no evidence of any structural abnormality 4-patient to continue with Rocephin 2 g daily while waiting for the culture to finalize, no need for vancomycin which has been discontinued \ Time with Patient: Less than 30
--- NOTE | 2022-09-11 12:52 | P.PN ---
Subjective Progress Note Date: 09/11/22 Principal diagnosis: UTI and bacteremia Patient is a 76-year-old male with a past medical his significant for dementia history of urinary retention requiring indwelling Green catheter and a UTI patient has been sent to the ER for evaluation of fever and low blood pressu re, patient was noticed to be septic from urinary tract infection and did have a bacteremia from it On today's evaluation that is 09/11/2022, the patient overall fever pattern has improved and did have a low-grade fever 100.7 last night is afebrile this morning , the patient is currently breathing comfortably on room air and is being fed lunch by family member no choking of food vomiting or diarrhea has been reported patient was unable to provide any history Objective - Vital Signs Vital signs: Vital Signs Temp 97.7 F 09/11/22 08:00 Pulse 90 09/11/22 08:00 Resp 16 09/11/22 08:00 BP 136/75 09/11/22 08:00 Pulse Ox 97 09/11/22 08:00 FiO2 Intake & Output 09/10/22 09/11/22 09/11/22 18:59 06:59 18:59 Intake Total 395.25 225.583 Output Total 500 600 525 Balance -104.75 -600 -299.417 Intake: Intake, IV Titration 45.25 105.583 Amount Diltiazem 125 mg In 105.583 Sodium Chloride 0.9% 100 ml @ 10 MG/HR 10 mls/hr IV .[id number] [facility] Rx#: [id number] Diltiazem 125 mg In 45.25 Sodium Chloride 0.9% 100 ml @ 5 MG/HR 5 mls/hr IV .Q24H [facility] Rx#:[id number] Oral 350 120 Output: Urine 500 600 525 Other: Voiding Method Indwelling Catheter Indwelling Catheter Indwelling Catheter - Exam GENERAL DESCRIPTION: An elderly male lying in bed in no distress RESPIRATORY SYSTEM: Unlabored breathing , decreased breath sounds at bases HEART: S1 S2 regular rate and rhythm , ABDOMEN: Soft , no tenderness EXTREMITIES: No edema feet - Labs CBC & Chem 7: 09/11/22 06:46 09/11/22 06:46 Labs: Abnormal Lab Results - Last 24 Hours (Table) 09/11/22 09/11/22 09/11/22 Range/Units 06:46 06:46 06:46 RBC 3.04 L (4.30-5.90) m/uL Hgb 9.3 L (13.0-17.5) gm/dL Hct 28.3 L (39.0-53.0) % PT 12.1 H (9.0-12.0) sec INR 1.2 H (<1.2) Potassium 3.4 L (3.5-5.1) mmol/L Glucose 102 H (74-99) mg/dL Calcium 7.7 L (8.4-10.2) mg/dL Microbiology - Last 24 Hours (Table) 09/09/22 00:55 Urine Culture - Final Urine,Voided Proteus mirabilis 09/09/22 01:00 Blood Culture Gram Stain - Final Blood Blood Culture - Final Proteus mirabilis 09/09/22 01:10 Blood Culture Gram Stain - Final Blood Blood Culture - Final Proteus mirabilis Assessment and Plan (1) Gram-negative bacteremia Current Visit: Yes Status: Acute Code(s): R78.81 - BACTEREMIA SNOMED Code(s): 837791741858 (2) Sepsis Current Visit: Yes Status: Acute Code(s): A41.9 - SEPSIS, UNSPECIFIED ORGANISM SNOMED Code(s): 65973824 (3) UTI (urinary tract infection) Current Visit: Yes Status: Acute Code(s): N39.0 - URINARY TRACT INFECTION, SITE NOT SPECIFIED SNOMED Code(s): 37292194 Plan: 1patient with a hospital with sepsis in this patient who did have a fever tachycardia source likely catheter associated UTI likely from enteric gram- negative pathogen patient abdominal soft medical examination no evidence of any definite pneumonia on the chest x-ray and the patient did have a sacral pressure ulcer which was noticed to be healed on evaluation with no evidence of any cellulitis 2-patient did have gram-negative bacteremia source, which has been finalized as Proteus and is growing the same pathogen and the blood 3-ultrasound of the kidney did not show any evidence of any structural abnormality 4-patient to continue with Rocephin 2 g daily and monitor critical course closely
[2022-09-11] MEDS: DILTIAZEM 125 MG in SODIUM CHLORIDE 0.9% 100 ML IV SCH (13:19)
--- NOTE | 2022-09-11 14:34 | P.PN ---
Subjective Progress Note Date: 09/11/22 History of present illness: This is a 76-year-old male with no known cardiac history. He does have a hist ory of hypertension, dementia, benign brain tumor, remote history of alcohol abuse. Patient [facility] from a [facility] due to fever and low blood pressure, generalized weakness and decreased appetite. He was found to be in atrial fibrillation with RVR and was started on Cardizem drip. Heparin was held due to patient having frequent falls. Patient is presently nonverbal but is normally oriented 1. EKG atrial fibrillation with ventricular rate of 158 Chest x-ray: Left linear atelectasis WBC 9.9, hemoglobin 10.5, platelet count 270. Sodium 133, potassium 4.7. BUN 33 creatinine 1.09. Blood sugar 98. Calcium 8.2. Liver function tests within normal limits. Albumin 3.1. Urinalysis positive for infection. Influenza A, influenza B, RSV, Covid 19 not detected Home cardiac medications: Amlodipine 2.5 mg daily 09/11 Patient is seen today in follow-up. He remains in atrial fibrillation with ventricular rate in the 80s. Cardizem drip will be discontinued and patient continued on Toprol-XL. No plan for anticoagulation due to frequent falls. Physical examination: Gen: This is a 76-year-old male. He is resting in bed and appears to be in no acute distress VS: reviewed HEENT: Head is atraumatic, normocephalic. Pupils equal, round. Sclerae is anicteric. NECK: Supple. No JVD. . LUNGS: Clear to auscultation. No wheezes or rhonchi. No intercostal retractions. HEART: Regular rate and rhythm. No murmur. ABDOMEN: Soft No tenderness. EXTREMITIES: No pedal edema. No calf tenderness. Assessment: New-onset A. fib with RVR, paroxysmal atrial fibrillation brought on by sepsis UTI with sepsis Hypertension Dementia Brain tumor Plan: Continue patient on Lopressor 25 mg twice daily No plan for anticoagulation due to frequent falls Continue treatment for sepsis Cardiology will sign off and follow on an as-needed basis. Please reconsult for any new concerns. Nurse practitioner note has been reviewed, I agree with documented findings and plan of care. Patient was seen and examined. Objective - Vital Signs Vital signs: Vital Signs Temp 97.7 F 09/11/22 08:00 Pulse 90 09/11/22 08:00 Resp 16 09/11/22 08:00 BP 136/75 09/11/22 08:00 Pulse Ox 97 09/11/22 08:00 FiO2 Intake & Output 09/10/22 09/11/22 09/11/22 18:59 06:59 18:59 Intake Total 395.25 221.333 Output Total 500 600 525 Balance -104.75 -600 -303.667 Intake: Intake, IV Titration 45.25 101.333 Amount Diltiazem 125 mg In 101.333 Sodium Chloride 0.9% 100 ml @ 10 MG/HR 10 mls/hr IV .[id number] [facility] Rx#: [id number] Diltiazem 125 mg In 45.25 Sodium Chloride 0.9% 100 ml @ 5 MG/HR 5 mls/hr IV .Q24H [facility] Rx#:[id number] Oral 350 120 Output: Urine 500 600 525 Other: Voiding Method Indwelling Catheter Indwelling Catheter Indwelling Catheter - Labs CBC & Chem 7: 09/11/22 06:46 09/11/22 06:46 Labs: Abnormal Lab Results - Last 24 Hours (Table) 09/11/22 09/11/22 09/11/22 Range/Units 06:46 06:46 06:46 RBC 3.04 L (4.30-5.90) m/uL Hgb 9.3 L (13.0-17.5) gm/dL Hct 28.3 L (39.0-53.0) % PT 12.1 H (9.0-12.0) sec INR 1.2 H (<1.2) Potassium 3.4 L (3.5-5.1) mmol/L Glucose 102 H (74-99) mg/dL Calcium 7.7 L (8.4-10.2) mg/dL Microbiology - Last 24 Hours (Table) 09/09/22 00:55 Urine Culture - Preliminary Urine,Voided Gram Neg Bacilli 09/09/22 01:00 Blood Culture Gram Stain - Preliminary Blood Blood Culture - Preliminary Gram Neg Bacilli
[2022-09-11] MEDS: risperiDONE ODT 1 MG TAB PO SCH (17:08)
[2022-09-11] MEDS: Netarsudil Mesylat/Latanoprost [Rocklatan 0.02%-0.005% Eye Drp] 2.5 ML BOTH EYES SCH (20:09)
[2022-09-11] MEDS: ACETAMINOPHEN TAB 325 MG TAB PO PRN (20:11)
[2022-09-11] MEDS ORDERED: POTASSIUM CHLORIDE ER 20 MEQ TAB.ER PO ONE (23:15)
[2022-09-12] MEDS: DILTIAZEM 125 MG in SODIUM CHLORIDE 0.9% 100 ML IV SCH (04:35)
[2022-09-12] MEDS: DORZOLAMIDE HCL 2% DROPS 10 ML BTL BOTH EYES SCH ×2 (05:25→16:03)
[2022-09-12 08:52] LABS: African American GFR (CKD) >90 (>60 ml/min/1.73 sqM); Anion Gap 6 mmol/L; Blood Urea Nitrogen 10 mg/dL (9-20); Calcium 7.6 mg/dL (8.4-10.2); Carbon Dioxide 27 mmol/L (22-30); Chloride 104 mmol/L (98-107); Glucose 90 mg/dL (74-99); Non-African American GFR(CKD) >90 (>60 ml/min/1.73 sqM); Potassium 2.9 mmol/L (3.5-5.1); Sodium 137 mmol/L (137-145)
[2022-09-12] MEDS: ZINC SULFATE 220 MG CAP PO SCH (09:20)
[2022-09-12] MEDS: VALPROIC ACID ORAL SOLN 250 MG/5 ML CUP PO SCH ×2 (09:20→13:02)
[2022-09-12] MEDS: SODIUM CHLORIDE 0.9% 1,000 ML IV SCH (09:20)
[2022-09-12] MEDS: CHOLECALCIFEROL 25 MCG (1000 IU) TABLET PO SCH (09:20)
[2022-09-12] MEDS: TAMSULOSIN 0.4 MG CAP.ER.24H PO SCH (09:20)
[2022-09-12] MEDS: METOPROLOL TARTRATE 25 MG TAB PO SCH (09:20)
[2022-09-12] MEDS: BRIMONIDINE TARTRATE 0.2% DROPS 5 ML BTL BOTH EYES SCH ×2 (09:21→16:02)
[2022-09-12] MEDS ORDERED: POTASSIUM CHLORIDE ER 20 MEQ TAB.ER PO STA (12:31)
--- NOTE | 2022-09-12 12:34 | P.PN ---
Subjective Progress Note Date: 09/12/22 Principal diagnosis: UTI and bacteremia Patient is a 76-year-old male with a past medical his significant for dementia history of urinary retention requiring indwelling Green catheter and a UTI patient has been sent to the ER for evaluation of fever and low blood pressu re, patient was noticed to be septic from urinary tract infection and did have a bacteremia from it On today's evaluation that is 09/12/2022, the patient remains to be afebrile, the patient is currently breathing comfortably on room air, patient is not a good historian however he seemed to be comfortable nursing staff mention he is able to swallow without any difficulty no vomiting or diarrhea has been reported Objective - Vital Signs Vital signs: Vital Signs Temp 98.7 F 09/12/22 09:15 Pulse 86 09/12/22 09:15 Resp 17 09/12/22 09:15 BP 148/90 09/12/22 09:15 Pulse Ox 97 09/12/22 09:15 FiO2 Intake & Output 09/11/22 09/12/22 09/12/22 18:59 06:59 18:59 Intake Total 465.583 540 360 Output Total 875 700 Balance -409.417 -160 360 Intake: Intake, IV Titration 105.583 300 Amount Diltiazem 125 mg In 105.583 Sodium Chloride 0.9% 100 ml @ 10 MG/HR 10 mls/hr IV .[id number] [facility] Rx#: [id number] Sodium Chloride 0.9% 1, 300 000 ml @ 75 mls/hr IV . [id number] [facility] Rx#:[id number] Oral 360 240 360 Output: Urine 875 700 Other: Voiding Method Indwelling Catheter Indwelling Catheter Indwelling Catheter - Exam GENERAL DESCRIPTION: An elderly male lying in bed in no distress RESPIRATORY SYSTEM: Unlabored breathing , decreased breath sounds at bases HEART: S1 S2 regular rate and rhythm , ABDOMEN: Soft , no tenderness EXTREMITIES: No edema feet - Labs CBC & Chem 7: 09/11/22 06:46 09/12/22 07:52 Labs: Abnormal Lab Results - Last 24 Hours (Table) 09/12/22 Range/Units 07:52 Potassium 2.9 L (3.5-5.1) mmol/L Creatinine 0.58 L (0.66-1.25) mg/dL Calcium 7.6 L (8.4-10.2) mg/dL Microbiology - Last 24 Hours (Table) 09/09/22 00:55 Urine Culture - Final Urine,Voided Proteus mirabilis 09/09/22 01:00 Blood Culture Gram Stain - Final Blood Blood Culture - Final Proteus mirabilis 09/09/22 01:10 Blood Culture Gram Stain - Final Blood Blood Culture - Final Proteus mirabilis Assessment and Plan (1) Gram-negative bacteremia Current Visit: Yes Status: Acute Code(s): R78.81 - BACTEREMIA SNOMED Code(s): 461112988159 (2) Sepsis Current Visit: Yes Status: Acute Code(s): A41.9 - SEPSIS, UNSPECIFIED ORGANISM SNOMED Code(s): 56045290 (3) UTI (urinary tract infection) Current Visit: Yes Status: Acute Code(s): N39.0 - URINARY TRACT INFECTION, SITE NOT SPECIFIED SNOMED Code(s): 92030771 Plan: 1patient with a hospital with sepsis in this patient who did have a fever tachycardia source likely catheter associated UTI likely from enteric gram- negative pathogen patient abdominal soft medical examination no evidence of any definite pneumonia on the chest x-ray and the patient did have a sacral pressure ulcer which was noticed to be healed on evaluation with no evidence of any cellulitis 2-patient did have gram-negative bacteremia source, which has been finalized as Proteus and is growing the same pathogen and the blood 3-ultrasound of the kidney did not show any evidence of any structural abnormali ty 4-patient seemed to have her clinical improvement and will continue with Rocephin 2 g daily with a plan to finish therapy with oral Ceftin 10 days on discharge
--- NOTE | 2022-09-12 13:27 | P.PN ---
Subjective Progress Note Date: 09/10/22 patient is a 76-year-old gentleman with past medical history significant for dementia who presented to the ER because of fevers.[facility]. staff at facility was noticing patient has been spiking fevers and the blood pressure has been low.there was also complaining of lethargy and weakness. There was also low appetite. Patient has been complaining of cough. There was also sacral decub present. Because of these fevers patient was brought to the ER of [facility] lab work done in the ER showed white count 9.9, hemoglobin 10.5, platelet count 270, sodium 133, potassium 4.7, BUN 33, creatinine 1.09, calcium 8.2, UA done showed leukocyte Estrace positive, urine WBC more than 182 chest x-ray showed left basilar atelectasis patient was admitted to internal medicine service 09/10/2022 patient is currently lying in the bed. Awake alert and opens eyes with verbal stimuli. Could not provide any history. Currently on room air. patient has been afebrile.continued on ceftriaxone for urinary tract infection.urine culture showed Proteus mirabilis and blood cultures showed Proteus mirabilis. Patient was seen by cardiology due to new onset atrial fibrillation. Started on metoprolol. Not on anticoagulation REVIEW OF SYSTEMS: Review of systems cannot be obtained because of patient's history of dementia PHYSICAL EXAMINATION: GENERAL: The patient is alert , not in any acute distress. Chronically ill Looking HEENT: Pupils are round and equally reacting to light. EOMI. No scleral icterus. No conjunctival pallor. Normocephalic, atraumatic. No pharyngeal erythema. No thyromegaly. CARDIOVASCULAR: S1 and S2 present. No murmurs, rubs, or gallops. PULMONARY: Chest is clear to auscultation, no wheezing or crackles. ABDOMEN: Soft, nontender, nondistended, normoactive bowel sounds. No palpable organomegaly. MUSCULOSKELETAL: No joint swelling or deformity. EXTREMITIES: No cyanosis, clubbing, or pedal edema. NEUROLOGICAL: Gross neurological examination did not reveal any focal deficits. SKIN: Sacral decubitus seen Assessment and plan new onset atrial fibrillation likely due to sepsis Sacral decubitus UTIwith Proteus mirabilis sepsis Proteus mirabilis bacteremia history of dementia Plan Monitor vital signs Monitor CBC Monitor CMP Follow-up repeat blood cultures urine culture showed Proteus mirabilis. Continue with ceftriaxone. Continue wound care. Continue IV fluids ID and cardiology is on board. DVT prophylaxis: Objective - Vital Signs Vital signs: Vital Signs Temp 98.9 F 09/10/22 20:00 Pulse 92 09/10/22 20:00 Resp 19 09/10/22 20:00 BP 138/72 09/10/22 20:00 Pulse Ox 92 L 09/10/22 20:00 FiO2 Intake & Output 09/10/22 09/10/22 09/11/22 06:59 18:59 06:59 Intake Total 395.25 Output Total 600 500 Balance -600 -104.75 Weight 64.864 kg Intake: Intake, IV Titration 45.25 Amount Diltiazem 125 mg In 45.25 Sodium Chloride 0.9% 100 ml @ 5 MG/HR 5 mls/hr IV .Q24H [facility] Rx#:[id number] Oral 350 Output: Urine 600 500 Other: Voiding Method Indwelling Catheter Indwelling Catheter Indwelling Catheter - Labs CBC & Chem 7: 09/11/22 06:46 09/12/22 07:52 Labs: Microbiology - Last 24 Hours (Table) 09/09/22 00:55 Urine Culture - Preliminary Urine,Voided Gram Neg Bacilli 09/09/22 01:00 Blood Culture Gram Stain - Preliminary Blood Blood Culture - Preliminary Gram Neg Bacilli 09/09/22 01:10 Blood Culture Gram Stain - Preliminary Blood Blood Culture - Preliminary Proteus Species Assessment and Plan Time with Patient: Greater than 30
--- NOTE | 2022-09-12 13:33 | P.PN ---
Subjective Progress Note Date: 09/11/22 patient is a 76-year-old gentleman with past medical history significant for dementia who presented to the ER because of fevers.patient is a resident of a care home. staff at facility was noticing patient has been spiking fevers and the blood pressure has been low.there was also complaining of lethargy and weakness. There was also low appetite. Patient has been complaining of cough. There was also sacral decub present. Because of these fevers patient was brought to the ER of [facility] lab work done in the ER showed white count 9.9, hemoglobin 10.5, platelet count 270, sodium 133, potassium 4.7, BUN 33, creatinine 1.09, calcium 8.2, UA done showed leukocyte Estrace positive, urine WBC more than 182 chest x-ray showed left basilar atelectasis patient was admitted to internal medicine service 09/10/2022 patient is currently lying in the bed. Awake alert and opens eyes with verbal stimuli. Could not provide any history. Currently on room air. patient has been afebrile.continued on ceftriaxone for urinary tract infection.urine culture showed Proteus mirabilis and blood cultures showed Proteus mirabilis. Patient was seen by cardiology due to new onset atrial fibrillation. Started on metoprolol. Not on anticoagulation. 09/11/2022 Patient is currently resting in bed. patient seems to be more awake and alert. Currently underway. No complaints of chest pain. Breathing status is stable. Patient is on antibiotics with ceftriaxone. Heart rate is controlled. Follow- up repeat culture report and anticipate discharged to rehabin the next 24 hours. REVIEW OF SYSTEMS: Review of systems cannot be obtained because of patient's history of dementia PHYSICAL EXAMINATION: GENERAL: The patient is alert , not in any acute distress. Chronically ill Looking HEENT: Pupils are round and equally reacting to light. EOMI. No scleral icterus. No conjunctival pallor. Normocephalic, atraumatic. No pharyngeal erythema. No thyromegaly. CARDIOVASCULAR: S1 and S2 present. No murmurs, rubs, or gallops. PULMONARY: Chest is clear to auscultation, no wheezing or crackles. ABDOMEN: Soft, nontender, nondistended, normoactive bowel sounds. No palpable organomegaly. MUSCULOSKELETAL: No joint swelling or deformity. EXTREMITIES: No cyanosis, clubbing, or pedal edema. NEUROLOGICAL: Gross neurological examination did not reveal any focal deficits. SKIN: Sacral decubitus seen Assessment and plan new onset atrial fibrillation likely due to sepsis Sacral decubitus UTIwith Proteus mirabilis sepsis Proteus mirabilis bacteremia history of dementia Plan Monitor vital signs Monitor CBC Monitor CMP Follow-up repeat blood cultures urine culture showed Proteus mirabilis. Continue with ceftriaxone. Continue wound care. Continue IV fluids ID and cardiology is on board. DVT prophylaxis: Objective - Vital Signs Vital signs: Vital Signs Temp 98.2 F 09/11/22 12:00 Pulse 73 09/11/22 12:00 Resp 17 09/11/22 12:00 BP 137/64 09/11/22 12:00 Pulse Ox 94 L 09/11/22 12:00 FiO2 Intake & Output 09/10/22 09/11/22 09/11/22 18:59 06:59 18:59 Intake Total 395.25 345.583 Output Total 500 600 875 Balance -104.75 -600 -529.417 Intake: Intake, IV Titration 45.25 105.583 Amount Diltiazem 125 mg In 105.583 Sodium Chloride 0.9% 100 ml @ 10 MG/HR 10 mls/hr IV .[id number] [facility] Rx#: [id number] Diltiazem 125 mg In 45.25 Sodium Chloride 0.9% 100 ml @ 5 MG/HR 5 mls/hr IV .Q24H [facility] Rx#:[id number] Oral 350 240 Output: Urine 500 600 875 Other: Voiding Method Indwelling Catheter Indwelling Catheter Indwelling Catheter - Labs CBC & Chem 7: 09/11/22 06:46 09/12/22 07:52 Labs: Abnormal Lab Results - Last 24 Hours (Table) 09/11/22 09/11/22 09/11/22 Range/Units 06:46 06:46 06:46 RBC 3.04 L (4.30-5.90) m/uL Hgb 9.3 L (13.0-17.5) gm/dL Hct 28.3 L (39.0-53.0) % PT 12.1 H (9.0-12.0) sec INR 1.2 H (<1.2) Potassium 3.4 L (3.5-5.1) mmol/L Glucose 102 H (74-99) mg/dL Calcium 7.7 L (8.4-10.2) mg/dL Microbiology - Last 24 Hours (Table) 09/09/22 00:55 Urine Culture - Final Urine,Voided Proteus mirabilis 09/09/22 01:00 Blood Culture Gram Stain - Final Blood Blood Culture - Final Proteus mirabilis 09/09/22 01:10 Blood Culture Gram Stain - Final Blood Blood Culture - Final Proteus mirabilis
--- NOTE | 2022-09-12 13:36 | P.DS ---
Providers Date of admission: 09/09/22 04:00 Expected date of discharge: 09/12/22 Attending physician: Muary Jack Consults: 09/09/22 10:33 Consult Physician Routine Consulting Provider: Karen Morse Consult Reason/Comments: UTI, sepsis Do you want consulting provider notified?: Yes 09/09/22 23:32 Consult Physician Routine Consulting Provider: Julien Chambers Consult Reason/Comments: new onset a fib rvr Do you want consulting provider notified?: Yes, Notify in am Primary care physician: [facility] Course: Discharge diagnosis new onset atrial fibrillation likely trigger due to sepsis. sepsis Sacral decubitus UTIwith Proteus mirabilis sepsis Proteus mirabilis bacteremia history of dementia Hospital course patient is a 76-year-old gentleman with past medical history significant for dementia who presented to the ER because of fevers.patient is a resident of a skilled nursing. staff at facility was noticing patient has been spiking fevers and the blood pressure has been low.there was also complaining of lethargy and weakness. There was also low appetite. Patient has been complaining of cough. There was also sacral decub present. Because of these fevers patient was brought to the ER of [facility] lab work done in the ER showed white count 9.9, hemoglobin 10.5, platelet count 270, sodium 133, potassium 4.7, BUN 33, creatinine 1.09, calcium 8.2, UA done showed leukocyte Estrace positive, urine WBC more than 182 chest x-ray showed left basilar atelectasis patient was admitted to internal medicine service 09/10/2022 patient is currently lying in the bed. Awake alert and opens eyes with verbal stimuli. Could not provide any history. Currently on room air. patient has been afebrile.continued on ceftriaxone for urinary tract infection.urine culture showed Proteus mirabilis and blood cultures showed Proteus mirabilis. Patient was seen by cardiology due to new onset atrial fibrillation. Started on metoprolol. Not on anticoagulation. 09/11/2022 Patient is currently resting in bed. patient seems to be more awake and alert. Currently underway. No complaints of chest pain. Breathing status is stable. Patient is on antibiotics with ceftriaxone. Heart rate is controlled. Follow- up repeat culture report and anticipate discharged to rehabin the next 24 hours.potassium was replaced. 09/12/2022 Patient is currently resting in bed. Awake alert. Mentation is at baseline. Patient's is at bedside. No complaints of chest pain or shortness of breath. Heart rate is controlled. IV antibiotics will be changed to Ceftin for 10 days as per ID recommendations. Continue with metoprolol. no Anti-coagulation due to history of falls. Patient is being transferred to ECF. replace her potassium. Follow-up CBC and BMP in next 3-5 days. REVIEW OF SYSTEMS: Review of systems cannot be obtained because of patient's history of dementia PHYSICAL EXAMINATION: GENERAL: The patient is alert , not in any acute distress. Chronically ill Looking HEENT: Pupils are round and equally reacting to light. EOMI. No scleral icterus. No conjunctival pallor. Normocephalic, atraumatic. No pharyngeal erythema. No thyromegaly. CARDIOVASCULAR: S1 and S2 present. No murmurs, rubs, or gallops. PULMONARY: Chest is clear to auscultation, no wheezing or crackles. ABDOMEN: Soft, nontender, nondistended, normoactive bowel sounds. No palpable organomegaly. MUSCULOSKELETAL: No joint swelling or deformity. EXTREMITIES: No cyanosis, clubbing, or pedal edema. NEUROLOGICAL: Gross neurological examination did not reveal any focal deficits. patient has underlying dementia and nonverbal. SKIN: Sacral decubitus seen Vital Signs 09/12/22 09/12/22 09:15 12:00 Temperature 98.7 F 98.8 F Pulse Rate [ 86 75 Pulse Oximetery ] Respiratory 17 16 Rate Blood Pressure 148/90 113/72 [Left Arm] O2 Sat by Pulse 97 97 Oximetry Total time taken greater than 35 minutes including 18 minutes for counseling and coordination of care. Patient Condition at Discharge: Stable Plan - Discharge Summary Discharge Rx Participant: No New Discharge Prescriptions: New Potassium Chloride ER [K-Dur 20] 20 meq PO DAILY 7 Days #7 tab Metoprolol Tartrate [Lopressor] 25 mg PO BID #60 tab cefUROXime axetiL [Ceftin] 500 mg PO BID 10 Days #20 tab Continue Brimonidine Tartrate [Alphagan P 0.2% Ophth Soln] 1 drop BOTH EYES BID@0800,1700 Ibuprofen [Motrin] 400 mg PO Q6HR PRN PRN Reason: Pain Or Fever > 100.5 Na Phos,M-B/Na Phos,Di-Ba [Fleet Adult] 133 ml RECTAL DAILY PRN PRN Reason: Constipation bisacodyL [Dulcolax] 10 mg RECTAL DAILY PRN PRN Reason: Constipation Carboxymethylcellulose Sodium [Thera Tears] 2 drop BOTH EYES DIRECTED PRN PRN Reason: Dry Eye(S) Acetaminophen Suppository [Tylenol Suppository] 650 mg RECTAL Q4H PRN PRN Reason: GENERAL DISCOMFORT Zinc 50 mg PO DAILY Cholecalciferol [Vitamin D3 (25 Mcg = 1000 Iu)] 25 mcg PO DAILY #30 tablet Acetaminophen [Tylenol 8 Hour] 650 mg PO Q4H PRN PRN Reason: GENERAL DISCOMFORT Valproic Acid Oral Soln [Depakene Syrup] 500 mg PO TID@0800,1400,2100 Ensure Enlive 120 ml PO TID@0800,1200,1700 Dorzolamide 2% [Trusopt 2%] 1 drop BOTH EYES BID@0600,1700 Netarsudil Mesylat/Latanoprost [Rocklatan 0.02%-0.005% Eye Drp] 1 drop BOTH EYES HS risperiDONE [risperiDONE ODT] 1 mg PO DAILY@1700 Tamsulosin HCl [Flomax] 0.4 mg PO DAILY Magnesium Hydroxide [Milk of Magnesia] 2,400 mg PO DAILY PRN PRN Reason: Constipation Discontinued amLODIPine [Norvasc] 2.5 mg PO DAILY Discharge Medication List Brimonidine Tartrate [Alphagan P 0.2% Ophth Soln] 1 drop BOTH EYES BID@0800,1700 03/24/21 [History] Ibuprofen [Motrin] 400 mg PO Q6HR PRN 03/24/21 [History] Zinc 50 mg PO DAILY 03/24/21 [History] Cholecalciferol [Vitamin D3 (25 Mcg = 1000 Iu)] 25 mcg PO DAILY #30 tablet 03/26/21 [Rx] Acetaminophen Suppository [Tylenol Suppository] 650 mg RECTAL Q4H PRN 09/09/22 [History] Acetaminophen [Tylenol 8 Hour] 650 mg PO Q4H PRN 09/09/22 [History] Carboxymethylcellulose Sodium [Thera Tears] 2 drop BOTH EYES DIRECTED PRN 09/09/22 [History] Dorzolamide 2% [Trusopt 2%] 1 drop BOTH EYES BID@0600,1700 09/09/22 [History] Ensure Enlive 120 ml PO TID@0800,1200,1700 09/09/22 [History] Magnesium Hydroxide [Milk of Magnesia] 2,400 mg PO DAILY PRN 09/09/22 [History] Na Phos,M-B/Na Phos,Di-Ba [Fleet Adult] 133 ml RECTAL DAILY PRN 09/09/22 [History] Netarsudil Mesylat/Latanoprost [Rocklatan 0.02%-0.005% Eye Drp] 1 drop BOTH EYES HS 09/09/22 [History] Tamsulosin HCl [Flomax] 0.4 mg PO DAILY 09/09/22 [History] Valproic Acid Oral Soln [Depakene Syrup] 500 mg PO TID@0800,1400,2100 09/09/22 [History] bisacodyL [Dulcolax] 10 mg RECTAL DAILY PRN 09/09/22 [History] risperiDONE [risperiDONE ODT] 1 mg PO DAILY@1700 09/09/22 [History] Metoprolol Tartrate [Lopressor] 25 mg PO BID #60 tab 09/12/22 [Rx] Potassium Chloride ER [K-Dur 20] 20 meq PO DAILY 7 Days #7 tab 09/12/22 [Rx] cefUROXime axetiL [Ceftin] 500 mg PO BID 10 Days #20 tab 09/12/22 [Rx] Follow up Appointment(s)/Referral(s): Skip Celaya MD [Primary Care Provider] - 1-2 days Discharge Disposition: TRANSFER TO SNF/F
[2022-09-12] MEDS ORDERED: POTASSIUM CHLORIDE 20 MEQ in WATER FOR INJECTION 1 100ML.BAG IVPB ONE (14:00)
[2022-09-12] MEDS ORDERED: POTASSIUM CHLORIDE ER 20 MEQ TAB.ER PO SCH (15:00)
[2022-09-12] MEDS: risperiDONE ODT 1 MG TAB PO SCH (16:02)
[2022-09-12 16:16] VITALS: BP 125/72; PULSE 70; RESP 17; TEMP 98.4
== END 2022-09-12 18:33 | DRG 698 ==
LOC: EC 00:40 → 5NMEDONC 04:00 → 3SCARD 23:10
PROVIDERS: ADMIT Hospitalist; ATTEND Hospitalist
DX: T83.511A Infection and inflammatory reaction due to indwelling urethral catheter, initial encounter (principal); A41.89 Other specified sepsis; Z16.24 Resistance to multiple antibiotics; L03.317 Cellulitis of buttock; L89.159 Pressure ulcer of sacral region, unspecified stage; F03.90 Unspecified dementia, unspecified severity, without behavioral disturbance, psychotic disturbance, mood disturbance, and anxiety; I11.9 Hypertensive heart disease without heart failure; F10.11 Alcohol abuse, in remission; B96.4 Proteus (mirabilis) (morganii) as the cause of diseases classified elsewhere; H40.9 Unspecified glaucoma; R29.6 Repeated falls; I48.0 Paroxysmal atrial fibrillation; R09.02 Hypoxemia; D33.2 Benign neoplasm of brain, unspecified; R33.9 Retention of urine, unspecified; Y73.1 Therapeutic (nonsurgical) and rehabilitative gastroenterology and urology devices associated with adverse incidents; Z20.822 Contact with and (suspected) exposure to COVID-19; Z28.310 Unvaccinated for COVID-19; Z87.891 Personal history of nicotine dependence; Z91.81 History of falling; Z79.899 Other long term (current) drug therapy
CPT/HCPCS: 36415; 71045; 76770; 80048; 80053; 81001; 82565; 83605; 85025; 85610; 87040; 87077; 87086; 87186; 87635; 87636; 93306; 96361; 96365; 96366; 96367; 96375; 99285